=== PATIENT | female | born 1945 | race Caucasian/White ===

== ENCOUNTER 2022-09-01 10:09 | Emergency (ER) | payer MEDICARE, SELFPAY ==
[2022-09-01 10:14] VITALS: BP 190/90; PULSE 92; RESP 20; TEMP 37.1; O2SAT 97; BMI 25.2
--- NOTE | 2022-09-01 10:30 | ED.URI1 ---
HPI - URI/Sore Throat General Chief Complaint: Upper Respiratory Infection Stated Complaint: URTI COMPLAINTS Time Seen by Provider: 09/01/22 10:30 Source: patient Limitations: no limitations History of Present Illness HPI Narrative: He presents emergency department complaining of a cough. She states she's had a cough for 10 days. She states the cough is productive at times but she doesn't spit it out so does not know what color it is. She states the cough is worsening and is making her gag. She denies any shortness of breath or wheezing. She denies any ingestion, or sore throat. Dr. Tran on Tuesday and was told to go to the emergency department. She ended up going to the urgent care and was started on Zithromax, Tessalon Perles, and prednisone. Patient has been taking this medications for the last 3 days and has not noted any improvement. She denies any fever, or chills. She denies any nausea, vomiting, diarrhea, constipation, or abdominal pain. She states is not helping her. She is looking for some relief of the cough. The patient states they did call the test and an influenza test and it was negative. There are no other sick contacts in the household. Related Data Previous Rx's Medication Instructions Recorded acetaminophen 300 mg-codeine 30 mg 1 tab PO Q8H PRN cough #10 tabs 09/01/22 tablet albuterol sulfate 90 mcg/actuation 2 inh inhalation Q4H PRN shortness 09/01/22 aerosol inhaler of breath or wheezing #8.5 grams Allergies Allergy/AdvReac Type Severity Reaction Status Date / Time No Known Drug Allergies Allergy Verified 09/01/22 10:16 Review of Systems ROS Status of ROS 10 or more systems reviewed and unremarkable except as noted in history and below Exam Narrative Exam Narrative: Nurses notes and vital signs reviewed and patient is not hypoxic. General: Nontoxic, Elderly, Well-appearing and in no apparent distress. Skin: Warm, dry, no pallor noted. No Rash Head: Normocephalic, atraumatic. Neck: Supple, non-tender. Eye: Pupils are equal, round and EOMI. No scleral icterus. Ears, Nose, Mouth, and Throat: TM clear, mild posterior oropharynx erythema, no nasal mucosal hypertrophy, uvula is mid-line Oral mucosa is moist Cardiovascular: Regular Rate and Rhythm without murmur, gallop or rub. Respiratory: No accessory muscle use or respiratory distress. Lungs Right lower lobe rhonchi Chest Wall: no tenderness Back: No midline thoracic or lumbar vertebral tenderness. No CVA tenderness Musculoskeletal: normal ROM, no calf or popliteal tenderness, no lower extremity edema/swelling GI: Abdomen is soft, non-distended. Normal bowel sounds. No masses appreciated. No tenderness to palpation. No rebound, guarding, or rigidity noted. Neurological: A&O x4. No cranial nerve dysfunction observed. No truncal ataxia. Moves all extremities. Sensation intact. Psychiatric: Cooperative and interactive. Normal mood and affect. Constitutional Vital Signs - 24 hr 09/01/22 10:14 Temperature 98.8 F Pulse Rate [Monitor] 92 H Respiratory Rate 20 Blood Pressure [Right Arm] 190/90 H Pulse Oximetry 97 Oxygen Delivery Method Room Air Course Vital Signs Vital signs: Vital Signs Temperature 98.8 F 09/01/22 10:14 Pulse Rate 92 H 09/01/22 10:14 Respiratory Rate 20 09/01/22 10:14 Blood Pressure 190/90 H 09/01/22 10:14 Pulse Oximetry 97 09/01/22 10:14 Oxygen Delivery Method Room Air 09/01/22 10:14 Temperature 98.8 F 09/01/22 10:14 Pulse Rate 92 H 09/01/22 10:14 Respiratory Rate 20 09/01/22 10:14 Blood Pressure 190/90 H 09/01/22 10:14 Pulse Oximetry 97 09/01/22 10:14 Oxygen Delivery Method Room Air 09/01/22 10:14 MDM - URI/Sore Throat MDM Narrative Medical decision making narrative: Discussed with patient risks and benefits of taking Tylenol with codeine to help with the cough. She understands. She will take stool softeners. She states she lives with her . We will give her one dose here and see how she does with that. Chest x-ray was ordered.Patient states she drove herself here and cannot take the Tylenol with Codeine now. She was given an injection of Rocephin and she wants to go. She does not want to wait until the respiratory panel is to return. Patient will be given a prescription for an albuterol inhaler too. At this time the patient is without objective evidence of an acute process requiring hospitalization or inpatient management. The patient has remained hemodynamically stable. No additional indication for emergent studies at this time. I answered all questions. Discussed discharge instructions including standard anticipatory guidance and what should prompt a return to the emergency department, including if they get worse are not getting better or develops any new or concerning symptoms. I've given them specific time frame in which to follow-up, and who to follow-up with. The patient demonstrates understanding. Patient is nontoxic and stable for discharge with outpatient follow-up. This note was created with the assistance of a speech recognition program. Although the intention is to generate documents that actually reflects the content of the visit, no guarantees can be provided that every mistake has been identified and corrected by editing. Differential Diagnosis Differential diagnosis: Likely upper respiratory infection, viral infection, bronchitis and pharyngitis Discharge Plan Discharge Chief Complaint: Upper Respiratory Infection Clinical Impression: Pneumonia Patient Disposition: Home, Self-Care Time of Disposition Decision: 11:08 Condition: Good Mode of Transportation: Private Vehicle Prescriptions / Home Meds: New acetaminophen-codeine 300-30 mg tablet 1 tab PO Q8H MDD J18.9 PRN (Reason: cough) Qty: 10 0RF albuterol sulfate 90 mcg/actuation HFA aerosol inhaler 2 inh inhalation Q4H PRN (Reason: shortness of breath or wheezing) Qty: 8.5 0RF Instructions: Pneumonia (ED) Stand Alone Forms: Portal Instructions Referrals: CLAUDE HALL [Physician] - 1 week Physician,Non-Staff, MD [Primary Care Provider] - 1 week
--- NOTE | 2022-09-01 10:37 | XR_ITS ---
The [address] [address] Patient Name: JOSE COLÓN MRN: [id number] date: 1945 Sex: F Assigned Patient Location: ER Current Patient Location: ED.MAIN Accession/Order Number: [id number] Exam Date: 09/01/2022 10:43 Report Date: 09/01/2022 10:59 At the request of: FRANCISCO RUFF Procedure: XR chest 1V EXAMINATION: XR chest 1V HISTORY: cough COMPARISON: No relevant comparison available. FINDINGS: LUNGS: Minimal stranding within medial right lung base. VASCULATURE: No increased pulmonary vasculature. PLEURA: No pneumothorax, effusion, or pleural thickening. CARDIAC: No cardiomegaly or cardiac silhouette abnormality. MEDIASTINUM: No visible mass or adenopathy. BONES: No fracture or visible bone lesion. OTHER: Negative. IMPRESSION: 1. Trace amount of right basilar infiltrates versus atelectasis. Electronically authenticated by: GIUSEPPE MALDONADO Date: 09/01/2022 10:59
[2022-09-01 10:50] LABS: Adenovirus NOT DETECTED (NOT DETECTE); Bordetella parapertussis NOT DETECTED (NOT DETECTE); Coronavirus 229E NOT DETECTED (NOT DETECTE); Coronavirus HKU1 NOT DETECTED (NOT DETECTE); Coronavirus NL63 NOT DETECTED (NOT DETECTE); Coronavirus OC43 NOT DETECTED (NOT DETECTE); Human Metapneumovirus NOT DETECTED (NOT DETECTE); Human Rhinovirus/Enterovirus NOT DETECTED (NOT DETECTE); Influenza A NOT DETECTED (NOT DETECTE); Influenza B NOT DETECTED (NOT DETECTE); Mycoplasma pneumoniae NOT DETECTED (NOT DETECTE); Parainfluenza Virus 1 NOT DETECTED (NOT DETECTE); Parainfluenza Virus 2 NOT DETECTED (NOT DETECTE); Parainfluenza Virus 3 NOT DETECTED (NOT DETECTE); Parainfluenza Virus 4 NOT DETECTED (NOT DETECTE); Respiratory Syncytial Virus NOT DETECTED (NOT DETECTE); SARS-CoV-2 NOT DETECTED (NOT DETECTE)
[2022-09-01 11:15] VITALS: RESP 18; O2SAT 98
[2022-09-01 11:47] LABS: Influenza A\\H1-2009 DETECTED
== END 2022-09-01 11:29 | disposition home or self-care (01) ==
PROVIDERS: Emergency Provider Emergency Medicine
DX: J18.9 Pneumonia, unspecified organism (principal); Z20.822 Contact with and (suspected) exposure to COVID-19
CPT/HCPCS: 0202U; 71045; 96372; 99284

== ENCOUNTER 2023-08-08 08:53 | Emergency (ER) | payer MEDICARE, SELFPAY ==
[2023-08-08 09:17] VITALS: BP 166/94; PULSE 83; TEMP 36.6; O2SAT 100; BMI 25.7
[2023-08-08 09:51] LABS: Bilirubin Urine NEGATIVE (NEGATIVE); Blood Urine NEGATIVE (NEGATIVE); Clarity Urine CLEAR (CLEAR); Color Urine LT. YELLOW (YELLOW); Glucose Urine UA NEGATIVE (NEGATIVE); Ketones Urine NEGATIVE (NEGATIVE); Leukocyte Esterase Urine SMALL (NEGATIVE); Nitrite Urine NEGATIVE (NEGATIVE); Protein Urine NEGATIVE (NEG/TRACE); Specific Gravity Urine <=1.005 (1.005-1.025); Urobilinogen Urine 0.2 EU/dL (0.2-1.0); pH Urine 5.5 (5.0-9.0)
[2023-08-08 10:02] LABS: RBC Urine NONE SEEN #/HPF (0-2)
[2023-08-08 10:03] LABS: Bacteria Urine TRACE #/HPF (NONE SEEN); Cast Seen? NONE SEEN #/LPF (NONE SEEN); Crystals Seen? None Seen #/HPF (None Seen); Mucus Urine NONE SEEN (NONE SEEN); Squamous Epithelial Cell Urine FEW #/LPF (NONE/RARE); Urine Culture Indicated YES
--- NOTE | 2023-08-08 10:07 | XR_ITS ---
The [address] [address] Patient Name: JOSE COLÓN MRN: [id number] date: 1945 Sex: F Assigned Patient Location: ER Current Patient Location: ER Accession/Order Number: [id number] Exam Date: 08/08/2023 10:35 Report Date: 08/08/2023 11:02 At the request of: LAUREN RODRIGUEZ Procedure: XR lumbar spine 2-3V EXAMINATION: XR lumbar spine 2-3V HISTORY: Atraumatic left-sided pain for a month COMPARISON: No relevant comparison available. FINDINGS: BONES: No significant spondylosis, scoliosis, fracture, or visible bony lesion. DISC SPACES: Multilevel mild narrowing. Moderate narrowing L5-S1. PARASPINOUS: Negative. No paraspinous abnormality is seen. 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 XR/XR lumbar spine 2-3V IMPRESSION: 1. No appreciable acute abnormality. 2. Moderate degenerative changes of lumbar spine. Electronically authenticated by: GIUSEPPE MALDONADO Date: 08/08/2023 11:02
--- NOTE | 2023-08-08 10:10 | ED.BACK1 ---
HPI HPI - Back Pain/Injury General Chief Complaint: Back Pain/Injury Stated Complaint: FLANK PAIN, LEFT Time Seen by Provider: 08/08/23 09:11 Source: patient Mode of arrival: walk-in Limitations: no limitations History of Present Illness HPI Narrative: 78-year-old female presents for left-sided back pain. She has had it for a month. It is worse when she bends over and she thought it might be a pulled muscle but it was not getting better so she came in. No dysuria or hematuria or frequency. She has had no trauma and she has no history of back issues. Related Data Previous Rx's ?Medication ?Instructions ?Recorded acetaminophen 300 mg-codeine 30 mg 1 tab PO Q8H PRN cough #10 tabs 09/01/22 tablet albuterol sulfate 90 mcg/actuation 2 inh inhalation Q4H PRN shortness 09/01/22 aerosol inhaler of breath or wheezing #8.5 grams methocarbamol 500 mg tablet 500 mg PO Q8H PRN pain #20 tabs 08/08/23 Allergies Allergy/AdvReac Type Severity Reaction Status Date / Time No Known Drug Allergies Allergy Verified 09/01/22 10:16 Opioid HPI Opioid Management Most Recent Opioid Data: Last Pain Scale 6 08/08/23 10:15 Review of Systems ROS Narrative A ten point review of systems is negative except as noted above. Exam Narrative Exam Narrative: Nurses note and vital signs reviewed and patient is not hypoxic. General: The patient appears well and in no apparent distress. Patient is resting comfortably on cart. Skin: Warm, dry, no pallor noted. There is no rash noted. Head: Normocephalic, atraumatic Eye: Normal conjunctiva, no drainage Ears, Nose, Mouth, and Throat: oral mucosa is moist. Nares patent. Cardiovascular: Regular Rate and Rhythm Respiratory: Patient is in no distress, no accessory muscle use, lungs are clear to auscultation, no wheezing, rales or rhonchi Back: No bruise rash or tenderness present GI: Soft and nontender Musculoskeletal: The patient has no evidence of calf tenderness, no pitting edema, symmetrical pulses noted bilaterally Neurological: A&O, normal speech Psychiatric: Cooperative Constitutional Vital Signs, click to edit/add: Last Vital Signs Temp 97.9 F 08/08/23 09:17 Pulse 69 08/08/23 10:50 Resp 16 08/08/23 10:50 BP 156/75 H 08/08/23 10:50 Pulse Ox 98 08/08/23 10:50 O2 Del Method Room Air 08/08/23 10:50 Course Vital Signs Vital signs: Vital Signs Temperature 97.9 F 08/08/23 09:17 Pulse Rate 83 08/08/23 09:17 Respiratory Rate 18 08/08/23 09:17 Blood Pressure 166/94 H 08/08/23 09:17 Pulse Oximetry 100 08/08/23 09:17 Temperature 97.9 F 08/08/23 09:17 Pulse Rate 69 08/08/23 10:50 Respiratory Rate 16 08/08/23 10:50 Blood Pressure 156/75 H 08/08/23 10:50 Pulse Oximetry 98 08/08/23 10:50 Oxygen Delivery Method Room Air 08/08/23 10:50 MDM - Back Pain/Injury MDM Narrative Medical decision making narrative: Her workup is negative including x-rays and blood work and urinalysis. X-ray showed mild degenerative changes. Findings are discussed with the patient and she is prescribed Robaxin. Treatment diagnosis and follow-up were discussed with the patient. Differential Diagnosis Differential diagnosis: Likely strain of lumbar region and other (UTI, compression fracture) Lab Data Attestation: I reviewed the patient's lab results. Labs: Lab Results 08/08/23 Range/Units 09:30 WBC 7.0 (4.0-11.0) 10^3/uL RBC 3.78 L (4.20-5.40) 10^6/uL Hgb 11.6 L (12.0-16.0) g/dL Hct 34.2 L (36.0-48.0) % MCV 90.5 (81.0-99.0) fL MCH 30.7 (26.7-34.0) pg MCHC 33.9 (29.9-35.2) g/dL RDW 12.1 (11.0-15.0) % Plt Count 298 (150-450) 10^3/uL MPV 9.3 L (9.5-13.5) fL Neut % (Auto) 54.4 (43.0-75.0) % Lymph % (Auto) 25.6 (20.5-60.0) % Stafford % (Auto) 9.7 (1.7-12.0) % Eos % (Auto) 8.8 H (0.9-7.0) % Baso % (Auto) 1.1 (0.2-2.0) % Neut # (Auto) 3.8 (1.4-6.5) 10^3/uL Lymph # (Auto) 1.8 (1.2-3.8) 10^3/uL Stafford # (Auto) 0.7 (0.3-0.8) 10^3/uL Eos # (Auto) 0.6 (0.0-0.7) 10^3/uL Baso # (Auto) 0.1 (0.0-0.1) 10^3/uL Abs Immat Gran (auto) 0.03 (0.00-0.03) 10^3/uL Imm/Tot Granulo (auto) 0.4 (0.0-0.5) % Sodium 133 L (136-145) mmol/L Potassium 3.7 (3.5-5.1) mmol/L Chloride 97 L (98-107) mmol/L Carbon Dioxide 29.9 (21.0-32.0) mmol/L Anion Gap 9.8 BUN 14.0 (7.0-18.0) mg/dL Creatinine 0.73 (0.55-1.02) mg/dL Est GFR ( Amer) >60 (>=60) Est GFR (Non-Af Amer) >60 (>=60) BUN/Creatinine Ratio 19.2 Glucose 107 H (74-106) mg/dL Calcium 9.4 (8.5-10.1) mg/dL Urine Color Lt. yellow (YELLOW) Urine Clarity Clear (CLEAR) Urine pH 5.5 (5.0-9.0) Ur Specific [place] <=1.005 A (1.005-1.025) Urine Protein Negative (NEG/TRACE) mg/dL Urine Glucose (UA) Negative (NEGATIVE) mg/dL Urine Ketones Negative (NEGATIVE) mg/dL Urine Occult Blood Negative (NEGATIVE) Urine Nitrite Negative (NEGATIVE) Urine Bilirubin Negative (NEGATIVE) Urine Urobilinogen 0.2 (0.2-1.0) EU/dL Ur Leukocyte Esterase Small A (NEGATIVE) Urine RBC None seen (0-2) #/HPF Urine WBC 2-5 A (NONE SEEN) #/HPF Ur Squamous Epith Cells Few A (NONE/RARE) #/LPF Urine Crystals None seen (None Seen) #/HPF Urine Bacteria Trace A (NONE SEEN) #/HPF Urine Casts None seen (NONE SEEN) #/LPF Urine Mucus None seen (NONE SEEN) Ur Culture Indicated? Yes Imaging Data Lumbar x-ray: Radiologist's impression: ITS Impressions Lumbar Spine X-Ray 08/08/23 10:07 IMPRESSION: 1. No appreciable acute abnormality. 2. Moderate degenerative changes of lumbar spine. Electronically authenticated by: GIUSEPPE MALDONADO Date: 08/08/2023 11:02 Discharge Plan Discharge Stand Alone Forms: Portal Instructions Chief Complaint: Back Pain/Injury Clinical Impression: Low back pain Patient Disposition: Home, Self-Care Time of Disposition Decision: 11:38 Condition: Good Mode of Transportation: Private Vehicle Prescriptions / Home Meds: New methocarbamol 500 mg tablet 500 mg PO Q8H PRN (Reason: pain) Qty: 20 0RF No Action acetaminophen-codeine 300-30 mg tablet 1 tab PO Q8H MDD J18.9 PRN (Reason: cough) Qty: 10 0RF albuterol sulfate 90 mcg/actuation HFA aerosol inhaler 2 inh inhalation Q4H PRN (Reason: shortness of breath or wheezing) Qty: 8.5 0RF Print Language: Persian Instructions: Acute Low Back Pain (ED) Referrals: Tian Mares DO [Primary Care Provider] - 1 week
[2023-08-08 10:30] LABS: Basophils Absolute Auto 0.1 10^3/uL (0.0-0.1); Basophils Percent Auto 1.1 % (0.2-2.0); Eosinophils Absolute Auto 0.6 10^3/uL (0.0-0.7); Eosinophils Percent Auto 8.8 % (0.9-7.0); Hematocrit 34.2 % (36.0-48.0); Hemoglobin 11.6 g/dL (12.0-16.0); Immature Granulocytes Abs Auto 0.03 10^3/uL (0.00-0.03); Immature Granulocytes Pct Auto 0.4 % (0.0-0.5); Lymphocytes Absolute Auto 1.8 10^3/uL (1.2-3.8); Lymphocytes Percent Auto 25.6 % (20.5-60.0); Mean Corpuscular HGB Conc 33.9 g/dL (29.9-35.2); Mean Corpuscular Hemoglobin 30.7 pg (26.7-34.0); Mean Corpuscular Volume 90.5 fL (81.0-99.0); Mean Platelet Volume 9.3 fL (9.5-13.5); Monocytes Absolute Auto 0.7 10^3/uL (0.3-0.8); Monocytes Percent Auto 9.7 % (1.7-12.0); Neutrophils Absolute Auto 3.8 10^3/uL (1.4-6.5); Neutrophils Percent Auto 54.4 % (43.0-75.0); Platelet Count 298 10^3/uL (150-450); Red Blood Count 3.78 10^6/uL (4.20-5.40); Red Cell Distribution Width 12.1 % (11.0-15.0)
[2023-08-08 10:35] LABS: Anion Gap 9.8; BUN Creatinine Ratio 19.2; Calcium 9.4 mg/dL (8.5-10.1); Carbon Dioxide 29.9 mmol/L (21.0-32.0); Chloride 97 mmol/L (98-107); Estimated GFR (African America >60 (>=60); Estimated GFR (Non-African Ame >60 (>=60); Glucose 107 mg/dL (74-106); Potassium 3.7 mmol/L (3.5-5.1); Sodium 133 mmol/L (136-145)
[2023-08-08 10:50] VITALS: BP 156/75; PULSE 69; O2SAT 98
[2023-08-08 11:43] VITALS: BP 145/75; PULSE 69; O2SAT 98
--- NOTE | 2023-08-14 08:53 | PC.NURSE ---
08/14/23 [address] portillo request no s/sx of uti at this time, due to low level of bacteria in urine and no s/sx no need for treatment at this time. pt educated as such and if s/sx do develop to f/u with pcp or in er for further tx. aDvid Zheng RN
== END 2023-08-08 11:47 | disposition home or self-care (01) ==
PROVIDERS: Emergency Provider Emergency Medicine; PCP Family Medicine
DX: M54.50 Low back pain, unspecified (principal); R82.90 Unspecified abnormal findings in urine
CPT/HCPCS: 36415; 72100; 80048; 81001; 85025; 87086; 87150; 87186; 99284

== ENCOUNTER 2024-10-29 15:18 | Outpatient (OUT) | payer MEDICARE, SELFPAY ==
--- OUTSIDE RECORDS SUMMARY | 2024-10-29 15:22 | XMS_ITS | Encounter Summary ---
Author Organization [facility] Address [address] [place] [address] Phone Care Team Providers Care Jewelry Coater Name Role Phone Tian Mares DO Primary Care Provider Encounter Details Date Type Department Care Team (Late st Contact Info) Description 12/01/2022 Scanned Document [facility] [address] [place] [address] Conversion, Onbase Social History Tobacco Use Types Packs/Day Years Used Date Smoking Tobacco: Never Assessed Comments Unknown Sex and Gender Information Value Date Recorded Sex Assigned at Not on file Legal Sex Female 2:04 PM EDT Gender Identity Not on file Sexual Orientation Not on file documented as of this encounter Plan of Treatment Not on file documented as of this encounter Procedures Procedure Name Priority Date/Time Associated Diagnosis Comments ELECTROCARDIOGRAM RHYTHM STRIP 12/01/2022 documented in this encounter Results * ELECTROCARDIOGRAM RHYTHM STRIP (12/01/2022) Narrative 12/01/2022 Ordered by an unspecified provider. us Onbase Conversion ECG ORDERABLES Final Result documented in this encounter Visit Diagnoses Not on filedocumented in this encounter Care Teams Jewelry Coater Relationship Specialty Start Date End Date Tian Mares DO PCP - General 12/13/22 documented as of this encounter
--- OUTSIDE RECORDS SUMMARY | 2024-10-29 15:22 | XMS_ITS | Clinical Summary ---
Author Organization [facility] Address [address] [place] [address] Phone Care Team Providers Care Top Executive Name Role Phone Tian Mares Leonard SOLITARIO Primary Care Provider [phone] Social History Tobacco Use Types Packs/Day Years Used Date Smoking Tobacco: Never Assessed Comments Unknown Sex and Gender Information Value Date Recorded Sex Assigned at Not on file Legal Sex Female 2:04 PM EDT Gender Identity Not on file Sexual Orientation Not on file Last Filed Vital Signs Vital Sign Reading Time Taken Comments Blood Pressure 188/80 12/13/2022 11:49 AM EDT Pulse 72 12/13/2022 11:48 AM EDT Temperature - - Respiratory Rate - - Oxygen Saturation - - Inhaled Oxygen Concentration - - Weight 67.1 kg (148 lb) 12/13/2022 11:48 AM EDT Height 162.6 cm (5' 4 ) 12/13/2022 11:48 AM EDT Body Mass Index 25.4 12/13/2022 11:48 AM EDT Plan of Treatment Health Maintenance Due Date Last Done Comments Lipid Panel 1945 Yearly Adult Physical 1945 DTaP/Tdap/Td Vaccines (1 - Tdap) 1966 Pneumococcal Vaccine (1 of 1 - PCV) 1994 Zoster Vaccines (1 of 2) 1994 Bone Density Scan 2009 RSV High Risk: (Elderly (60+ ) or Population) (1 - 1-dose 75+ series) 2019 COVID-19 Vaccine (1 - 2023-2 5 season) 2023 Influenza Vaccine (#1) 2024 HIB Vaccines Aged Out No longer eligi ble based on patient's age to complete this topic HPV Vaccines Aged Out No longer eligi ble based on patient's age to complete this topic Hepatitis A Vaccines Aged Out No long er eligible based on patient's age to complete this topic Hepatitis B Vaccines Aged Out No long er eligible based on patient's age to complete this topic IPV Vaccines Aged Out No longer eligi ble based on patient's age to complete this topic Meningococcal Vaccine Aged Out No arnoldo alexx eligible based on patient's age to complete this topic Rotavirus Vaccines Aged Out No longer eligible based on patient's age to complete this topic Care Teams Top Executive Relationship Specialty Start Date End Date Tian Mares DO PCP - General 12/13/22
--- OUTSIDE RECORDS SUMMARY | 2024-10-29 15:22 | XMS_ITS | Encounter Summary ---
Author Organization [facility] Address [address] [place] [address] Phone Care Team Providers Care Application Development Project Manager Name Role Phone Tian Mares DO Primary Care Provider [phone] Encounter Details Date Type Department Care Team (Late st Contact Info) Description 12/02/2022 Scanned Document [facility] [address] [place] [address] Conversion, Onbase Social History Tobacco Use Types Packs/Day Years Used Date Smoking Tobacco: Never Assessed Comments Unknown Sex and Gender Information Value Date Recorded Sex Assigned at Not on file Legal Sex Female 2:04 PM EDT Gender Identity Not on file Sexual Orientation Not on file documented as of this encounter Plan of Treatment Not on file documented as of this encounter Visit Diagnoses Not on filedocumented in this encounter Care Teams Application Development Project Manager Relationship Specialty Start Date End Date Tian Mares DO PCP - General 12/13/22 documented as of this encounter
--- OUTSIDE RECORDS SUMMARY | 2024-10-29 15:22 | XMS_ITS | Encounter Summary ---
Author Organization [facility] Address [address] [place] [address] Phone Care Team Providers Care Lead Caster Helper Name Role Phone Tian Mares DO Primary Care Provider [phone] Encounter Details Date Type Department Care Team (Late st Contact Info) Description 11/24/2022 Orders Only [facility] [address] [place] [address] Conversion, Onbase Social History Tobacco Use Types Packs/Day Years Used Date Smoking Tobacco: Never Assessed Comments Unknown Sex and Gender Information Value Date Recorded Sex Assigned at Not on file Legal Sex Female 2:04 PM EDT Gender Identity Not on file Sexual Orientation Not on file documented as of this encounter Plan of Treatment Scheduled Orders Name Type Priority Associated Diagnoses Orde r Schedule OUTSIDE LAB SCAN Lab Ordered: 11/24/2022 documented as of this encounter Visit Diagnoses Not on filedocumented in this encounter Care Teams Lead Caster Helper Relationship Specialty Start Date End Date Tian Mares DO PCP - General 12/13/22 documented as of this encounter
--- OUTSIDE RECORDS SUMMARY | 2024-10-29 15:22 | XMS_ITS | Clinical Summary ---
Author Organization [facility] Address [address] [place] [address] Care Team Providers Care Clear Coat Sprayer Name Role Phone Unavailable Primary Care Provider Unavailabl e Social History Tobacco Use Types Packs/Day Years Used Date Smoking Tobacco: Never Assessed Comments Unknown Sex and Gender Information Value Date Recorded Sex Assigned at Not on file Legal Sex Female 7:01 PM EDT Gender Identity Not on file Sexual Orientation Not on file Last Filed Vital Signs Vital Sign Reading Time Taken Comments Blood Pressure 128/60 10/05/2018 12:00 PM EDT Pulse - - Temperature - - Respiratory Rate - - Oxygen Saturation - - Inhaled Oxygen Concentration - - Weight 66.7 kg (147 lb) 08/17/2019 12:00 PM EDT Height 161.3 cm (5' 3.5 ) 08/17/2019 12:00 PM ED T Body Mass Index 25.63 08/17/2019 12:00 PM EDT Plan of Treatment Not on file Insurance [facility] MEDIC[facility]VANTAGE
--- OUTSIDE RECORDS SUMMARY | 2024-10-29 15:22 | XMS_ITS | Encounter Summary ---
Author Organization [facility] Address [address] [place] [address] Phone Care Team Providers Care Hardware Technician Name Role Phone Tian Mares DO Primary Care Provider [phone] Encounter Details Date Type Department Care Team (Late st Contact Info) Description 12/13/2022 Scanned Document [facility] [address] [place] [address] Conversion, Onbase Social History Tobacco Use Types Packs/Day Years Used Date Smoking Tobacco: Never Assessed Comments Unknown Sex and Gender Information Value Date Recorded Sex Assigned at Not on file Legal Sex Female 2:04 PM EDT Gender Identity Not on file Sexual Orientation Not on file documented as of this encounter Functional Status * Little interest or pleasure in doing things Answer Date of Assessment Author Not at all 12/13/2022 11:48 AM EDT Conversi on, [employer] Vitals documented as of this encounter Plan of Treatment Not on file documented as of this encounter Procedures Procedure Name Priority Date/Time Associated Diagnosis Comments ELECTROCARDIOGRAM RHYTHM STRIP 12/13/2022 documented in this encounter Results * ELECTROCARDIOGRAM RHYTHM STRIP (12/13/2022) Narrative 12/13/2022 Ordered by an unspecified provider. us Onbase Conversion ECG ORDERABLES Final Result documented in this encounter Visit Diagnoses Not on filedocumented in this encounter Care Teams Hardware Technician Relationship Specialty Start Date End Date Tian Mares DO PCP - General 12/13/22 documented as of this encounter
--- NOTE | 2024-10-29 15:26 | XR_ITS ---
The [place] [id number] Patient Name: JOSE COLÓN MRN: [id number] date: 1945 Sex: F Assigned Patient Location: [facility] Current Patient Location: [facility] Accession/Order Number: [id number] Exam Date: 10/29/2024 15:58 Report Date: 10/29/2024 15:59 At the request of: TOMMIE HALL DO Procedure: XR chest 2V Chest 2 views CLINICAL HISTORY: Acute Cough COMPARISON: Chest 09/01/2022 FINDINGS: Heart normal in size. Mild bibasilar scarring. No consolidation pneumothorax pleural effusion or free air. XR/XR chest 2V IMPRESSION: BIBASILAR SCARRING. NO CONSOLIDATION TO SUGGEST PNEUMONIA. Impression dictated by: Ford Escobar Jr., D.O. 10/29/2024 3:59 PM Dictation Location: [place] [address] Electronically authenticated by: [id number] Date: 10/29/2024 15:59
== END 2024-10-29 15:19 | disposition home or self-care (01) ==
LOC: RAD 15:20
PROVIDERS: PCP Family Medicine; Visit Provider Family Medicine
DX: R05.1 Acute cough (principal)
CPT/HCPCS: 71046

== ENCOUNTER 2025-01-21 08:17 | Outpatient (OUT) | payer MEDICARE, SELFPAY ==
--- OUTSIDE RECORDS SUMMARY | 2025-01-21 08:23 | XMS_ITS | Clinical Summary ---
Author Organization [facility] Address [address] [place] [address] Phone Care Team Providers Care Cullet Crusher Name Role Phone Tian Mares Leonard SOLITARIO Primary Care Provider [phone] Social History Tobacco UseTypesPacks/DayYears UsedDateSmoking Tobacco: Never Assessed CommentsUnknownSex and Gender InformationValueDate RecordedSex Assigned at Not on fileLegal YhoGajzya36/14/2023 2:04 PM EDTGender IdentityNot on fileSexual OrientationNot on file Last Filed Vital Signs Vital SignReadingTime TakenCommentsBlood Ryqpouun152/8009 11:49 AM EDT Maqyc6913/25/2023 11:48 AM EDTTemperature--Respiratory Rate--Oxygen Saturation-- Inhaled Oxygen Concentration--Mmeomt06.1 kg (148 lb)12/13/2022 11:48 AM EDT Scueqe858.6 cm (5' 4 )12/13/2022 11:48 AM EDTBody Mass Index25.409 11:48 AM EDT Plan of Treatment Health MaintenanceDue DateLast DoneCommentsLipid Panel5Yearly Adult Lelghhpn16/25/1946DTaP/Tdap/Td Vaccines (1 - Tdap)1966Pneumococcal Vaccine (1 of 1 - PCV)1994Zoster Vaccines (1 of 2)1994Bone Density Scan 2009RSV High Risk: (Elderly (60+) or Population) (1 - 1-dose 75+ series)2019Influenza Vaccine (#1)2024OVID-19 Vaccine (1 - 2024- season)2024HIB VaccinesAged OutNo longer eligible based on patient's age to complete this topicHPV VaccinesAged OutNo longer eligible based on patient's age to complete this topicHepatitis A VaccinesAged OutNo longer eligible based on patient's age to complete this topicHepatitis B VaccinesAged OutNo longer eligible based on patient's age to complete this topicIPV VaccinesAged OutNo longer eligible based on patient's age to complete this topicMeningococcal VaccineAged OutNo longer eligible based on patient's age to complete this topic Rotavirus VaccinesAged OutNo longer eligible based on patient's age to complete this topic Care Teams Team MemberRelationshipSpecialtyStart DateEnd Date Tian Mares DO [facility] - General12/13/22
--- OUTSIDE RECORDS SUMMARY | 2025-01-21 08:23 | XMS_ITS | Clinical Summary ---
Author Organization [facility] Address [address] [place] [address] Care Team Providers Care Searchlight Operator Name Role Phone Unavailable Primary Care Provider Unavailabl e Social History Tobacco UseTypesPacks/DayYears UsedDateSmoking Tobacco: Never Assessed CommentsUnknownSex and Gender InformationValueDate RecordedSex Assigned at Not on fileLegal HaqIfgqta28/15/2023 7:01 PM EDTGender IdentityNot on fileSexual OrientationNot on file Last Filed Vital Signs Vital SignReadingTime TakenCommentsBlood Wkilfdmx871/6007 12:00 PM EDT Pulse--Temperature--Respiratory Rate--Oxygen Saturation--Inhaled Oxygen Concentration--Fveolg98.7 kg (147 lb)08/17/2019 12:00 PM OSAZxrblx733.3 cm (5' 3.5 )08/17/2019 12:00 PM EDTBody Mass Index25.63008/17/2019 12:00 PM EDT Plan of Treatment Not on file Insurance
--- OUTSIDE RECORDS SUMMARY | 2025-01-21 08:26 | XMS_ITS | CCD ---
Author Organization [facility] CliniSyri Care Team Providers Care Psychological Examiner Name Role Phone Tian Hlal Unavailable Suzan, DO Tian Primary Care Provider [phone] Suzan, DO Tian Attending Provider DO Tian Hall Primary Care Provider [phone] Suzan DO Tian Attending Provider [phone] Tian Hall P Unavailable Unavailable Unavailable Suzan, Dr. Tian Phillips Primary Care Unavaila ble Charu SAM, Dr. Shaheen Phillips Referring Unavailable Charu SAM, Dr. Shaheen Phillips Attending Unavailable DO Tian Hall Primary Care Provider [phone] DO Tian Hall Attending Provider DO Tian Hall Referring Provider [phone] Self, Referral Attending Provider Unavailable Tian Hall DO Primary Care Provider Tian Hall DO Referring Provider [phone] Self, Referral Attending Provider Unavailable Tian Hall DO Attending Provider TIAN HALL P Referring Unavailable Tian Hall DO Primary Care Provider Felicia IRIZARRY, Edmond Haque Attending Provider Tian Hall Primary Care Unavailable Tian Hall Attending Unavailable Tian Hall Admitting Unavailable Self, Referral Attending Unavailable Tian Hall Primary Care Unavailable Tian Hall Referring Unavailable Self, Referral Admitting Unavailable Tian Hall Primary Care Unavailable Tian Hall Attending Unavailable Tian Hall Admitting Unavailable Tian Hall Primary Care Unavailable Edmond Duarte Admitting Edmond Ash Attending Tian Ortiz DO Primary Care Provider Edmond Duarte MD Attending Provider Teresa Chapman APRN Attending Provider Tian Hall DO Attending Provider Medications Current Medications MedicationDrug Class(es)DatesSig (Normalized)Sig (Original)Accu-Chek Stephania Plus - (20 sources)Start: 01-27-4624Zxgi-Chek Stephania Plus - check glucose In Vitro one time per day for E11.9 May, ActiveStart: 06-40-4018Dhjk-Chek Stephania Plus - as directed In Vitro May, Activeamoxicillin 500 mg / clavulanate 125 mg oral tablet (1 source)Penicillin-class AntibacterialStart: 85-65-8309nnxa 1 tablet by mouth every twelve hoursAmoxicillin-Pot Clavulanate (Augmentin) 500-125 mg tablet Active 1 TAB PO Every 12 hours October 25, 2024 12:00am Complies with drug therapybenzonatate 100 mg oral capsule (3 sources)Non-narcotic AntitussiveStart: 02-59-9196wmqi 1 capsule by mouth three times daily as neededTessalon Perles 100 MG 1 capsule as needed Orally Three times a day for 7 days Aug, ActiveStart: 33-84-6681fybh 1 capsule by mouth every eight hoursBenzonatate 200 MG 1 capsule Orally Three times a day for 30 days Apr, ActiveBlood Sugar Diagnostic (3 sources)Start: 72-11-7661Jehjy Sugar Diagnostic Active 0 .ROUTE June 21, 2023 12:00am As directedCalcium (20 sources)Phosphate Binder, CalciumCalcium as directed Orally Activecalcium acetate 600 mg oral tablet (17 sources)Start: 19-76-6184dkug 600 mg by mouth once dailycalcium acetate Active 600 MG PO Daily March 30, 2024 9:59am Complies with drug therapy Start: 06-21-2023 End: 14-85-6428tsojvks acetate Discontinued PO June 21, 2023 12:00am March 30, 2024 10:03amStart: 06-21-2023 End: 03-69-1992dpjuggh acetate Discontinued PO June 20, 2023 11:00pm March 30, 2024 9:03amStart: 49-06-0758ycwthku acetate Active PO June 21, 2023 12:00amChia Seed - (20 sources)Bam Seed - as directed Orally Activecholecalciferol 0.125 mg oral capsule (7 sources)Vitamin DStart: 04-24-5063smev 1 capsule by mouth once daily Cholecalciferol (Vitamin D3) 125 mcg (5,000 unit) capsule Active 125 MCG PO Daily March 30, 2024 1:00am Complies with drug therapycinnamon bark 500 mg oral capsule (18 sources)Start: 06-21-2023 End: 14-24-2939kuwt 1 capsule by mouth once dailyCinnamon Bark 500 mg capsule Active 1000 MG PO Daily March 30, 2024 9:58am Complies with drug therapy Start: 77-73-6015Kgqrsizk Bark Active MG PO As Directed June 21, 2023 12:00am Cinnamon 500 MG as directed Orally Activecinnamon preparation 500 mg oral tablet (20 sources)Non-Standardized Food Allergenic ExtractCinnamon 500 MG as directed Orally Activeempagliflozin 10 mg oral tablet (3 sources)Sodium-Glucose Cotransporter 2 InhibitorStart: 17-41-8082suly 1 tablet by mouth every twenty-four hoursJardiance 10 MG 1 tablet Orally Once a day for 90 days Nov, ActiveFish Oils (20 sources)take 1 capsule by mouth once dailyFish Oil 1000 MG 1 capsule Orally Once a day ActiveFlaxseed extract (10 sources)Non-Standardized Food Allergenic Extract, Non-Standardized Plant Allergenic ExtractStart: 76-25-5225Lhcmwavo powder Active EACH PO June 21, 2023 12:00am Complies with drug therapyStart: 52-45-1444Mzsdcybc powder Active EACH PO June 21, 2023 12:00amStart: 06-85-3543Bweowdzr powder Active EACH PO June 20, 2023 11:00pmStart: 88-81-9077Lxlwnans Active EACH PO June 21, 2023 12:00amFlaxseed Oil 1000 MG (19 sources)Flaxseed Oil 1000 MG as directed Orally Activefluorouracil 50 mg/ml topical cream (3 sources)Nucleoside Metabolic InhibitorStart: 47-76-8321Nxwpnw 5 % 1 application to affected area Externally Twice a day Apr, Active glimepiride 1 mg oral tablet (10 sources)SulfonylureaStart: 01-31-2024 End: 00-12-0230avia 1 tablet by mouth twice dailyGlimepiride 1 mg tablet Active 1 MG PO Twice daily 180 July 30, 2024 12:39pm Complies with drug therapyStart: 55-95-0549gzhg 1 tablet by mouth every twenty-four hoursGlimepiride 1 MG 1 tablet with breakfast or the first main meal of the day Orally Once a day for 90 days 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 Quantity: 90 Refills: 3 Ordered: 13-Dec-2022 Shaheen Box MD Start : 13-Dec-2022 Active NEW START Hydrochlorothiazide-12.5 mg 12.5 mg (3 sources)take 1 tablet by mouth once dailyHydrochlorothiazide-12.5 mg 12.5 mg 1 tablet Orally Once a day for 90 days Activetake 1 tablet by mouth once daily Hydrochlorothiazide-12.5 mg 12.5 mg 1 tablet Orally Once a day Active levoFLOXacin 500 mg oral tablet (1 source)Quinolone AntimicrobialStart: 86-80-1602pzmy 1 tablet by mouth once dailyLevofloxacin 500 mg tablet Active 500 MG PO Daily 09 24October 29, 2024 12:00am Complies with drug therapylevothyroxine sodium 0.05 mg oral tablet (20 sources)l-ThyroxineStart: 06-21-2023 End: 75-73-7563srka 1 tablet by mouth once dailyLevothyroxine 50 mcg tablet Active 50 MCG PO Daily March 15, 2024 1:18pm Complies with drugtherapy Start: 51-06-7739Tyxtnwtwluxkw Sodium 50 MCG 1 tablet every morning on an empty stomach Orally Once a day for 90 days Oct, ActiveStart: 10-21-2016 Levothyroxine Sodium 50 MCG 1 tablet every morning on an empty stomach Orally Once a day Oct, Activetake 1 capsule by mouth once daily before breakfastLevothyroxine Sodium 50 MCG Oral Capsule TAKE 1 CAPSULE BY MOUTH EVERY MORNING BEFORE BREAKFAST ON EMPTY STOMACH Quantity: 90 Refills: 3 Ordered: 13-Dec-2022 DO Activelinseed oil 1000 mg oral capsule (1 source)Flaxseed Oil 1000 MG as directed Orally Activeniacin 500 mg oral tablet (7 sources)Nicotinic AcidStart: 84-91-5219besi 1 tablet by mouth once daily Niacin 500 mg tablet Active 500 MG PO Daily March 30, 2024 1:00am Complies with drug therapyomega-3 fatty acids (Fish Oil) (17 sources)Start: 07-74-7449uwrr 1 capsule by mouth once dailyomega-3 fatty acids (Fish Oil) Active 1 CAP PO Daily March 30, 2024 10:00am Complies with drug therapyStart: 92-24-7618rvjf 1 capsule by mouth once dailyomega-3 fatty acids (Fish Oil) Active 1 CAP PO Daily March 30, 2024 10:00amStart: 11-25-9890gusl 1 capsule by mouth once dailyomega-3 fatty acids (Fish Oil) Active 1 CAP PO Daily March 30, 2024 9:00amStart: 06-21-2023 End: 15-00-1023dpahq-3 fatty acids (Fish Oil) Discontinued PO June 21, 2023 12:00am March 30, 2024 10:03amStart: 06-21-2023 End: 31-19-7736nhrir-3 fatty acids (Fish Oil) Discontinued PO June 20, 2023 11:00pm March 30, 2024 9:03amStart: 50-04-8096ewaez-3 fatty acids (Fish Oil) Active PO June 21, 2023 12:00ampredniSONE 10 mg oral tablet (10 sources)Start: 77-54-4849Qvtdaxcusm 10 mg tablet Active 10 MG PO .COMPLEX October 29, 2024 12:00am 10 mg orally BID x 5 days, QD X5 DAYS; Complies with drug therapyStart: 10-29-2024 End: 26-41-5829Tgpkggapym 20 mg tablet Discontinued 20 MG PO .COMPLEX October 29, 2024 12:00am October 29, 2024 9:36am 20 mg orally BID x 5 days, QD x 5 days;Start: 10-19-2024 End: 79-44-9128rheb 1 tablet by mouth once dailyPrednisone 20 mg tablet Discontinued 20 MG PO Daily 5 October 19, 2024 12:00am October 25, 2024 1:23pm Start: 47-12-6080ibhm 1 tablet by mouth every twelve hoursprednisone 20 MG 1 tablet Orally BID for 5 Aug, ActiveStart: 68-55-2916adcykdGFJE 20 MG 1 tablet Orally BID X 5 DAYS, QD X 5 DAYS for 10 DAYS Apr, ActiveStart: 13-22-3157yhldsrAOSQ 20 MG 1 tablet Orally BID x 5 days then daily x 5 days for 10 days Oct, ActiveProbiotic - (3 sources)Probiotic - Orally ActiveTurmeric Root Extract 500 mg tablet (7 sources)Start: 28-62-7459mrpk 1 tablet by mouth once dailyTurmeric Root Extract 500 mg tablet Active 1000 MG PO Daily March 30, 2024 1:00am Complies withdrug therapyStart: 04-02-1886ppfj 1 tablet by mouth once dailyTurmeric Root Extract 500 mg tablet Active 1000 MG PO Daily March 30, 2024 1:00amStart: 81-65-8288jxtt 1 tablet by mouth once dailyTurmeric Root Extract 500 mg tablet Active 1000 MG PO Daily March 30, 2024 12:00amubidecarenone 100 mg oral capsule (7 sources)Start: 60-50-4712Ijctyivq Q10 (Coq-10) 100 mg capsule Active 300 MG PO Daily March 30, 2024 1:00am Complies withdrug therapyvitamin b12 1 mg oral capsule (7 sources)Vitamin H72Wtnnp: 69-80-7791yqzq 1 capsule by mouth once daily Cyanocobalamin (Vitamin B-12) 1,000 mcg capsule Active 1000 MCG PO Daily March 30, 2024 1:00am Complies with drug therapyVitamin D 1000 UNIT (3 sources)take 1 tablet by mouth once dailyVitamin D 1000 UNIT 1 tablet Orally Once a day for 30 day(s) Activevitamin e 180 mg oral capsule (7 sources)Start: 20-08-5609tzvc 1 capsule by mouth once dailyVitamin E (Dl, Acetate) 180 mg (400 unit) capsule Active 180 MG PO Daily March 30, 2024 1:00am Complies with drug therapy Completed/Discontinued Medications MedicationDrug Class(es)DatesSig (Normalized)Sig (Original)azithromycin 250 mg oral tablet (8 sources)Macrolide AntimicrobialStart: 10-19-2024 End: 40-06-3835Bpfvqwyivvwg (Zithromax Z-Yuan) 250 mg tablet Discontinued 0 PO .COMPLEX 6 October 19, 2024 12:00am October 25, 2024 1:22pm For 250 mg dose pack: take 500 mg today (day 1), then 250 mg for 4 days (days 2-5) POStart: 55-11-3437Ueoryebxqdef 250 MG 2 tablet on the first day, then 1 tablet daily for 4 days Orally Once a day for5 day(s) Aug, ActiveStart: 05-04-2022 Zithromax Z-Yuan 250 MG 2 tablets on the first day, then 1 tablet daily for 4 days Orally Once a dayfor 5 day(s) Apr, ActiveStart: 17-52-6990Recqdzoje Z-Yuan 250 MG as directed Orally as directed Oct, Activebetamethasone 1 mg/ml topical cream (20 sources)CorticosteroidStart: 06-21-2023 End: 83-19-4200Wwaweumorhhnq Valerate 0.1 % cream Discontinued 1 APPLIC TOPICAL Daily June 21, 2023 12:00am March 30, 2024 10:02am 1 application to affected area Externally Once a dayStart: 30-78-7049Hhcnrrqephanx Valerate 0.1 % 1 application to affected area Externally Once a day Oct, ActiveStart: 44-09-4850Nvyqydickcuxm Valerate 0.1 % 1 application to affected area Externally Once a day Oct, Activeesomeprazole 40 mg delayed release oral capsule (20 sources)Proton Pump InhibitorStart: 06-22-2023 End: 50-57-7193drgh 1 capsule by mouth once dailyEsomeprazole Magnesium 40 mg capsule,delayed release(DR/EC) Discontinued 40 MG PO Daily June 22, 2023 9:42am March 30, 2024 10:03amlisinopril 20 mg oral tablet (20 sources)Angiotensin Converting Enzyme InhibitorStart: 06-21-2023 End: 31-28-9396szgc 1 tablet by mouth once dailyLisinopril 20 mg tablet Discontinued 20 MG PO Daily June 21, 2023 12:00am June 22, 2023 9:42amStart: 92-45-3930vgvr 1 tablet by mouth every twenty-four hoursLisinopril 20 MG 1 tablet Orally Once a day for 90 days Jan, ActiveStart: 81-79-3700hfmc 1 tablet by mouth every twenty-four hoursLisinopril 5 MG 1 tablet Orally Once a day for 90 days Jan, ActivemetFORMIN hydrochloride 500 mg oral tablet (20 sources)BiguanideStart: 06-21-2023 End: 57-56-9191vuuq 1 tablet by mouth twice dailyMetformin 500 mg tablet Discontinued 500 MG PO Twice daily 180 June 22, 2023 9:42am July 04, 2024 3:42pmStart: 67-67-6467plok 1 tablet by mouth every twelve hoursmetFORMIN HCl 500 mg 1 tablet with meals Orally Twice a day Jan, Activeolmesartan medoxomil 20 mg oral tablet (20 sources)Angiotensin 2 Receptor BlockerStart: 06-22-2023 End: 15-11-4101uhyg 1 tablet by mouth once dailyOlmesartan 20 mg tablet Discontinued 20 MG PO Daily March 19, 2024 10:04am March 19, 2024 12:52pmsimvastatin 20 mg oral tablet (20 sources)HMG-CoA Reductase InhibitorStart: 06-21-2023 End: 94-51-3914dofv 1 tablet by mouth once dailySimvastatin 20 mg tablet Discontinued 20 MG PO Daily June 22, 2023 8:58am June 22, 2023 9:43am Start: 01-58-6153Tiyknlskvoy 20 MG 1 tablet every evening Orally Once a day Sep, Activesucralfate 1000 mg oral tablet (9 sources)Aluminum ComplexStart: 07-13-2023 End: 49-16-0296yjjn 1 tablet by mouth twice daily 30 minutes before breakfast Sucralfate (Carafate) 1 gram tablet Discontinued 1 GM PO Twice daily 60 July 13, 2023 12:00am March 30, 2024 10:03am take 1 tablet 30 mins before breakfast and then take 1 tablet 30 mins before dinner Problems Active Problems Problem ClassificationProblemDateDocumented DateEpisodic/ChronicAbdominal pain (11 sources)Epigastric pain; Translations: [Epigastric pain]49-00-0913Xyxujwmj Acute bronchitis (2 sources)Acute bronchiolitis due to respiratory syncytial virus; Translations: [Acute bronchitis due to respiratory syncytial virus]Episodic Administrative/social admission (8 sources)Patient encounter status; Translations: [Other specified counseling] 33-35-2285NmyrakcsIqpdvpp dysrhythmias (18 sources)Palpitations; Translations: [Palpitations]Onset: 40-45-0770Zqtdzwim Diabetes mellitus without complication (20 sources)Diabetes mellitus without complication; Translations: [Type 2 diabetes mellitus without complications]Onset: 12-17-2020 Resolved: 22-67-1185UzcmpaoPzbljfmgb of lipid metabolism (20 sources)Hyperlipidemia; Translations: [Hyperlipidemia, unspecified]Onset: 12-17-2020 Resolved: 31-94-5639ClzaylnQxlrgbpmev disorders (11 sources)Gastroesophageal reflux disease; Translations: [Gastro-esophageal reflux disease without esophagitis]17-67-2209WgxoxvdVyrmsvrew hypertension (20 sources)Benign essential hypertension; Translations: [Benign essential hypertension]34-54-8425VctkveiWpjtgofbi of unspecified nature or uncertain behavior (11 sources)Neoplasm of uncertain behavior, unspecified; Translations: [Neoplasm of uncertain behavior of skin]EpisodicOther circulatory disease (8 sources)Elevated blood-pressure reading, without diagnosis of hypertension Onset: 10-20-2021 Resolved: 20-29-2736IfmlbbmiTbzml circulatory disease (2 sources)Pulmonary congestion ; Translations: [Other specified symptoms and signs involving the circulatory and respiratory systems]36-85-7607FoywcifrRzclf connective tissue disease (1 source)Pain in right footEpisodicOther ear and sense organ disorders (20 sources)Ear lesion; Translations: [Unspecified disorder of ear, unspecified ear]EpisodicOther gastrointestinal disorders (10 sources)Constipation; Translations: [Constipation, unspecified]06-22-2023 EpisodicOther gastrointestinal disorders (1 source)Constipation, unspecified; Translations: [Constipation, unspecified] 19-00-1483JzryvhwmVscsf lower respiratory disease (11 sources)Cough; Translations: [Cough]89-43-3218RszhgcswZmkqc lower respiratory disease (2 sources)Cough; Translations: [Acute cough]34-14-8095IllynawbNjcho nervous system disorders (20 sources)Neuropathy; Translations: [Polyneuropathy, unspecified]06-21-2023 ChronicOther nervous system disorders (2 sources)Polyneuropathy, unspecified; Translations: [Neuropathy G62.9]Onset: 12-17-2020 Resolved: 80-92-4183VxeowmwDvpdk nervous system disorders (6 sources)Skin sensation disturbance; Translations: [Paresthesia of skin] EpisodicOther nervous system disorders (1 source)Paresthesia of skinEpisodicOther nutritional; endocrine; and metabolic disorders (1 source)Overweight in adulthood with body mass index of 25 or more but less than 30; Translations: [Overweight]EpisodicOther screening for suspected conditions (not mental disorders or infectious disease) (14 sources)Encounter for other screening for malignant neoplasm of breast; Translations: [Encounter for screening for malignant neoplasm of colon]Onset: 06-17-2021 Resolved: 85-44-4889UihpzhxnCsmls skin disorders (1 source)Other seborrheic keratosisEpisodicOther upper respiratory infections (2 sources)Sinusitis; Translations: [Chronic sinusitis, unspecified]10-25-2024 ChronicResidual codes; unclassified (2 sources)Pain, unspecifiedEpisodicResidual codes; unclassified (10 sources)Edema of lower extremity; Translations: [Localized edema]06-22-2023 EpisodicResidual codes; unclassified (1 source)Localized edema; Translations: [Edema]18-88-1591XhnczjqoUfiifbt disorders (20 sources)Hypothyroidism; Translations: [Hypothyroidism, unspecified]Onset: 12-17-2020 Resolved: 71-79-7259Ykcxgqy Past or Other Problems Problem ClassificationProblemDateDocumented DateEpisodic/ChronicDiabetes mellitus without complication (1 source)Hyperglycemia, unspecifiedOnset: 10-05-2021 Resolved: 43-67-0662XjcbtekuMjradcxg; including migraine (1 source)Headache; including migraineOther connective tissue disease (1 source)Pain in right legOnset: 06-17-2021 Resolved: 88-64-8979ZorwdxrlFyoxhw media and related conditions (1 source)Other specified disorders of Eustachian tube, unspecified earOnset: 10-20-2021 Resolved: 75-55-9792QgnkasblGrunmxiuljhr (2 sources)Cough R05.9Onset: 10-20-2021 Resolved: 32-79-7086Igavowafbida (1 source)Never smoked tobacco; Translations: [Never a smoker] Results Test NameValueInterpretationReference RangeFacilityNo Panel InformationOrdered By: Tian Hall on 12-40-5825APC (POC)[facility] OhioFPG ECG *CARDIOLOGY ONLY*on 21-17-3479JKQ ECG *CARDIOLOGY ONLY*[facility] [place] [address] Electrocardiograph Report Signed Patient: Cecilia Colón MR#: [id number] 556 : 1945 Acct:[id number] Age/Sex: 79 / F ADM Date: 06/28/24 Loc: EKGCARD Room: Type: [facility] Attending Dr: Edmond Duarte MD Ordering Provider: Edmond Duarte MD Date of Service: 06/28/2401/12/855 ECG/FPG ECG *CARDIOLOGY ONLY*: R00.2 - Palpitations Copies to: Test Reason : Blood Pressure : */* mmHG Vent. Rate : 84 BPM Atrial Rate : 84 BPM P-R Int : 202 ms QRS Dur : 84 ms QT Int : 360 ms P-R-T Axes : 61 -18 4 degrees QTcB Int : 425 ms Normal sinus rhythm Minimal voltage criteria for LVH, may be normal variant ( R in aVL ) Nonspecific T wave abnormality Abnormal ECG When compared with ECG of 30-Mar-2024 09:25, No significant change was found Confirmed by Edmond Duarte ([id number]) on 06/29/2024 8:56:36 PM Referred By: Electronically Signed By: Edmond Duarte Transcribed By: MUS Signed By Edmond Duarte MD 06/29/242055[facility] Physician GroupXR CHEST 2 VIEWSon 75-50-2715EE CHEST 2 VIEWSXR CHEST 2 VIEWS Reason for exam: Dry cough for six months intermittently, palpitations Technique: PA and lateral view Findings: The heart size is normal. The pulmonary vascularity is unremarkable. There is platelike subsegmental atelectasis at the lateral left lung base, otherwise the lungs are clear. No pleural abnormalitiesare seen. No evidence of mediastinal or hilar enlargement. The osseous structures are intact. No soft tissue abnormalities are seen. IMPRESSION: No acute findings. Dictated on: 06/12/2024 5:48 PM This report has been electronically signed and approved by the interpreting Radiologist.NormalNot AvailableFPG ECG *PCP OFFICE ONLY*on 48-69-0271GNX ECG *PCP OFFICE ONLY*[facility] [place] [address] [place] [address] Electrocardiograph Report Signed Patient: Cecilia Colón MR#: [id number] 556 : 1945 Acct:[id number] Age/Sex: 78 / F ADM Date: 03/30/24 Loc: EKGCAST Room: Type: [facility] Attending Dr: Tian Hall DO Ordering Provider: Tian Hall DO Date of Service: 03/30/2401/12/914 ECG/FPG ECG *PCP OFFICE ONLY*: R00.2 - Palpitations Copies to: Test Reason : Blood Pressure : */* mmHG Vent. Rate : 68 BPM Atrial Rate : 68 BPM P-R Int : 186 ms QRS Dur : 80 ms QT Int : 386 ms P-R-T Axes : 63 0 198 degrees QTcB Int : 410 ms Normal sinus rhythm Minimal voltage criteria for LVH, may be normal variant ( R in aVL ) Abnormal ECG Confirmed by Elaine Mcguire ([id number]) on 03/30/2024 1:07:40 PM Referred By: Electronically Signed By: Elaine Mcguire Transcribed By: MUS Signed By Elaine Mcguire MD [address] [place] [address] Physician MnncuLfL7m HPLC (Bld) [Mass fraction]on 74-36-0451PnH5f (Bld) [Mass fraction]Hemoglobin A1c/Hemoglobin.total in Blood by [facility] screening mammo BI w/CADon 61-24-1000QU screening mammo BI w/[facility] [place] [address] Mammography Report Signed Patient: Cecilia Colón MR#: [id number] 556 : 1945 Acct:[id number] Age/Sex: 78 / F ADM Date: 01/05/24 Loc: ME Room: Type: [facility] Attending Dr: Referral Self Copies to: Tian Hall, SELF,REFERRAL Ordering Provider: SELF,REFERRAL Date of Service: 01/05/24 MM/MM screening mammo BI w/CAD: SCREENING CLINICAL DATA: Screening for malignancy. BILATERAL SCREENING MAMMOGRAMS - FULL FIELD DIGITAL WITH TOMOSYNTHESIS AND CAD Tomosynthesis craniocaudal and mediolateral oblique views of both breasts were obtained using low- dose digital technique. Comparison is made to prior studies from 12/20/2022, 07/04/2018, 06/03/2017, and 04/12/2016. This examination was reviewed with the aid of CAD. There are scattered fibroglandular densities. Benign-appearing calcifications are present bilaterally. Benign-appearing lymph nodes are noted along the chest wall. There are no dominant masses, typically malignant calcifications or architectural distortion. There has been no significant interval change. MM/MM screening mammo BI w/CAD IMPRESSION: NO MAMMOGRAPHIC EVIDENCE OF MALIGNANCY. ROUTINE FOLLOW-UP IS RECOMMENDED IN ONE YEAR. RESULT CODE: 2 Benign Findings(s) DENSITY CODE: 2 (approximately 25-50% glandular) FOLLOW UP: 1YR The false-negative rate of mammography is approximately 10-percent. Management of a palpable abnormality must be based on clinical grounds. Patient was entered into a reminder system with a target due date for the next mammogram. Impression dictated by: Naren Guzman M.D.01/05/2024 12:41 PM Dictation Location: [facility] Transcribed By: REINA 01/05/24 1241 Dictated By: Naren Guzman II, MD 01/05/24 1236 Signed By: 01/05/24 1241NoFormerly [facility] Physician OsccaZ4W with Estimated Average Gluon 05-91-7036Exhjxxx [Mass/Vol]140 mg/dLGolisano [facility] Physician GroupComment on above:Result Comment: PERFORMED BY: [place] [address] PATHOLOGIST [employer]OTANY TE[employer]ER AILSA NIELSEN M.D.Performed By: #### A1C WTH eA, CMP, TSH3, T4F, LIPID #### [place] [id number] USAAlanine aminotransferase [Enzymatic activity/volume] in Serum or PlasmaOrdered By: Tian Hall on 64-49-5402XZO [Catalytic activity/Vol] 12 U/LNormal7-52[facility] OhioComment on above:Performed By: #### A1C WTH eA, CMP, TSH3, T4F, LIPID #### [facility] [address] [place], [place] [id number] USAAlbumin [Mass/volume] in Serum or Plasma by Bromocresol green (BCG) dye binding methoOrdered By: Tian Hall on 47-83-4128Brwktxq BCG dye [Mass/Vol]4.2 g/dL3.5-5.7FOhioHealth Grant Medical CenterAlkaline phosphatase [Enzymatic activity/volume] in Serum or PlasmaOrdered By: Tian Hall on 24-51-4798MQY [Catalytic activity/Vol]65 U/YFhdtdu81-247OavxkqgkhKing'S Daughters Medical Center OhioComment on above:Performed By: #### A1C WTH eA, CMP, TSH3, T4F, LIPID #### [facility] [address] [place], [place] [id number] USAAspartate aminotransferase [Enzymatic activity/volume] in Serum or PlasmaOrdered By: Tian Hall on 91-86-5636CXR [Catalytic activity/Vol] 15 U/EIllkwq20-66OdqjekrmnKing'S Daughters Medical Center OhioComment on above:Performed By: #### A1C WTH eA, CMP, TSH3, T4F, LIPID #### [facility] [address] [place] [address] USABilirubin.total [Mass/volume] in Serum or PlasmaOrdered By: Tian Hall on 14-31-6353Utwptesrw [Mass/Vol]1.0 mg/dLNormal0.3-1.0[facility] OhioComment on above:Performed By: #### A1C WTH eA, CMP, TSH3, T4F, LIPID #### [facility] [address] [place] [address] USACalcium [Mass/volume] in Serum or PlasmaOrdered By: Tian Hall on 38-12-4542Gvoedqx [Mass/Vol]9.2 mg/dLNormal8.6-10.3FOhioHealth Grant Medical CenterComment on above:Performed By: #### A1C WTH eA, CMP, TSH3, T4F, LIPID #### [facility] [address] [place] [id number] USACarbon dioxide, total [Moles/volume] in Serum or Plasma Ordered By: Tian Hall on 89-57-3077FW9 [Moles/Vol]29.7 mmol/VZbspyg06.0-31.0 [facility] OhioComment on above:Performed By: #### A1C WTH eA, CMP, TSH3, T4F, LIPID #### [facility] [address] [place] [address] USAChloride [Moles/volume] in Serum or PlasmaOrdered By: Tian Hall on 34-84-5993Hucmgbqp [Moles/Vol]97 mmol/NIgd24-324HmovhymbmKing'S Daughters Medical Center OhioComment on above:Performed By: #### A1C WTH eA, CMP, TSH3, T4F, LIPID #### [facility] [address] [place] [address] USACholesterol [Mass/volume] in Serum or PlasmaOrdered By: Tian Hall on 90-35-7677Vnbwbqtlbow [Mass/Vol]197 mg/tVWgqbqh200-207ZirmnjcjeKing'S Daughters Medical Center OhioComment on above:Chol less than 200 mg/dl low riskChol 201-239 mg/dl borderline riskChol 240 mg/dl and greater high riskResult Comment: Chol less than 200 mg/dl low risk Chol 201-239 mg/dl borderline risk Chol 240 mg/dl and greater high riskPerformed By: #### A1C WTH eA, CMP, TSH3, T4F, LIPID #### [facility] [address] [place] [address] USACholesterol in LDL Calc [Mass/Vol]Ordered By: Tian Hall on 02-74-6457Hzdbmgbmvxy in LDL [Mass/Vol]114 mg/dLHigh0-100[facility] OhioComment on above:LDL ATP III CLASSIFICATIONLDL less than 100 mg/dL OptimalLDL 100-129 mg/dL Near or above rawtssiQNJ467-501 mg/dL Borderline highLDL 160-189 mg/dL HighLDL greater than 189 mg/dL Very highCholesterol in VLDL Calc [Mass/Vol]Ordered By: Tian Hall on 84-40-2641Sgoilwhawad in VLDL [Mass/Vol]22 mg/dLKing'S Daughters Medical Center OhioComprehensive Metabolic Panel on 16-96-2775Vcclcbu [Mass/Vol]4.2 g/dLNormal3.5-5.7The [facility] Physician GroupComment on above:Performed By: #### A1C WTH eA, CMP, TSH3, T4F, LIPID #### [facility] [address] [place] [address] USAGFR/1.73 sq M.predicted MDRD (S/P/Bld) [Vol rate/Area] mL/min/{1.73_m2}NormalThe [facility] Physician GroupComment on above:Performed By: #### A1C WTH eA, CMP, TSH3, T4F, LIPID #### [facility] [address] [place] [address] USACreatinine [Mass/volume] in Serum or PlasmaOrdered By: Tian Hall on 00-83-7468Lnwungrvcx [Mass/Vol]0.79 mg/dLNormal0.60-1.20[facility] OhioComment on above:Performed By: #### A1C WTH Roxi, MAYITO, TSH3, T4F, LIPID #### [facility] [address] [place] [address] USAGlucose [Mass/volume] in Serum or PlasmaOrdered By: Tian Hall on 25-25-2910Nqqkojf [Mass/Vol]111 mg/lDIsrx58-700JwjaexsbbKing'S Daughters Medical Center OhioComment on above:ADA recommended reference rangeRandom Glucose Reference Range is dependent on time and content of last meal. Glucose of more than 200 mg/dL in a nonstressed, ambulatory subject supports the diagnosisof Diabetes Mellitus.Result Comment: Random Glucose Reference Range is dependent on time and content of last meal. Glucose of more than 200 mg/dL in a nonstressed, ambulatory subject supports the diagnosis of Diabetes Mellitus. ADA recommended reference rangePerformed By: #### A1C WTH Roxi, MAYITO, TSH3, T4F, LIPID #### [facility] [address] [place] [address] USAGlucose mean value [Mass/volume] in Blood Estimated from glycated hemoglobinOrdered By: Tian Hall on 99-06-1932Ccxgmty glucose Estimated from glycated hemoglobin (Bld) [Mass/Vol]140 mg/dLKing'S Daughters Medical Center OhioHemoglobin A1c percentageOrdered By: Tian Hall on 84-93-0148OqZ7b (Bld) [Mass fraction]6.5 %High4.3-5.6FOhioHealth Grant Medical CenterComment on above:Increased risk for diabetes: 5.7 - 6.4diabetes: >6.4glycemic control for adults with diabetes: <7.0Result Comment: Increased risk for diabetes: 5.7 - 6.4 diabetes: >6.4 glycemic control for adults with diabetes: <7.0Performed By: #### A1C WTH eA, CMP, TSH3, T4F, LIPID #### [facility] [address] [place] [address] USALipid Panelon 71-54-7266BFI Cholesterol,Zrzksjcqkd346 mg/dLHigh0-100The [facility] Physician GroupComment on above:Result Comment: LDL ATP III CLASSIFICATION LDL less than 100 mg/dL Optimal LDL 100-129 mg/dL Near or above optimal LDL 130-159 mg/dL Borderline high LDL 160-189 mg/dL High LDL greater than 189 mg/dL Very highPerformed By: #### A1C WTH eA, CMP, TSH3, T4F, LIPID #### [facility] [address] [place] [address] USATriglyceride w/Syzszm757 mg/dLNormal0-149[facility] Physician GroupComment on above:Result Comment: TRIG ATP III CLASSIFICATION TRIG less than 150 mg/dL Normal TRIG 150-199 mg/dL Borderline high TRIG 200-500 mg/dL High TRIG greater than 500 mg/dL Very high Standard traceable to the Center for Disease Conrtrol and Prevention (CDC) test method.Performed By: #### A1C WTH eA, CMP, TSH3, T4F, LIPID #### [facility] [address] [place] [address] USAVLDL YGGAMTAEIWK41 mg/dLNoFormerly [facility] Physician GroupComment on above:Performed By: #### A1C WTH eA, CMP, TSH3, T4F, LIPID #### [facility] [address] [place] [address] USANo Panel InformationOrdered By: Tian Hall on 12-22-2023 Estimated GFR (CKD-EPI)> 60.0 mL/MinKing'S Daughters Medical Center OhioPharmacy Creatinine Clearance (ChemN/[facility] HospitalPotassium [Moles/volume] in Serum or PlasmaOrdered By: Tian Hall on 03-40-2319Egirhcrin [Moles/Vol]4.1 mmol/LNormal3.5-5.1FOhioHealth Grant Medical CenterComment on above:Performed By: #### A1C WTH eA, CMP, TSH3, T4F, LIPID #### [facility] [address] [place] [address] USAProtein [Mass/volume] in Serum or PlasmaOrdered By: Tian Hall on 72-95-7138Vchtezg [Mass/Vol]6.6 g/dLNormal6.4-8.9[facility] OhioComment on above:Performed By: #### A1C WTH eA, CMP, TSH3, T4F, LIPID #### [facility] [address] [place] [id number] USASerum globulin measurement by calculation (mass/volume) Ordered By: Tian Hall on 54-18-6617Fifaisgp (S) [Mass/Vol]2.4 g/dLNoRiverview Health InstituteComment on above:Performed By: #### A1C WTH eA, CMP, TSH3, T4F, LIPID #### [facility] [address] [place] [id number] USASerum or plasma albumin/globulin mass ratioOrdered By: Tian Hall on 08-71-3898Kdjuzgp/Globulin [Mass ratio]1.8 {ratio}WVUMedicine Barnesville HospitalComment on above:Performed By: #### A1C WTH eA, CMP, TSH3, T4F, LIPID #### [facility] [address] [place] [address] USASerum or plasma anion gap determinationOrdered By: Tian Hall on 47-36-6440Crzvh gap [Moles/Vol]10.4 mmol/LNormal6.0-15.0[facility] OhioComment on above:Performed By: #### A1C WTH eA, CMP, TSH3, T4F, LIPID #### [facility] [address] [place] [id number] USASerum or plasma high density lipoprotein (HDL) cholesterol measurementOrdered By: Tian Hall on 29-90-8328Gxidoosmuqu in HDL [Mass/Vol]60 mg/lLQufoxt73-25Fdigqeur[address] [place], [place] [address]Comment on above:HDL CHOL ATP- III CLASSIFICATION Cardiovascular RiskHDL > or equal to 60 mg/dL LOWHDL < 40 mg/dL HIGHResult Comment: HDL CHOL ATP-III CLASSIFICATION Cardiovascular Risk HDL > or equal to 60 mg/dL LOW HDL < 40 mg/dL HIGHPerformed By: #### A1C WTH eA, CMP, TSH3, T4F, LIPID #### [facility] [address] [place] [id number] USASerum or plasma total cholesterol/high density lipoprotein (HDL) cholesterol mass ratOrdered By: Tian Hall on 12-22-2023 Cholesterol.total/Cholesterol in HDL [Mass ratio]3.3 {ratio}Normal<5.0[facility] OhioComment on above:Performed By: #### A1C WTH eA, CMP, TSH3, T4F, LIPID #### [facility] [address] [place] [id number] USASodium [Moles/volume] in Serum or PlasmaOrdered By: Tian Hall on 38-68-9120Cpxbba [Moles/Vol]133 mmol/QKfb917-412ApqgdychgKing'S Daughters Medical Center OhioComment on above:Performed By: #### A1C WTH eA, CMP, TSH3, T4F, LIPID #### [facility] [address] [place] [address] USAThyrotropin [Units/volume] in Serum or PlasmaOrdered By: Tian Hall on 23-91-7728FKG Qn4.99 m[IU]/LNormal0.45-5.33[facility] OhioComment on above:Result Comment: PERFORMED BY: [place] [address] PATHOLOGIST [employer] ALISA NIELSEN M.D.Performed By: #### A1C WT eA, CMP, TSH3, T4F, LIPID #### [facility] [address] [place] [id number] USAThyroxine (T4) free [Mass/volume] in Serum or Plasma Ordered By: Tian Hall on 68-62-2138Owxd T4 [Mass/Vol]1.21 ng/dLHigh0.61-1.12 [facility] OhioComment on above:Performed By: #### A1C WTH eA, CMP, TSH3, T4F, LIPID #### [facility] [address] [place] [address] USATriglyceride [Mass/volume] in Serum or PlasmaOrdered By: Tian Hall on 55-45-8449Bgtmkfivwncj [Mass/Vol]114 mg/dL0-149[facility] OhioComment on above:TRIG ATP III CLASSIFICATIONTRIG less than 150 mg/dL NormalTRIG 150-199 mg/dL Borderline highTRIG 200-500 mg/dL High TRIG greater than 500 mg/dL Very highStandard traceable to the Center for Disease Co nrtrol and Prevention (CDC) test method.Urea nitrogen [Mass/volume] in Serum or PlasmaOrdered By: Tian Hall on 42-12-4709Xuey nitrogen [Mass/Vol]10 mg/dLNormal 10-12[facility] OhioComment on above:Performed By: #### A1C WTH eA, CMP, TSH3, T4F, LIPID #### [facility] [address] [place] [id number] USAOffice Visit (Cardiology)on 04-66-3746Mktcto-up visit Diagnoses/Problems Assessed Essential hypertension, benign (401.1) (I10) Hyperlipidemia (272.4) (E78.5) Diabetes mellitus with no complication (250.00) (E11.9) Overweight with body mass index (BMI) of 25 to 25.9 in adult (278.02,V85.21) (E66.3,Z68.25) Never a smoker Abnormal EKG (794.31) (R94.31) Orders Abnormal EKG IO EKG Electrocardiogram- 12 Lead; Status:Complete; Done: [id number] Essential hypertension, benign Start: hydroCHLOROthiazide 12.5 MG Oral Capsule; TAKE 1 CAPSULE ONCE DAILY Overweight with body mass index (BMI) of 25 to 25.9 in adult Healthy Weight Tips; Status:Complete - Retrospective Authorization; Done: [id number] Some eating tips that can help you lose weight.; Status:Complete - Retrospective Authorization; Done: [id number] SocHx: Never a smoker Tobacco Use Screening; Status:Complete; Done: [id number] Patient Instructions Please bring all medicines, vitamins, and herbal supplements with you when you come to the office. Prescriptions will not be filled unless you are compliant with your follow up appointments or have a follow up appointment scheduled as per instruction of your physician. Refills should be requested at the time of your visit. START hydrochlorothiazide 12.5 once daily. Follow-up as needed only Chief Complaint CECILIA COLÓN is being seen for a consultation for an abnormal ECG and palpitations. History of Present Illness Patient is seen in consultation at the request of her family physician for an abnormal EKG. She is an individual who saw him for routine visit. She mention palpitation and an EKG was performed demonstrating sinus rhythm with some nonspecific ST-T wave changes She has a history of hypertension and it sounds, historically, I because not been well controlled. She does claim to have good diabetes management and is also on statin therapy and I suspect that herdiabetes and hyperlipidemia are well controlled. She is a never smoker. She is aerobically very active. She does a wide variety of activities around the home and actually today drove here by herself,walked in from the parking lot, and went up the stairs (as opposed to taking the elevator). Despite all these activities she has no anginal symptomatology. I cannot elicit any syncope near syncope or other significant arrhythmia symptoms. She has no orthopnea PND or dyspnea with exertion per se. Her examination today is unrevealing. EKG today is mildly abnormal but these abnormalities could beon the basis of LVH, in turn, due to her hypertension. In light of the absence of symptomatology and good risk factor management and overall what I believed to be a low probability of significant flow-limiting coronary disease I suggest clinical observation. The patient was educated regarding symptoms to watch for and encouraged to seek care if such symptoms arise or occur but otherwise we will see her, at her request, as needed. Surgical History Problems History of Colonoscopy History of Partial hysterectomy History of Skin biopsy left ear Current Meds Medication NameInstruction Jardiance 10 MG Oral TabletTAKE 1 TABLET BY MOUTH ONCE DAILY Levothyroxine Sodium 50 MCG Oral CapsuleTAKE 1 CAPSULE BY MOUTH EVERY MORNING BEFORE BREAKFAST ON EMPTY STOMACH Lisinopril 20 MG Oral TabletTAKE 1 TABLET DAILY. metFORMIN HCl - 500 MG Oral TabletTake 1 tablet twice daily Simvastatin 20 MG Oral TabletTAKE 1 TABLET AT BEDTIME. Allergies Medication No Known Drug Allergies Recorded By: Sherri Dooley; 12/13/2022 11:44:02 AM Family History Mother Family history of cardiac disorder (V17.49) (Z82.49) History of PTCA Father Family history of cardiac disorder (V17.49) (Z82.49) History of PTCA Sister Family history of cardiac disorder (V17.49) (Z82.49) Family history of malignant neoplasm (V16.9) (Z80.9) History of PTCA Brother Family history of cardiac disorder (V17.49) (Z82.49) Family history of malignant neoplasm (V16.9) (Z80.9) History of PTCA Social History Problems Daily caffeine consumption Never a smoker No alcohol use No illicit drug use Review of Systems Constitutional: not feeling tired. Eyes: no eyesight problems. ENT: no hearing loss and no nosebleeds. Cardiovascular: no intermittent leg claudication and as noted in HPI. Respiratory: no chronic cough and no shortness of breath. Gastrointestinal: no change in bowel habits and no blood in stools. Genitourinary: no urinary frequency. Skin: no skin rashes. Neurological: no seizures and no frequent falls. Psychiatric: no depression and not suicidal. All other systems have been reviewed and are negative for complaint. Vitals Vital Signs Recorded: [id number] 11:49AMRecorded: 74Wqv4010 11:48AM Irjronni872, RUE, Hvdnisc296, LUE, Sitting Zqepyjvmt38, RUE, Kvoxqhh85, LUE, Sitting Heart Rate72, Apical Height5 ft 4 in Rcavrw652 lb BMI Auntrqaagr64.4 kg/m2 BSA Calculated1.72 Tobacco Useb) No PHQ-2 #1. Ov (more content not included)...NormalUH TouchworksTobacco Screening. on 39-78-8740Itovg depression screening assessmentNoUniversal Health Services [place] Toxicology 250 DO Work Phone: Fall risk assessmenta) No falls within the last year [facility] [employer] Educational TechnologyChi Oakes HospitalShawn 250 DO Work Phone: Tobacco use status CPHSb) [facility] [employer] 250 DO Work Phone: Alanine aminotransferase [Enzymatic activity/volume] in Serum or PlasmaOrdered By: Tian Hall on 23-26-9732MVD [Catalytic activity/Vol]16 U/L7-52[facility] OhioAlbumin [Mass/volume] in Serum or Plasma by Bromocresol green (BCG) dye binding methoOrdered By: Tian Hall on 48-02-3713Zuhgdkw BCG dye [Mass/Vol]4.1 g/dL3.5-5.7FOhioHealth Grant Medical CenterAlkaline phosphatase [Enzymatic activity/volume] in Serum or PlasmaOrdered By: Tian Hall on 23-65-3098NVS [Catalytic activity/Vol]55 U/L 34-104[facility] OhioAspartate aminotransferase [Enzymatic activity/volume] in Serum or PlasmaOrdered By: Tian Hall on 73-35-5484JQU [Catalytic activity/Vol]19 U/Y83-11PygtkighoKing'S Daughters Medical Center [place] Bilirubin.total [Mass/volume] in Serum or PlasmaOrdered By: Tian Hall on 86-72-4767Nhdesnxxa [Mass/Vol]1.0 mg/dL0.3-1.0[facility] [place] Calcium [Mass/volume] in Serum or PlasmaOrdered By: Tian Hall on 11-24-2022 Calcium [Mass/Vol]9.2 mg/dL8.6-10.3FOhioHealth Grant Medical CenterCarbon dioxide, total [Moles/volume] in Serum or PlasmaOrdered By: Tian Hall on 41-01-9783WW6 [Moles/Vol]31.3 mmol/L21.0-31.0[facility] [place] Chloride [Moles/volume] in Serum or PlasmaOrdered By: Tian Hall on 11-24-2022 Chloride [Moles/Vol]102 mmol/B36-947GftvgkfpeKing'S Daughters Medical Center OhioCreatinine [Mass/volume] in Serum or PlasmaOrdered By: Tian Hall on 09-41-6654Zvurqrdgob [Mass/Vol]0.71 mg/dL0.60-1.20[facility] OhioGlobulin Calc (S) [Mass/Vol]Ordered By: Tian Hall on 07-14-3136Tpcfaufh (S) [Mass/Vol]2.4 g/dL [facility] OhioGlucose [Mass/volume] in Serum or PlasmaOrdered By: Tian Hall on 65-92-8903Ucbrmob [Mass/Vol]104 mg/rH84-545IjqojnaimKing'S Daughters Medical Center OhioComment on above:ADA recommended reference rangeRandom Glucose Reference Range is dependent on time and content of last meal. Glucose of more than 200 mg/dL in a nonstressed, ambulatory subject supports the diagnosisof Diabetes Mellitus.Glucose mean value [Mass/volume] in Blood Estimated from glycated hemoglobinOrdered By: Tian Hall on 44-90-1703Tcwljhl glucose Estimated from glycated hemoglobin (Bld) [Mass/Vol]131 mg/dLKing'S Daughters Medical Center OhioHemoglobin A1c percentageOrdered By: Tian Hall on 73-69-0980WvY8a (Bld) [Mass fraction]6.2 %4.3-5.6FOhioHealth Grant Medical CenterComment on above: Increased risk for diabetes: 5.7 - 6.4diabetes: >6.4glycemic control for adults with diabetes: <7.0No Panel InformationOrdered By: Tian Hall on 11-24-2022 Estimated GFR (CKD-EPI)> 60.0 mL/MinKing'S Daughters Medical Center OhioPharmacy Creatinine Clearance (ChemN/AFOhioHealth Grant Medical CenterPotassium [Moles/volume] in Serum or PlasmaOrdered By: Tian Hall on 06-81-5224Nefjfprxn [Moles/Vol]4.5 mmol/L3.5-5.1FOhioHealth Grant Medical CenterProtein [Mass/volume] in Serum or PlasmaOrdered By: Tian Hall on 16-66-4196Ltfdlxu [Mass/Vol]6.5 g/dL6.4-8.9[facility] Hospitalerum or plasma albumin/globulin mass ratioOrdered By: Tian Hall on 15-69-5763Cfdlsds/Globulin [Mass ratio]1.7 {ratio}[facility] Hospitalerum or plasma anion gap determinationOrdered By: Tian Hall on 88-14-9300Wfvxx gap [Moles/Vol]10.2 mmol/L6.0-15.0[facility] Hospitalodium [Moles/volume] in Serum or PlasmaOrdered By: Tian Hall on 77-24-2423Bcgwjk [Moles/Vol]139 mmol/R998-259 [facility] OhioThyrotropin [Units/volume] in Serum or Plasma Ordered By: Tian Hall on 06-16-1476WQN Qn6.76 m[IU]/L0.45-5.33[facility] OhioThyroxine (T4) free [Mass/volume] in Serum or Plasma Ordered By: Tian Hall on 96-32-1698Brhb T4 [Mass/Vol]0.95 ng/dL0.61-1.12 [facility] OhioUrea nitrogen [Mass/volume] in Serum or Plasma Ordered By: Tian Hall on 93-85-4670Zyxf nitrogen [Mass/Vol]8 mg/dL7-25[facility] OhioAlbumin [Mass/volume] in Serum or PlasmaOrdered By: Tian Hall on 45-39-6796Zvicjyo [Mass/Vol]3.7 g/dL3.2-5.5FOhioHealth Grant Medical CenterAlkaline phosphatase [Enzymatic activity/volume] in Serum or PlasmaOrdered By: Tian Hall on 81-27-6229PLM [Catalytic activity/Vol]61 U/L 32-92[facility] OhioAspartate aminotransferase [Enzymatic activity/volume] in Serum or PlasmaOrdered By: Tian Hall on 70-90-0849GFH [Catalytic activity/Vol]15 U/G92-92KrhcbshyyKing'S Daughters Medical Center OhioBasophils Auto (Bld) [#/Vol]Ordered By: Tian Hall on 78-37-9795Uystkuqsp (Bld) [#/Vol]0.1 10*3/uL0.0-0.2FOhioHealth Grant Medical CenterBasophils/100 WBC Auto (Bld) Ordered By: Tian Hall on 65-06-8443Szepernfh/100 WBC (Bld)0.6 %.[facility] OhioBilirubin.total [Mass/volume] in Serum or PlasmaOrdered By: Tian Hall on 75-99-1710Wllmrmrlu [Mass/Vol]1.0 mg/dL0.3-1.2FOhioHealth Grant Medical CenterCalcium [Mass/volume] in Serum or PlasmaOrdered By: Tian Hall on 73-54-7933Oisrttr [Mass/Vol]8.9 mg/dL8.2-10.2FOhioHealth Grant Medical CenterCarbon dioxide, total [Moles/volume] in Serum or PlasmaOrdered By: Tian Hall on 63-83-8470QJ1 [Moles/Vol]30.1 mmol/L22.0-30.0[facility] OhioChloride [Moles/volume] in Serum or PlasmaOrdered By: Tian Hall on 51-54-6867Npojjnqw [Moles/Vol]98 mmol/R21-231IuyefqlpnKing'S Daughters Medical Center Ohio Cholesterol [Mass/volume] in Serum or PlasmaOrdered By: Tian Hall on 05-17-2022 Cholesterol [Mass/Vol]213 mg/bD594-101GpcyibadzKing'S Daughters Medical Center OhioComment on above:Chol less than 200 mg/dl low riskChol 201-239 mg/dl borderline riskChol 240 mg/dl and greater high riskCholesterol in LDL Calc [Mass/Vol]Ordered By: Tian Hall on 41-54-3506Bgeksamjpvm in LDL [Mass/Vol]118 mg/dL0-100[facility] OhioComment on above:LDL ATP III CLASSIFICATIONLDL less than 100 mg/dL OptimalLDL 100-129 mg/dL Near or above wwygybtFXA037-774 mg/dL Borderline highLDL 160-189 mg/dL HighLDL greater than 189 mg/dL Very high Cholesterol in VLDL Calc [Mass/Vol]Ordered By: Tian Hall on 05-17-2022 Cholesterol in VLDL [Mass/Vol]38 mg/dLKing'S Daughters Medical Center Ohio Creatinine and Glomerular filtration rate.predicted panel (S/P/Bld)Ordered By: Tian Hall on 98-33-2887Protrnavnx [Mass/Vol]0.70 mg/dL0.44-1.03[facility] OhioEosinophils Auto (Bld) [#/Vol]Ordered By: Tian Hall on 91-76-6168Lboabcykhtt (Bld) [#/Vol]0.3 10*3/uL0.0-0.45[facility] OhioEosinophils/100 WBC Auto (Bld)Ordered By: Tian Hall on 05-17-2022 Eosinophils/100 WBC (Bld)3.2 %.[facility] OhioErythrocyte distribution width Auto (RBC) [Ratio]Ordered By: Tian Hall on 05-17-2022 Erythrocyte distribution width (RBC) [Ratio]13.4 %11.9-15.3FOhioHealth Grant Medical CenterEstimated glomerular filtration rate (GFR) non- Ordered By: Tian Hall on 06-15-1706KTN/1.73 sq M.predicted among non-blacks MDRD (S/P/Bld) [Vol rate/Area]> 60 mL/MinKing'S Daughters Medical Center Ohio Globulin Calc (S) [Mass/Vol]Ordered By: Tian Hall on 92-63-4441Pfaitqee (S) [Mass/Vol]2.2 g/dLKing'S Daughters Medical Center OhioGlucose [Mass/volume] in Serum or PlasmaOrdered By: Tian Hall on 17-11-5522Gyuyvoz [Mass/Vol]101 mg/dL 70-100[facility] OhioComment on above:ADA recommended reference rangeRandom Glucose Reference Range is dependent on time and content of last meal. Glucose of more than 200 mg/dL in a nonstressed, ambulatory subject supports the diagnosisof Diabetes Mellitus.Glucose mean value [Mass/volume] in Blood Estimated from glycated hemoglobinOrdered By: Tian Hall on 86-93-3135Sjuxtlb glucose Estimated from glycated hemoglobin (Bld) [Mass/Vol] 143 mg/dLKing'S Daughters Medical Center OhioHematocrit Auto (Bld) [Volume fraction]Ordered By: Tian Hall on 53-35-6525Kshnmhjqoz (Bld) [Volume fraction] 38.7 %34.0-46.4FOhioHealth Grant Medical CenterHemoglobin A1c percentageOrdered By: Tian Hall on 12-64-6511SoR3y (Bld) [Mass fraction]6.6 %4.3-5.6FOhioHealth Grant Medical CenterComment on above:Increased risk for diabetes: 5.7 - 6.4diabetes: >6.4glycemic control for adults with diabetes: <7.0Hemoglobin [Mass/volume] in BloodOrdered By: Tian Hall on 36-60-9456Vttilazbir (Bld) [Mass/Vol]12.9 g/dL11.8-15.4FOhioHealth Grant Medical CenterLeukocytes [#/volume] corrected for nucleated erythrocytes in Blood by Automated coun Ordered By: Tian Hall on 37-60-2306PUX corrected for nucl RBC Auto (Bld) [#/Vol]9.7 10*3/uL3.8-11.6FOhioHealth Grant Medical CenterLymphocytes Auto (Bld) [#/Vol]Ordered By: Tian Hall on 42-98-6840Gzggtdyhrgm (Bld) [#/Vol]2.7 10*3/uL1.00-4.8[facility] OhioLymphocytes/100 WBC Auto (Bld) Ordered By: Tian Hall on 50-04-3685Ibnikwyywpi/100 WBC (Bld)27.7 %.[facility] Auto (RBC) [Entitic mass]Ordered By: Tian Hall on 26-08-7315BVD (RBC) [Entitic mass]29.8 pg24.7-34.3FOhioHealth Grant Medical CenterMCHC Auto (RBC) [Mass/Vol]Ordered By: Tian Hall on 52-30-6176FFWP (RBC) [Mass/Vol]33.3 g/dL32.0-35.0[facility] OhioMCV Auto (RBC) [Entitic vol]Ordered By: Tian Hall on 64-30-8661OTP (RBC) [Entitic vol]89.5 fL 80-100[facility] OhioMonocytes Auto (Bld) [#/Vol]Ordered By: Tian Hall on 87-76-6497Aiwxwpszp (Bld) [#/Vol]0.7 10*3/uL0.0-0.8[facility] OhioMonocytes/100 WBC Auto (Bld)Ordered By: Tian Hall on 08-80-0349Spezuicwm/100 WBC (Bld)7.7 %.[facility] [place] Neutrophils Auto (Bld) [#/Vol]Ordered By: Tian Hall on 02-44-7022Pcgxuwfjoat (Bld) [#/Vol]5.9 10*3/uL1.8-7.7FOhioHealth Grant Medical CenterNeutrophils/100 WBC Auto (Bld)Ordered By: Tian Hall on 50-47-0958Whygbkchzna/100 WBC (Bld)60.8 %.[facility] OhioNo Panel InformationOrdered By: Tian Hall on 23-08-0007Aykvjaodi GFR ()> 60 mL/MinKing'S Daughters Medical Center OhioComment on above:GFR estimated reference range: According to KDOQI guidelines, <60 ml/min/1.73m2 is sufficient todiagnose a patient with chronic kidney disease.Pharmacy Creatinine Clearance (ChemN/AFOhioHealth Grant Medical CenterNucleated erythrocytes [Presence] in Blood by Automated countOrdered By: Tian Hall on 95-71-4475Wfqftjhkm RBC Auto Ql (Bld)0.0 /100{WBC}0-0.5FOhioHealth Grant Medical CenterPlatelet mean volume Auto (Bld) [Entitic vol]Ordered By: Tian Hall on 89-18-2906Etypyoil mean volume (Bld) [Entitic vol]6.9 fL6.3-10.7 [facility] OhioPlatelets Auto (Bld) [#/Vol]Ordered By: Tian Hall on 53-12-7775Cpowvmqlv (Bld) [#/Vol]359 10*3/iR384-788ZfoolmvpyKing'S Daughters Medical Center OhioPotassium [Moles/volume] in Serum or PlasmaOrdered By: Tian Hall on 52-26-5193Zycltbbvf [Moles/Vol]4.2 mmol/L3.5-5.1FOhioHealth Grant Medical CenterProtein [Mass/volume] in Serum or PlasmaOrdered By: Tian Hall on 54-05-9707Eajeklt [Mass/Vol]5.9 g/dL6.1-7.9[facility] OhioRBC Auto (Bld) [#/Vol]Ordered By: Tian Hall on 38-11-3900FNN (Bld) [#/Vol]4.32 10*6/uL3.60-5.00[facility] Hospitalerum or plasma alanine aminotransferase measurement without P-5'-P (enzymatic activiOrdered By: Tian Hall on 78-15-2630APD No additional P-5'-P [Catalytic activity/Vol]19 U/L10-60 [facility] Hospitalerum or plasma albumin/globulin mass ratio Ordered By: Tian Hall on 35-20-4632Bhheggi/Globulin [Mass ratio]1.7 {ratio} [facility] Hospitalerum or plasma anion gap determinationOrdered By: Tian Hall on 07-33-5693Iergz gap [Moles/Vol]10.1 mmol/L6.0-15.0[facility] Hospitalerum or plasma high density lipoprotein (HDL) cholesterol measurementOrdered By: Tian Hall on 34-65-7258Jrrlauibowx in HDL [Mass/Vol]56 mg/nU18-11XdsvayplvKing'S Daughters Medical Center OhioComment on above:HDL CHOL ATP-III CLASSIFICATION Cardiovascular RiskHDL > or equal to 60 mg/dL LOWHDL < 40 mg/dL HIGHSerum or plasma total cholesterol/high density lipoprotein (HDL) cholesterol mass ratOrdered By: Tian Hall on 05-17-2022 Cholesterol.total/Cholesterol in HDL [Mass ratio]3.8 {ratio}<5.0[facility] Hospitalodium [Moles/volume] in Serum or PlasmaOrdered By: Tian Hall on 87-70-4221Trdpqv [Moles/Vol]134 mmol/X190-555BxyinqcesKing'S Daughters Medical Center OhioTSH DL <= 0.005 mIU/L QnOrdered By: Tian Hall on 33-82-6679FNM Qn5.68 m[IU]/L0.45-5.33[facility] OhioThyroxine (T4) free [Mass/volume] in Serum or PlasmaOrdered By: Tian Hall on 01-31-4274Wsrs T4 [Mass/Vol]1.31 ng/dL0.61-1.12[facility] OhioTriglyceride [Mass/volume] in Serum or PlasmaOrdered By: Tian Hall on 88-51-0344Qozfqhasbtur [Mass/Vol]193 mg/wV09-892VuzeqdudxKing'S Daughters Medical Center OhioComment on above:TRIG ATP III CLASSIFICATIONTRIG less than 150 mg/dL NormalTRIG 150-199 mg/dL Borderline highTRIG 200-500 mg/dL High TRIG greater than 500 mg/dL Very highStandard traceable to the Center for Disease Conrtrol and Prevention (CDC) test method.Urea nitrogen [Mass/volume] in Serum or PlasmaOrdered By: Tian Hall on 86-06-8988Xmue nitrogen [Mass/Vol]11 mg/dL9-23[facility] OhioWBC Auto (Bld) [#/Vol]Ordered By: Tian Hall on 58-32-3110ONW (Bld) [#/Vol]9.7 10*3/uL3.8-11.6FOhioHealth Grant Medical CenterCOVID + FLU Quick Testingon 22-18-1236IGXC-CoV-2 (COVID-19) RNA HAN+probe Ql (Unsp spec)Negative [facility] [employer] Other COVID + FLU Quick TestingNegativeKind[facility] Hospital [facility] [employer] Other RSVon 63-48-2712REX Ag IA Ql (Unsp spec)PositiveKindred Hospital Seattle - First Hill [employer] Other COVID Quick Testingon 56-61-3369XxyzaqZffhyhigOgrpx Coast [employer] Other HbA1c (Bld) [Mass fraction]on 23-93-0967P0Y HEMOGLOBIN 6.0NoKaleida Health [employer] Other A1C HEMOGLOBINNoKaleida Health [employer] Other Vital Signs Date TimeVital SignValuePerforming ExwpulfugKbdmhslg32-52-0741 13:50-0400Heart rate78 /minTina Hall DO Work Phone: [facility] [place]08-07-2025 13:29-0400 Body yhhkbh560.02 cmTian Suzan DO Work Phone: [facility] [place]08-07-2025 13:29-0400 Body mass index (BMI) [Ratio]28.1 kg/q1Pylwn Suzan DO Work Phone: [facility] [place]08-07-2025 13:29-0400 Body lxbyusajeff80.4 [degF]Tian Hall DO Work Phone: [facility] [place]08-07-2025 13:29-0400 Body lbxnse95.12 kgJosekenrick Santizochanning DO Work Phone: [facility] [place]08-07-2025 13:29-0400 Diastolic blood glitergx19 mm[Hg]Tian Hall DO Work Phone: [facility] [place]08-07-2025 13:29-0400 Heart opky890 /minTian Hall DO Work Phone: [facility] [place]08-07-2025 13:29-0400 Respiratory rate18 /minTian Santizos DO Work Phone: [facility] [place]08-07-2025 13:29-0400 SaO2% (BldA) [Mass fraction]96 %Tian Santizos DO Work Phone: [facility] [place]08-07-2025 13:29-0400 Systolic blood cjmynkph063 mm[Hg]Tian Santizos DO Work Phone: [phone]05-20-2025 09:09-0400 Body qruvkb845.02 cmTian Hall DO Work Phone: [phone]05-20-2025 09:09-0400 Body mass index (BMI) [Ratio]28.1 kg/m9DeglgTian Santizos DO Work Phone: [phone]05-20-2025 09:09-0400 Body ziwmzk38.12 kgTian Santizos DO Work Phone: [phone])[address]05-20-2025 09:09-0400 Diastolic blood xisvuekr27 mm[Hg]Tian Santizos DO Work Phone: [phone])[address]05-20-2025 09:09-0400 Heart rate74 /minTian Santizos DO Work Phone: [facility] [place]05-20-2025 09:09-0400 Respiratory rate18 /minTian Santizos DO Work Phone: [phone])860-[address] [place], [place] 2567605-20-2025 09:09-0400 SaO2% (BldA) [Mass fraction]98 %Tian Santizos DO Work Phone: [facility] [place]05-20-2025 09:09-0400 Systolic blood lygzvdpu581 mm[Hg]Tian Santizos DO Work Phone: [phone] [place], [place] 2567604-10-2025 09:07-0400 Body oifkuf141.02 cmTian Hall DO Work Phone: [facility] [place]04-10-2025 09:07-0400 Body mass index (BMI) [Ratio]28.1 kg/p2ZrtibTian Hall DO Work Phone: [facility] [place]04-10-2025 09:07-0400 Body xhlnxi60.12 kgTian Hall DO Work Phone: [facility] [place]04-10-2025 09:07-0400 Diastolic blood iyxchorg99 mm[Hg]Tian Hall DO Work Phone: [facility] [place]04-10-2025 09:07-0400 Heart rate79 /Rikki Hall DO Work Phone: [facility] [place]04-10-2025 09:07-0400 Respiratory rate18 /Rikki Hall DO Work Phone: [facility] [place]04-10-2025 09:07-0400 SaO2% (BldA) [Mass fraction]98 %Tian Hall DO Work Phone: [facility] [place]04-10-2025 09:07-0400 Systolic blood csppapha820 mm[Hg]Tian Hall DO Work Phone: [facility] [place]03-17-2025 09:49-0400 Body axxojc257.02 cmKing'S Daughters Medical Center Ohio03-17-2025 09:49-0400Body mass index (BMI) [Ratio]28.5 kg/k0MvsrxsgdqKing'S Daughters Medical Center [place]03-17-2025 09:49-0400Body jgmtyr61.02 kgKing'S Daughters Medical Center [place]03-17-2025 09:49-0400Diastolic blood mm[Hg][facility] [place] 06-04-2024 09:49-0400Heart rate72 /minKing'S Daughters Medical Center [place] 06-04-2024 09:49-7455IwC3% (BldA) [Mass fraction]97 %[facility] [place]03-17-2025 09:49-0400Systolic blood vixqwohu594 mm[Hg][facility] [place]01-10-2025 09:10-0500Body acgoju612.02 cmTian Hall DO Work Phone: [facility] [place]01-10-2025 09:10-0500 Body mass index (BMI) [Ratio]28.1 kg/k0EsaraTian Santizos DO Work Phone: [facility] [place]01-10-2025 09:10-0500 Body .12 kgTian Santizos DO Work Phone: [facility] [place]01-10-2025 09:10-0500 Diastolic blood gnduhsfx13 mm[Hg]Tian Santizos DO Work Phone: [facility] [place]01-10-2025 09:10-0500 Heart rate69 /minTian Santizos DO Work Phone: [facility] [place]01-10-2025 09:10-0500 Respiratory rate16 /minTian Hall DO Work Phone: [facility] [place]01-10-2025 09:10-0500 SaO2% (BldA) [Mass fraction]96 %Tian Hall DO Work Phone: [facility] [place]01-10-2025 09:10-0500 Systolic blood mm[Hg]Tian Santizos DO Work Phone: [facility] [place]04-03-2024 08:47-0400 Body .02 cmKing'S [facility]aughters Medical Center [place]04-03-2024 08:47-0400Body mass index (BMI) [Ratio]26.9 kg/d2JrolqtvaoKing'S Daughters Medical Center [place]04-03-2024 08:47-0400Body .94 kgKing'S Daughters Medical Center [place]04-03-2024 08:47-0400Diastolic blood kpeclsqq14 mm[Hg][facility] [place] 06-22-2023 08:47-0400Heart rate71 /[facility] 06-22-2023 08:47-0400Respiratory rate18 /[facility] 06-22-2023 08:47-4744AfH9% (BldA) [Mass fraction]96 %[facility] [place]04-03-2024 08:47-0400Systolic blood srmlixgt284 mm[Hg][facility] [place]11-02-2023 16:00-0400Body ruzeht557.02 cmTian Hall Other [employer] Other 11-02-2023 16:00-0400Body mass index (BMI) [Ratio] 26.57 kg/d7YkzljTian Hall Other [employer] Other 11-02-2023 16:00-0400Body eyagto68.04 kgTian Hall Other [employer] Other 11-02-2023 16:00-0400Diastolic blood misoifcv36 mm[Hg] Tian Hall Other [employer] Other 11-02-2023 16:00-0400Respiratory rate16 /Rikki Hall Other [employer] Other 11-02-2023 16:00-5150TuH1% (BldA) [Mass fraction]98 % Tian Hall Other [employer] Other 11-02-2023 16:00-0400Systolic blood dgkfapkl965 mm[Hg] Tian Hall Other [employer] Other 09-25-2023 11:49-0400Diastolic blood cgrkuhha72 mm[Hg] Tian Hall Work Phone: [phone]-Ioqiv [facility] [address] DO Work Phone: 1(743) 839-336409-25-2023 11:49-0400Systolic blood oyuqgwpk826 mm[Hg] Tian Hall Work Phone: [phone]-Ihzkd [facility] 250 DO Work Phone: 1(383) 223-746709-25-2023 11:48-0400Body idvifc166.56 cmTian Hall Work Phone: [phone]-Yktto [facility] 250 DO Work Phone: 1(596) 189-931409-25-2023 11:48-0400Body mass index (BMI) [Ratio]25.4 kg/y2QwcsqTian Hall Work Phone: [phone]-XdrsrNorth [facility] DO Work Phone: 1(814) 774-534109-25-2023 11:48-0400Body surface area Derived from formula1.72 v4JzgwfTian Hall Work Phone: [phone]-FomsaNorth [facility] DO Work Phone: 1(890) [phone] 11:48-0400Body .13 kgTian Hall Work Phone: [phone]) [phone]-GhjqvNorth [facility] DO Work Phone: 1(259) 785-581409-25-2023 11:48-0400Diastolic blood mm[Hg] Tian Hall Work Phone: [phone]-Mmpil [facility] [address] DO Work Phone: 1(757) 936-883109-25-2023 11:48-0400Heart rate72 /minTian Hall Work Phone: 1([phone]) [phone]-Tmhdy [facility] 250 DO Work Phone: 1(214) 408-963209-25-2023 11:48-0400Systolic blood qokyjwek190 mm[Hg] Tian Hall Work Phone: 1(642) [phone]-Hipmw [facility] 250 DO Work Phone: 1(239) 841-863209-13-2023 08:45-0400Body moeuuw293.02 cmJosekenrick Suzan Other [employer] Other 09-13-2023 08:45-0400Body mass index (BMI) [Ratio] 26.53 kg/q8CchbrTian Hall Other [employer] Other 09-13-2023 08:45-0400Body qyfsak60.95 kgTian Hall Other [employer] Other 09-13-2023 08:45-0400Diastolic blood amwkwpfq05 mm[Hg] Tian Hall Other [employer] Other 09-13-2023 08:45-0400Respiratory rate16 /minTian Hall Other [employer] Other 09-13-2023 08:45-3818DbJ4% (BldA) [Mass fraction]98 % Tian Hall Other [employer] Other 09-13-2023 08:45-0400Systolic blood ecgqyadc781 mm[Hg] Tian Hall Other [employer] Other 03-13-2023 10:00-0400Body iftipm156.02 cmTian Hall Other [employer] Other 03-13-2023 10:00-0400Body mass index (BMI) [Ratio] 26.04 kg/z1EvpmhTian Hall Other [employer] Other 03-13-2023 10:00-0400Body fynsct11.68 kgTian Hall Other [employer] Other 03-13-2023 10:00-0400Diastolic blood ewqfzkda44 mm[Hg] Tian Santizochanning Other [employer] Other 03-13-2023 10:00-0400Respiratory rate16 /minJosekenrick Santizochanning Other [employer] Other 03-13-2023 10:00-1406HkT3% (BldA) [Mass fraction]99 % Tian Sukhdevchanning Other [employer] Other 03-13-2023 10:00-0400Systolic blood xewaiams459 mm[Hg] Tian Hall Other [employer] Other 11-30-2022 11:30-0500Body holrrp718.02 cmJosekenrick Santizochanning Other [employer] Other 11-30-2022 11:30-0500Body mass index (BMI) [Ratio] 26.21 kg/e3Ewkjk Sukhdevchanning Other [employer] Other 11-30-2022 11:30-0500Body .13 kgJosekenrick Hall Other [employer] Other 11-30-2022 11:30-0500Diastolic blood kxkucpnx51 mm[Hg] Tian Hall Other [employer] Other 11-30-2022 11:30-0500Respiratory rate16 /minTian Hall Other [employer] Other 11-30-2022 11:30-8471FjO1% (BldA) [Mass fraction]99 % Tian Hall Other [employer] Other 11-30-2022 11:30-0500Systolic blood kyvozfkf136 mm[Hg] Tian Hall Other [employer] Other 08-02-2022 15:00-0400Body .02 cmTian Hall Other [employer] Other 08-02-2022 15:00-0400Body mass index (BMI) [Ratio] 26.57 kg/p4UbzugTian Hall Other [employer] Other 08-02-2022 15:00-0400Body jllxthadaee303.4 [degF]Tian Hall Other [employer] Other 08-02-2022 15:00-0400Body skykrq39.04 kgTian Santizochanning Other [employer] Other 08-02-2022 15:00-0400Diastolic blood yezkumbq28 mm[Hg] Tian Hall Other [employer] Other 08-02-2022 15:00-0400Respiratory rate18 /minTian Hall Other [employer] Other 08-02-2022 15:00-3403CxH5% (BldA) [Mass fraction]96 % Tian Hall Other [employer] Other 08-02-2022 15:00-0400Systolic blood qvibaqyv552 mm[Hg] Tian Suzan Other [employer] Other 03-30-2022 10:15-0400Body qjsqib315.02 cmJosekenrick Santizochanning Other [employer] Other 03-30-2022 10:15-0400Body mass index (BMI) [Ratio] 26.21 kg/i3Thvwk Kunchanning Other [employer] Other 03-30-2022 10:15-0400Body whyxgy02.13 kgJosekenrick Hall Other [employer] Other 03-30-2022 10:15-0400Diastolic blood zaltxvkt94 mm[Hg] Tian Hall Other [employer] Other 03-30-2022 10:15-0400Respiratory rate16 /minTian Hall Other [employer] Other 03-30-2022 10:15-2223OsO0% (BldA) [Mass fraction]96 % Tian Hall Other [employer] Other 03-30-2022 10:15-0400Systolic blood ezpihtqh001 mm[Hg] Tian Hall Other [employer] Other 09-29-2021 09:30-0400Body .02 cmTian Sukhdevchanning Other [employer] Other 09-29-2021 09:30-0400Body mass index (BMI) [Ratio] 26.21 kg/m0OjhteTian Hall Other [employer] Other 09-29-2021 09:30-0400Body .13 kgJosekenrick Suzan Other [employer] Other 09-29-2021 09:30-0400Diastolic blood lnoqjwio95 mm[Hg] Tian Hall Other [employer] Other 09-29-2021 09:30-0400Respiratory rate16 /minTian Hall Other [employer] Other 09-29-2021 09:30-7674UpN5% (BldA) [Mass fraction]97 % Tian Hall Other [employer] Other 09-29-2021 09:30-0400Systolic blood xkmaeprn436 mm[Hg] Tian Hall Other [employer] Other Encounters Encounter DateEncounter TypeCare ProviderFacilityStart: 10-29-2024 End: 19-61-0983tavjztuwisKfvxc Kuns DO Work Phone: [facility] Work Phone: Start: 10-29-2024 End: 41-90-4110Rsgsndc encounter procedureTian Hall P DO-[facility] Work Phone: Start: 10-25-2024 End: 09-56-2760flejtegkrsPegbw Kuns DO Work Phone: [facility] Work Phone: Start: 10-25-2024 End: 34-57-7796Jewhezk encounter procedurePayuri Chapman [employer]-[facility] Work Phone: Start: 08-07-2024 End: 83-73-4518Cicdkfx encounter procedureEdmond Duarte MD-[facility] Work Phone: Start: 06-28-2024 End: 72-02-2750bgmpmbznciQgkhw Kuns DO Work Phone: [facility] Work Phone: Start: 06-28-2024 End: 47-07-9594Hzurlad encounter procedureBrykenrick Hall DO Work Phone: [facility] Work Phone: Start: 06-12-2024 End: 87-93-2779nkcytksyvrPGMGK P KUNSNot AvailableStart: 06-04-2024 End: 14-94-7435rzodqrmquhPbrveazcvHolzer Health System Work Phone: Start: 06-04-2024 End: 67-65-0417Jghkalo encounter procedureElpidiopage [facility] Work Phone: Start: 03-30-2024 End: 83-24-4832yznepawhflKtqyo KunsFacility:[facility] [place] Start: 71-06-3169Nth-patient / Non-visitBrykenrick Hall DO Work Phone: [facility] Work Phone: Start: 23-35-6238Sbstcly encounter procedureBrykenrick Hall DO Work Phone: [facility] [place]Start: 03-30-2024 End: 87-19-3819bizzhczpffHedui Sukhdevs DO Work Phone: [facility] Work Phone: Start: 03-30-2024 End: 45-60-8455Lyrusht encounter procedureBrykenrick Santizos DO Work Phone: [facility] Work Phone: Start: 01-05-2024 End: 91-80-3419Fmsmefn encounter procedureDO Tian Hall Work Phone: [facility] Work Phone: Start: 01-05-2024 End: 61-55-0913qyiuennhkbRX Tian Hall Work Phone: [facility] Work Phone: Start: 12-22-2023 End: 37-70-2498Mobcbht encounter Aliya Hall Work Phone: [facility] [place] Work Phone: Start: 12-22-2023 End: 26-05-7631tmnzhpgoxcEP Bryan Kuns Work Phone: [facility] Work Phone: Start: 06-22-2023 End: 39-49-0494vmanfalvxdOefogdbdrHolzer Health System Work Phone: Start: 06-22-2023 End: 24-93-3690Ipqwegy encounter [facility] [place] Work Phone: Start: 03-29-2023 End: 10-40-2206evxaqpbtrlPvrgy Kuns Other [employer] Other Start: 52-66-2783Cuthbujiv encounterTian HallFPG [facility] [place]aliaStart: 01-21-2023 End: 44-60-4764mgrcxvhvipXD Bryan Kuns Work Phone: [facility] Work Phone: Start: 01-21-2023 End: 92-94-0324Kndymuwh ReferredDO Tian Hall Work Phone: [facility] [place] Work Phone: Start: 01-20-2023 End: 34-67-7284vncpjtrbdmBrcqw Kuns Other [employer] Other Start: 56-66-3840Aexfkh outpatient visit 15 minutes Tian [facility] [place]Start: 01-03-2023 End: 70-10-1971wbzmirwcqhKyucv Kuns Other [employer]: [employer] Other Start: 11-36-0421Waqegrmud encounterTian [facility] CastaliaStart: 12-30-2022 End: 16-40-9283kunkztnczbPtuwt Kuns Other [facility] [employer] Other Start: 99-89-1572Jepeqcwtj encounterTian SantizoDianneTammy Family [facility] [place]Start: 12-20-2022 End: 37-80-7870pyuwxccqddTC Bryan Kuns Work Phone: [facility] Work Phone: Start: 12-20-2022 End: 21-05-4967Rqrgcfs encounter procedureDO Tian Hall Work Phone: [facility] Work Phone: Start: 46-43-6006pnfsyjfwqdEdulatoryDr. Tian Hall Facility:[id number]: 11-25-0369Pvkwvc consultation new/estab patient 60 minTian Hall Work Phone: [phone]-Fsnwu [facility] DO Work Phone: Start: 12-01-2022 End: 56-31-1676njmvuwzzozNciav Kuns Other [employer] Other Start: 30-68-9325Axtvdow encounter procedureTian Hall [facility] [place]Start: 11-24-2022 End: 13-16-2945riwyutobdgTO Tian Hall Work Phone: [facility] Work Phone: Start: 11-24-2022 End: 03-19-2616Xlskuqy encounter procedureDO Tian Hall Work Phone: [facility] [place] Work Phone: Start: 09-28-2022 End: 75-94-7842btptqbymxkQwzrz Kuns Other [employer] Other Start: 37-34-4042Anwsfhwzi encounterJosekenrick HallFPG [facility] [place]aliaStart: 09-01-2022 End: 15-13-6820elfljzwjrwDxdll Kuns Other [employer] Other Start: 15-54-8761Kanovlnlw encounterBrykenrick HallFPG [facility] [place]aliaStart: 07-01-2022 End: 76-03-4150brgraezdtbYsczq Kuns Other [employer] Other Start: 63-06-8267Albmlciei encounterBrykenrick HallFPG [facility] [place]aliaStart: 05-31-2022 End: 06-95-3828hbdtefhoshFixpc Kuns Other [employer] Other Start: 16-34-3487Rbkqoa outpatient visit 25 minutes Tian SukhdevchanningG Family [facility] [place]Start: 05-17-2022 End: 36-25-3624pjijjzgiboES Bryan Kuns Work Phone: [facility] Work Phone: Start: 05-17-2022 End: 63-42-2358Ktdczxx encounter procedureDO Itankenrick Hall Work Phone: [facility] [place] Work Phone: Start: 05-10-2022 End: 01-70-7800bpuliifqelOcbui Kuns Other [employer] Other Start: 23-60-6872Wmgyvnocc encounterBrykenrick Villafuerte [facility] [place]Start: 05-04-2022 End: 17-09-3297etgosssrtsLrwnj Kuns Other [employer] Other Start: 22-44-0742Qtuecwb evaluation of patient and reportTian SuzanFPTammy Family [facility] [place]aliaStart: 02-22-2022 End: 13-69-5926mnjvevlukcMempn Kuns Other [employer] Other Start: 68-05-4518Pxgbqplqt encounterJosekenrick [facility]af[facility] [place]Start: 02-17-2022 End: 05-08-5112npbzcrxvbeRviml Kuns Other [employer] Other Start: 09-81-3599Rgzily outpatient visit 25 minutes Tian SantizoJose [facility] [place]Start: 12-21-2021 End: 22-80-3216aikrzwngaqTbhsf Kuns Other [employer] Other Start: 34-82-6334Cvpsdgzmp encounterBrykenrick Villafuerte [facility] [place]Start: 10-20-2021 End: 18-25-3563jdphtsbubwXrpif Kuns Other [employer] Other Start: 82-12-7696Iznhjz outpatient visit 25 minutes Tian SantizosFPG [facility] [place]Start: 59-69-6869Pcfhflifa encounterBryan SuzanFPG [facility] [place]Start: 10-05-2021 End: 98-95-3278npttrltldrIxchp Kuns Other [employer] Other Start: 22-58-9289Iyejodcjh encounterBryan SuzanFPG [facility] [place]Start: 08-19-2021 End: 09-25-5121fktkhoykiwXridy Kuns Other [employer] Other Start: 84-02-5816Qfexvuywp encounterBryan SuzanFPG [facility] [place]Start: 06-17-2021 End: 92-97-6405llougistitDzzar Kuns Other [employer]: [employer] Other Start: 04-24-1515Vdqemop encounter procedureTian Hall [facility] [place]Start: 04-07-2021 End: 02-58-6272qbviafuheuAnogl [employer] Other [employer] Other Start: 42-38-9068Wbckygovp encounterBrykenrick HallFPG [facility] [place]Start: 02-23-2021 End: 48-58-0809sdenpnisipSqwcc [employer] Other [employer]: [employer] Other Start: 63-88-8673Itpbphfll encounterBrykenrick HallFPG [facility] [place]Start: 62-44-7775Pigpqw outpatient visit 15 minutesBrykenrick SuzanFPG [facility] [place] Procedures DateProcedureProcedure DetailPerforming ClinicianStart: 64-62-9791SSA (POC)Tian Hall DO Work Phone: Start: 22-84-4901Mxbwmijob mammography of bilateral breastsDO Tian Hall Work Phone: Start: 35-98-5725Gehvtjyyd mammography of bilateral breastsDO Tian Hall Work Phone: Biopsy of skinTian Hall Work Phone: Comment on above:left ear;ColonoscopyTian Hall Work Phone: Partial hysterectomyTian Hall Work Phone: Plan of Treatment DateCare ActivityDetailAuthorStart: 98-60-4138Sokqivw referralMercy Hospital Work Phone: Start: 66-63-4469Jbukkez [facility] Work Phone: Start: 67-93-3175KnsgaeharKing'S Daughters Medical Center [place] Comprehensive metabolic 1999 panel - Serum or PlasmaKing'S Daughters Medical Center OhioComprehensive metabolic 1999 panel - Serum or [facility] HospitalGlucose measurement estimated from glycated hemoglobinKing'S Daughters Medical Center OhioGlucose measurement estimated from glycated hemoglobin [facility] OhioPatient referralMercy Hospital Work Phone: XR Chest 2 [facility] Hospital[facility] 2 [facility] Immunizations Immunization DateImmunizationNotesCare [id number], seasonal, injectablePatient ObjectionTian Hall Other [employer] Other [id number] polysaccharide vaccine, 23 valentPatient ObjectionTian Hall Other [employer] Other [id number] toxoid, reduced diphtheria toxoid, and acellular pertussis vaccine, adsorbedPatient ObjectionTian Hall Other [employer] Other [id number], high dose seasonal, preservative-freePatient ObjectionBryan Kuns Other [employer] Other [id number] conjugate vaccine, 13 valent Patient ObjectionTian Hall Other [employer] Other [id number] vaccine recombinantPatient Objection Tian Hall Other [employer] Other NEGATED: Highlighted row has not occurred!05-21-2019 influenza, seasonal, injectablePatient ObjectionTian Hall Other [employer] Other NEGATED: Highlighted row has not occurred!2018 pneumococcal polysaccharide vaccine, 23 valentPatient ObjectionTian Hall Other [employer] Other NEGATED: Highlighted row has not occurred!2018 tetanus toxoid, reduced diphtheria toxoid, and acellular pertussis vaccine, adsorbedPatient ObjectionTian Hall Other [employer] Other NEGATED: Highlighted row has not occurred!2018 influenza, high dose seasonal, preservative-freePatient ObjectionTian Hall Other [employer] Other NEGATED: Highlighted row has not occurred!2018 pneumococcal conjugate vaccine, 13 valentPatient ObjectionTian Hall Other [employer] Other NEGATED: Highlighted row has not occurred!2018 zoster vaccine recombinantPatient ObjectionTian Hall Other [employer] Other Payers DatePayer CategoryPayerPolicy [id number] [id number] Health Insurance [id number] MEDICARE ADVMedicare [id number] Social History DateTypeDetailFacilityUnknown if ever smokedSellersburg [employer] Other Sex Assigned At BirthSex [facility] At [facility] [employer] Other Start: 05-18-3297Brg [facility]No alcohol useNo alcohol use-[facility] 250 DO Work Phone: Start: 2018 End: 67-16-1899Immluhz smoking status NHISNever smoked tobacco (finding) [facility]-30-2024 End: 56-16-9612VarOvgour (finding)[facility] [place] Medical Equipment Procedure CodeEquipment CodeEquipment Original TextEquipment IdentifierDates Accu-Chek Softclix Lancet DevStart: 43-55-1503Lmfazff (Accu-Chek [employer] Lancets) miscStart: 86-29-3678Gwgpnbd (Accu-Chek [employer] Lancets) miscStart: 89-40-9913Pdtjarf (Accu-Chek [employer] Lancets) miscStart: 22-26-7459Bvntw Sugar Diagnostic stripStart: 78-85-1441Uqekovh (Accu-Chek [employer] Lancets) miscStart: 26-03-4451Vcoam Sugar Diagnostic stripStart: 48-74-8154Ojdbqoc (Accu-Chek Soft[employer]ix Lancets) miscStart: 66-82-3620Tyens Sugar Diagnostic stripStart: 14-34-0094Vioqbqn (Accu-Chek Softclix Lancets) miscStart: 77-77-7311Tkamd Sugar Diagnostic stripStart: 48-38-4432Hhzelox (Accu-Chek Softclix Lancets) miscStart: 72-06-8322Auvkm Sugar Diagnostic stripStart: 52-27-1490Qcrjyon (Accu-Chek Softclix Lancets) miscStart: 37-12-3085Hnsip Sugar Diagnostic stripStart: 36-04-4233Rhegamt (Accu-Chek [employer] Lancets) miscStart: 80-57-8476Blqpz Sugar Diagnostic stripStart: 56-26-2934Rmccyzu (Accu-Chek [employer] Lancets) miscStart: 06-21-2023 Clinical Notes 04-12-2016 to 08-07-2024 Note Date & [id number] Evaluation note* Diagnosis Onset Date Resolution Status Admit Date Hypertension acuteMay 2024 8:55amPalpitationsacuteMay 2024 8:55am [facility] Work Phone: 1(715) 662-797805-20-2025 Evaluation note* Diagnosis Onset Date Resolution Status Admit Date Hypertension acuteMay 2024 8:55amPalpitationsacuteMay 2024 8:55amChest congestion acuteAugust 2024 1:19pmSinusitisacuteAugust 2024 1:19pmAcute cough acuteAugust 2024 8:25amPalpitationsacuteAugust 2024 8:25amType II diabetes mellitusacuteAugust 2024 8:25am [facility] Work Phone: 1(798) 534-613703-17-2025 Evaluation note* Author Teresa Murdock [facility] OhioAuthoredMar 2024 9:51amThe above note written by ERENDIRA Bergeron acting as human recorder, note dictated by Dr. Tian Hall. [facility] Work Phone: 1(192) 841-766501-10-2025 Evaluation note* Diagnosis Onset Date Resolution Status Admit Date Cough acuteJanuary 2024 8:13amHyperlipidemiaacuteJanuary 2024 8:13am HypertensionacuteJanuary 2024 8:13amHypothyroidismacuteJanuary 2024 8:13amMedicare annual wellness visit, subsequentacuteJanuary 2024 8:13am PalpitationsacuteJanuary 2024 8:13amType II diabetes mellitusacuteJanuary 2024 8:13am [facility] Work Phone: 1(147) 755-149001-09-2024 Evaluation note* Encounter Date Diagnosis Assessment Notes Treatment Notes Treatment Clinical Notes Mar, Elevated blood pressure (ICD-10 - R03.0) Mar,Hypothyroidism (ICD-10 - E03.9) [employer] Other 11-02-2023 Evaluation note* Encounter Date Diagnosis Assessment Notes Treatment Notes Treatment Clinical Notes Jan, Neoplasm of uncertain behavior o f skin (ICD-10 - D48.5) I did remove three lesions from the pt today. These were located on her left forehead 1.5cm, right forearm 1.1 cm, and right hand 1.2cm. The lesion on her hand is too large to remove today, thereforeonly one part of it was removed. We will remove the rest of this at a later date. These lesions were sent out for pathology. Pt tolerated procedure well. I did also provide treatment with liquid nitrogen to the 1.1 cm of the right forearm. Jan,ain (ICD-10 - R52) Jan,iabetes (ICD-10 - E11.9) Discussion of pt's medications. She is asking about a suppliment, and I advised it is okay for her to take this. I did advise she can stop the glimepiride, and continue just on the metformin. Jan,Elevated blood pressure (ICD-10 - R03.0) Pt is to continue on the above medications, and continue with Dr. Box. [employer] Other 11-02-2023 Evaluation note* Encounter Date Diagnosis Assessment Notes Treatment Notes Treatment Clinical Notes Jan, Neoplasm of uncertain behavior o f skin (ICD-10 - D48.5) I did remove three lesions from the pt today via shave biopsy. These were located on her left forehead 1.5cm, right forearm 1 cm, and right hand 1.2cm. The lesion on her hand is too large to remove in whole today, therefore only one part of it was removed. We will remove the rest of this at a laterdate. These lesions were sent out for pathology. Pt tolerated procedure well. I did also provide treatment with liquid nitrogen to the 0.5 cm of the left forearm. Jan,ain (ICD-10 - R52) Jan,iabetes (ICD-10 - E11.9) Discussion of pt's medications. She is asking about a suppliment, and I advised it is okay for her to take this. I did advise she can stop the glimepiride, and continue just on the metformin. Jan,Elevated blood pressure (ICD-10 - R03.0) Pt is to continue on the above medications, and continue with Dr. Box. Jan,Seborrheic keratoses (ICD-10 - L82.1) [employer] Other 10-16-2023 Evaluation note* Encounter Date Diagnosis Assessment Notes Treatment Notes Treatment Clinical Notes Dec, Diabetes (ICD-10 - E11.9) [employer] Other 10-12-2023 Evaluation note* Encounter Date Diagnosis Assessment Notes Treatment Notes Treatment Clinical Notes Dec, Diabetes (ICD-10 - E11.9) [employer] Other 09-13-2023 Evaluation note* Encounter Date Diagnosis Assessment Notes Treatment Notes Treatment Clinical Notes Nov, Medicare annual wellness visit, subsequent (ICD-10 - Z00.00) Personalized health advice was given to the beneficiary including a written plan for screenings discussed and provided. Advanced care planning reviewed and/or information given as requested. The above visit was performed by Lyric Kingsley LPN, under direct supervision of Dr. Tian Hall. Document reviewed and amended by provider signed below. Nov,iabetes (ICD-10 - E11.9) A1C is still higher than I would like to see. Now that she is experiencing some neuropathy of the lower extremities, I would like to add medication to get this reading down. Jardiance 10 mg daily will be started to help with glycemic control and also her cardiovascular system. Renal function is good. She is to continue with the metformin as ordered. Modify her diet and avoid excessive carbs/starche/ refined sugars Nov,Hyperlipidemia, unspecified (ICD-10 - E78.5) Recent lab results from April lipid test reviewed with patient today. At that time it was stable. I will check it again in the near future. Liver enzymes are normal. She denies any increased myalgia. I will continue with current meds as ordered. Remainder of her lab to include blood count and other chemestries are within normal limits Nov,Elevated blood pressure (ICD-10 - R03.0) Blood pressure is elevated today higher than I would like to see. She is not complaining of any side effects with the lisinopril. No cough to report. At this time I will increase the dose up to 20 mgdaily and monitor BP and any side effects Nov,Hypothyroidism (ICD-10 - E03.9) thyroid levels are still slightly low but this in not a new finding. She is asymptomatic and I do not want to adjust meds at this time. Encouraged to remember to take medication on empty stomach everyday Nov,Neuropathy (ICD-10 - G62.9) Patient reports that she has a sensation of socks on my feet all the time . I feel this neuropathyis more than likely related to her diabetes. I am going to increase her diabetes medication to get better control of her glucose and hopefully help with the neuropathy Nov,Hand paresthesia (ICD-10 - R20.2) Patient reports hand tingling and worse if she is carrying anything. Her decorating consultant are equal in strength. Patient also wakes up every night with hand numbness. Right hand is worse than the left. I feel this could be CTS and I will apply a brace to her right hand today and encouraged to wear it at . Cockup wrist splint provided at visit today Nov,Neoplasm of uncertain behavior (ICD-10 - D48.9) Patient has some changing skin lesions on her arms that she has noticed. There are 2 specific lesions that are suspicious on the left arm. These have changed in appearance, size, shape and color. I will schedule her for shave bx at later date. Nov,alpitations (ICD-10 - R00.2) Patient reports occasional fluttering sensation in her chest. Blood pressure is also elevated. I have not done an EKG in over 5 years so therefore I will do EKG in office today Nov,Screening mammogram for breast cancer (ICD-10 - Z12.31) It has been awhile since she had a mammogram as she is no longer following with Dr. Kingsley. I will order mammogram today. Encouraged to perform monthly SBE. Nov,bnormal EKG (ICD-10 - R94.31) In house EKG is not normal. Due to the elevation of blood pressure, the palpitations and the other comorbidites of diabetes, I feel a cardiolgist consultation is warranted. I will refer her out today. She is in agreement [employer] Other 07-11-2023 Evaluation note* Encounter Date Diagnosis Assessment Notes Treatment Notes Treatment Clinical Notes Sep, Elevated blood pressure (ICD-10 - R03.0) [employer] Other 04-13-2023 Evaluation note* Encounter Date Diagnosis Assessment Notes Treatment Notes Treatment Clinical Notes Jun, Diabetes (ICD-10 - E11.9) [employer] Other 03-13-2023 Evaluation note* Encounter Date Diagnosis Assessment Notes Treatment Notes Treatment Clinical Notes May, Hyperlipidemia, unspecified (ICD -10 - E78.5) Review of blood work results with the patient . No signs of anemia or leukemia. LIver enzymes and kidney functions are within normal limits. Cholesterol levels have increased somewhat compared to last year . At this time patient is to continue with the above medication and continue watching their diet and increase their exercise regimen. May,Hypothyroidism (ICD-10 - E03.9) TSH and Free T4 are somewhat elevated upon review of blood work results. The patient did have RSV approximately a month ago and states she is just beginning to feel herself. At this time I recommend the patient continue the above medication, and we will continue to monitor. May,iabetes (ICD-10 - E11.9) Glucose is 101 with a hgb a1c of 6.6, increased from 6.1 a year ago. Discussion was had the elevation could be related to recent oral steroid use. Pt is to continue with the above medication and continue watching their diet and increase their exercise regimen. May,Elevated blood pressure (ICD-10 - R03.0) The patient states she did run out of Lisinopril a few weeks ago. I recommend she continues the medication as this seems to control her blood pressure well. The patient states she has experienced some mild heart palpitations lasting for 2-3 seconds and resolves. I advise the patient to monitor these and if symptoms persist or worsen to contact the office. [employer] Other 02-14-2023 Evaluation note* Encounter Date Diagnosis Assessment Notes Treatment Notes Treatment Clinical Notes Apr, Cough (ICD-10 - R05.9) 14 Apr, 2022RSV (acute bronchiolitis due to respiratory syncytial virus) (ICD-10 - J21.0) 14 Apr, 2022RSV bronchitis (ICD-10 - J20.5) [employer] Other 12-05-2022 Evaluation note* Encounter Date Diagnosis Assessment Notes Treatment Notes Treatment Clinical Notes Feb, Diabetes (ICD-10 - E11.9) Feb,Hypothyroidism (ICD-10 - E03.9) Feb,Hyperlipidemia, unspecified (ICD-10 - E78.5) [employer] Other 11-30-2022 Evaluation note* Encounter Date Diagnosis Assessment Notes Treatment Notes Treatment Clinical Notes Jan, Elevated blood pressure (ICD-10 - R03.0) Patients blood pressure has been elevated and remains elevated in office today. I am going to starther on Lisinopril 5 mg one time per day to help control the blood pressure and this will also protect her kidneys from the DM. I will be monitoring this closely and I may need to titrate dose if needed. She does have an appointment scheduled in April. Jan,ight foot pain (ICD-10 - M79.671) Pain reported of the right foot especially in the heel area. Pain is worse with stepping on hard surfaces and does hurt worse first thing in the morning. She has put some new insoles in her shoes butthis has not helped. I am going to order Xray of the right foot to get a better look and I have provided some literature on plantar fasciitis. I feel she may have a heel spur. Jan,Left temporal headache (ICD-10 - R51.9) Patient reports left sided temporal headache on occasion. I am suspicious that this may be related to the blood pressure elevation. I will be checking back with her at the next appt in April to see if there is improvement. Jan,2Diabetes (ICD-10 - E11.9) Jan,Hyperlipidemia, unspecified (ICD-10 - E78.5) Jan,Hypothyroidism (ICD-10 - E03.9) [employer] Other 10-03-2022 Evaluation note* Encounter Date Diagnosis Assessment Notes Treatment Notes Treatment Clinical Notes Dec, Encounter for screen ing mammogram for malignant neoplasm of breast (ICD-10 - Z12.31) [employer] Other 08-02-2022 Evaluation note* Encounter Date Diagnosis Assessment Notes Treatment Notes Treatment Clinical Notes Oct, Cough (ICD-10 - R05.9) In house covid test was negative. I did prescribe the above medication and encouraged pt to increase fluid intake, throat lozenges or gargle with mouth wash as needed. Pt is to also take OTC pain medication and fever reducers as needed. Oct,Elevated blood pressure (ICD-10 - R03.0) The patients blood pressure is elevated upon check in. Oct,Eustachian tube dysfunction (ICD-10 - H69.80) Medications prescribed at todays visit for sinusitis/bronchitis. [employer] Other 07-18-2022 Evaluation note* Encounter Date Diagnosis Assessment Notes Treatment Notes Treatment Clinical Notes Sep, Hyperglycemia (ICD-10 - R73.9) [employer] Other 06-01-2022 Evaluation note* Encounter Date Diagnosis Assessment Notes Treatment Notes Treatment Clinical Notes Aug, Diabetes (ICD-10 - E11.9) [employer] Other 03-30-2022 Evaluation note* Encounter Date Diagnosis Assessment Notes Treatment Notes Treatment Clinical Notes May, Medicare annual wellness visit, initial (ICD-10 - Z00.00) Personalized health advice was given to the beneficiary including a written plan for screenings discussed and provided. Advanced care planning reviewed and/or information given as requested. The above visit was performed by Homa KRISHNA, under direct supervision of Dr. Tian Hall. Document reviewed and amended by provider signed below. May,creening for breast cancer (ICD-10 - Z12.39) Encouraged the patient to follow with gynecology and yearly mammograms. May,Hypothyroidism (ICD-10 - E03.9) Thyroid levels are abnormal but I do not wish to adjust her dose at this time as she is not symptomatic. We will recheck this in a year. May,2Diabetes (ICD-10 - E11.9) Review of the blood work with the patient, glucose continues to be elevated slightly. A1C currentlyis 6.1% which appears to be essentially unchanged from previous findings of 6.0%. She is to continue on the above medication. May,Hyperlipidemia, unspecified (ICD-10 - E78.5) Blood work reviewed with the patient. Cholesterol appears to be well controlled other than an elevated LDL at 112. Encouraged the patient to monitor her diet and stay active and continue on the abovemedication. May,ight leg pain (ICD-10 - M79.604) The patient reports lower extremity right leg pain describing it as feeling her skin is stretching or burnt. There is no apparent swelling, redness, or warmth to the area or cordlike veins. I advisedher to monitor this and immediately report any worsening or the above symptoms. Encouraged the use of compression stockings. May,creening for colon cancer (ICD-10 - Z12.11) Cologuard ordered. [employer] Other 01-18-2022 Evaluation note* Encounter Date Diagnosis Assessment Notes Treatment Notes Treatment Clinical Notes Mar, Hypothyroidism (ICD-10 - E03.9) [employer] Other 12-06-2021 Evaluation note* Encounter Date Diagnosis Assessment Notes Treatment Notes Treatment Clinical Notes Feb, Diabetes (ICD-10 - E11.9) [employer] Other 09-29-2021 Evaluation note* Encounter Date Diagnosis Assessment Notes Treatment Notes Treatment Clinical Notes Nov, Diabetes (ICD-10 - E11.9) Review of in house A1C, this has remained unchanged. Encouraged patient to continue on the above medication as she has been tolerating this well. Refill provided for test strips. Blood work ordered. We will continue to monitor. Nov,Neuropathy (ICD-10 - G62.9) Patient reports when she stands for long periods of time, she notices her feet/legs go numb. I advised her that is this was to worsen, we can look at medication options. She states it is manageable at this time. Nov,Hyperlipidemia, unspecified (ICD-10 - E78.5) Blood work ordered. Nov,Hypothyroidism (ICD-10 - E03.9) Blood work ordered. [employer] Other 01-23-2017 History general Narrative - Reported* Type Description Date Medical History Dexascan, Mammogram 2012 Medical HistoryHyperlipidemiaMedical HistoryType II diabetes mellitusMedical [id number] Colonoscopy Dr[address] EldridgeMedical History04/12/16, 07/04/2018 Mammogram Medical History05/2018 Negative cologuardSurgical Historyvaginal delivery x2 Surgical Historyd&cSurgical HistoryTotal Hysterectomy with Dr. Barrazae104/2015 Hospitalization HistorySEE ABOVE [email or web address] [facility] [employer] Other Chief complaint Narrative - ReportedCECILIA COLÓN is being seen for a consultation for an abnormal ECG and palpitations.-[facility] 250 DO Work Phone: Evaluation noteNo InformationNortUPMC Western Psychiatric Hospital [employer] Other Evaluation noteNo assessment information available [facility] Work Phone: Evaluation note* Author Lyric Kingsley [facility]hop[facility] medical centerAprct 2023 8:58am Sooner if needed, the ER if concerns,The above note written by Lyric Kingsley LPN acting as human recorder, note dictated by Dr. Tian Hall [facility] Work Phone: Evaluation note* Author Teresa Murdock [facility]hoPro[facility] 2024 9:51amThe above note written by ERENDIRA Bergeron acting as human recorder, note dictated by Dr. Tian Hall. [facility] Work Phone: History of Present illness Narrative* Patient is seen in consultation at the request of her family physician for an abnormal EKG. She is an individual who saw him for routine visit. She mention palpitation and an EKG was performed demonstrating sinus rhythm with some nonspecific ST-T wave changes * She has a history of hypertension and it sounds, historically, I because not been well controlled. She does claim to have good diabetes management and is also on statin therapy and I suspect that herdiabetes and hyperlipidemia are well controlled. She is a never smoker. She is aerobically very active. She does a wide variety of activities around the home and actually today drove here by herself,walked in from the parking lot, and went up the stairs (as opposed to taking the elevator). * Despite all these activities she has no anginal symptomatology. I cannot elicit any syncope near syncope or other significant arrhythmia symptoms. She has no orthopnea PND or dyspnea with exertion per se. * Her examination today is unrevealing. EKG today is mildly abnormal but these abnormalities could beon the basis of LVH, in turn, due to her hypertension. * In light of the absence of symptomatology and good risk factor management and overall what I believed to be a low probability of significant flow-limiting coronary disease I suggest clinical observation. The patient was educated regarding symptoms to watch for and encouraged to seek care if such symptoms arise or occur but otherwise we will see her, at her request, as needed. -[facility] 250 DO Work Phone: Hospital Discharge instructionsAmbulatory Orders* Referral to Dermatology Time Frame: 06/04/24, Location: None [facility] Work Phone: Reason for referral (narrative)* Reason Patient is needing c onsultation and treatment. If it is a long wait to see Dr. Box then any of the cardiologists will be fine. Please call patient with appt date and time. Thanks Diagnosis 1 Abnormal EKG (R94.31 ) Diagnosis 2 Palpitations (R00.2) Diagnosis 3 Diabetes (E11.9) Diagnosis 4 Hyperlipidemia, unsp ecified (E78.5) Referral Organization [facility] Referring Provider First Name Tian Referring Provider Last Name Suzan Referring Provider Specialty Family Prac aidan Referred Organization [facility] Referred Provider Shaheen Box Referred Address [address] [facility] [address] [place] [address] Referred Provider Specialty Cardiology Referral Priority Routine [facility] [employer] Other Reason for referral (narrative)No reason for referral information availableMercy Hospital Work Phone: Advance Directives Advance Directive Response Recorded Date/ Time Advance Directives No April 20, 2017 4:35pm Advance Directive Response Recorded Date/ Time Advance Directives No April 20, 2017 5:35pm Advance Directive Response Recorded Date/ Time Advance Directives No April 13, 2023 5:40pm Advance Directive Response Recorded Date/ Time Advance Directives No April 13, 2023 4:40pm Advance Directive Response Recorded Date/ Time Advance Directives No April 12:14pm Family History Unknown Family Member Name Dates Details Family history of malignant neoplasm: Sister, Brother(V16.9, Z80.9) Status:ActiveFamily history of cardiac disorder: Mother, Sister, Brother, Father (V17.49, Z82.49) Status:ActiveHistory of PTCA: Mother, Father, Sister, Brother(V45.82, Z98.61) Status:Active Relationship Condition Age at Onset Recorded Date/T omari father Aneurysm Unknown DeceasedUnknowngrandparentDeceasedUnknownTuberculosisUnknownNot Specified DeceasedUnknownsisterDeceasedUnknown Relationship Condition Age at Onset Recorded Date/T omari father Aneurysm Unknown DeceasedUnknowngrandparentDeceasedUnknownTuberculosisUnknownmotherDeceased UnknownsisterDeceasedUnknown Relationship Condition Age at Onset Recorded Date/T omari father Aneurysm Unknown DeceasedUnknowngrandparentDeceasedUnknownTuberculosisUnknownmotherDeceased UnknownsisterDeceasedUnknown Relationship Condition Age at Onset Recorded Date/T omari father Aneurysm Unknown DeceasedUnknownHistory of coronary artery bypass surgeryUnknowngrandparent DeceasedUnknownTuberculosisUnknownmotherDeceasedUnknownsisterDeceasedUnknown Summary Purpose Chief Complaint and Reason for Visit Chief Complaint E11.9 Z12.31 Chief Complaint 5 month DM - hgb a1c Reason for Visit Acid reflux Constipation Epigastric abdominal pain Hyperlipidemia Hypertension Hypothyroidism Lower extremity edema Type II diabetes mellitus Chief Complaint E11.9 E78.5 E03.9 Chief Complaint E11.9 E78.5 E03.9 Screening Chief Complaint Admit Date Screening January 05, 2024 8 :56am Medicare Wellness March 30, 2024 8 :13am Reason for Visit Admit Date Cough March 30, 2024 8 :13am Hyperlipidemia March 30, 2024 8 :13am Hypertension March 30, 2024 8 :13am Hypothyroidism March 30, 2024 8 :13am Medicare annual wellness visit, subseque nt March 30, 2024 8:13am Palpitations March 30, 2024 8 :13am Type II diabetes mellitus March 30, 2024 8:13am Chief Complaint Admit Date Screening January 05, 2024 8 :56am Medicare Wellness March 30, 2024 8 :13am R00.2 E11.9 March 30, 2024 9 :14am Chief Complaint Admit Date Medicare Wellness March 30, 2024 8 :13am R00.2 E11.9 March 30, 2024 9 :14am Cyst on right hand June 04, 2024 9:1 4am Reason for Visit Admit Date Cough March 30, 2024 8 :13am Hyperlipidemia March 30, 2024 8 :13am Hypertension March 30, 2024 8 :13am Hypothyroidism March 30, 2024 8 :13am Medicare annual wellness visit, subseque nt March 30, 2024 8:13am Palpitations March 30, 2024 8 :13am Type II diabetes mellitus March 30, 2024 8:13am Encounter for medication counseling [facility] 2024 9:14am Neoplasm of uncertain behavior of skin M arch 2024 9:14am Chief Complaint Admit Date Medicare Wellness March 30, 2024 8 :13am R00.2 E11.9 March 30, 2024 9 :14am Cyst on right hand June 04, 2024 9:1 4am Palpitations, HTN, Type 2DM, Abnormal EK G June 28, 2024 8:53am Reason for Visit Admit Date Cough March 30, 2024 8 :13am Hyperlipidemia March 30, 2024 8 :13am Hypertension March 30, 2024 8 :13am Hypothyroidism March 30, 2024 8 :13am Medicare annual wellness visit, subseque nt March 30, 2024 8:13am Palpitations March 30, 2024 8 :13am Type II diabetes mellitus March 30, 2024 8:13am Encounter for medication counseling [facility] 2024 9:14am Neoplasm of uncertain behavior of skin M arch 2024 9:14am Hypertension June 28, 2024 8:5 3am Palpitations June 28, 2024 8:5 3am Chief Complaint Admit Date Cyst on right hand June 04, 2024 9:1 4am Palpitations, HTN, Type 2DM, Abnormal EK G June 28, 2024 8:53am R00.2 June 28, 2024 8:5 5am Reason for Visit Admit Date Encounter for medication counseling Geovanny rodriguez 2024 9:14am Neoplasm of uncertain behavior of skin M arch 2024 9:14am Hypertension June 28, 2024 8:5 3am Palpitations June 28, 2024 8:5 3am Chief Complaint Admit Date 6 week f/u August 07, 2024 8:55a m cough 2 weeks October 25, 2024 1:1 9pm Reason for Visit Admit Date Hypertension August 07, 2024 8:55a m Palpitations August 07, 2024 8:55a m Chief Complaint Admit Date 6 week f/u August 07, 2024 8:55a m cough 2 weeks October 25, 2024 1:1 9pm Follow up heart/A1C in office October 8:25am Reason for Visit Admit Date Hypertension August 07, 2024 8:55a m Palpitations August 07, 2024 8:55a m Chest congestion October 25, 2024 1:1 9pm Sinusitis October 25, 2024 1:1 9pm Acute cough October 29, 2024 8: 25am Palpitations October 29, 2024 8: 25am Type II diabetes mellitus October 29, 2 025 8:25am Additional Source Comments REASON FOR VISIT (unrecogniz ed section and content) 6 month Follow up DM, A1CRef illsrefillMedicare wellness INITIALRefilltest strip/lancetsClinical Acute Illnesscovid test 1st - coughClinicalbp highrefillscough, chest congestioncough3 month follow up HTN - review bw LABS PRINTED, hyperlipidemia,DM managementRefillClinical Acute IllnessRefillsmedicare wellness [id number] - 30 min [id number] - 30 min procedureRefills Care Teams (unrecognized sec tion and content) Team Status: Active Member Role Status Dates Tian Hall DO Primary Care Provider Active Team Status: Inactive Member Role Status Dates Tian Hall DO Primary Care Provider, Attending Provi sol Active Team Status: Inactive Member Role Status Dates Tian Hall DO Primary Care Provide r, Attending Provider Active Start: June 22, 2023 End: June 22, 2023 Team Status: Inactive Member Role Status Dates Tian Hall DO Primary Care Provide r, Attending Provider Active Start: December 22, 2023 End: December 22, 2023 Team Status: Inactive Member Role Status Dates Tian Hall DO Primary Care Provide r, Referring Provider Active Start: January 05, 2024 End: January 04eferral SelfAttending ProviderActiveStart: January 05, 2024 End: January 05, 2024 Team Status: Inactive Member Role Status Dates Tian Hall DO Primary Care Provide r, Attending Provider Active Start: March 30, 2024 End: March 30, 2024 Team Status: Active Member Role Status Dates Tian Hall DO Primary Care Provide r, Attending Provider Active Start: March 30, 2024 Team Status: Active Member Role Status Dates Tian Hall DO Primary Care Provide r, Other Provider Active Start: March 30, 2024 Elaine Mcguire MDAttending ProviderActiveStart: March 30, 2024 Team Status: Inactive Member Role Status Dates Tian Hall DO Primary Care Provide r, Attending Provider Active Start: June 04, 2024 End: June 04, 2024 Team Status: Inactive Member Role Status Dates Tian Hall DO Primary Care Provide r, Referring Provider Active Start: June 28, 2024 End: June 28, 2024George Garland Duarte MDAttending ProviderActiveStart: June 28, 2024 End: June 28, 2024 Team Status: Active Member Role Status Dates Tian Hall DO Primary Care Provider Active Sta rt: June 28, 2024 Edmond Garland Duarte MDAttending ProviderActiveStart: June 28, 2024 Team Status: Inactive Member Role Status Dates Tian Hall DO Primary Care Provider Active Sta rt: June 28, 2024 End: June 28, 2024Geortroy Duarte MDAttending ProviderActiveStart: June 28, 2024 End: June 28, 2024 Team Status: Inactive Member Role Status Dates Tian Hall DO Primary Care Provider Active Sta rt: August 07, 2024 End: August 07, 2024Geortroy Duarte MDAttending ProviderActiveStart: August 07, 2024 End: August 07, 2024 Team Status: Inactive Member Role Status Dates Tian Hall DO Primary Care Provider Active Sta rt: October 25, 2024 End: October 25, 2024Teresa Chapman APRN THERMOSCREW OPERATOR-CAttending ProviderActive Start: October 25, 2024 End: October 25, 2024 Team Status: Inactive Member Role Status Dates Tian Hall DO Primary Care Provider Active Sta rt: October 29, 2024 End: October 29chet Hall DOAttending ProviderActiveStart: October 29, 2024 End: October 29, 2024 Goals (unrecognized section and content) Goals may be documented in a n alternate section INFORMATION SOURCE (unrecogn ized section and content) DATE CREATED AUTHOR 12/21/2022 [facility] DATE CREATED AUTHOR AUTHOR'S ORGANIZ ATION 12/21/2022 [employer] DATE CREATED AUTHOR AUTHOR'S ORGANIZ ATION 06/17/2024 [facility] DATE CREATED AUTHOR AUTHOR'S ORGANIZ ATION 06/29/2024 [facility] FOR RECORDS PERTAINING TO PATIENTS WHO ARE OR HAVE BEEN ENROLLED IN A CHEMICAL DEPENDENCY/SUBSTANCEABUSE PROGRAM, SOME INFORMATION MAY BE OMITTED. This clinical summary was aggregated from multiple sources. Caution should be exercised in using it in the provision of clinical care. This summary normalizes information from multiple sources, and as a consequence, information in this document may materially change the coding, format and clinical context of patient data. In addition, data may be omitted in some cases. CLINICAL DECISIONS SHOULD BE BASED ON THE PRIMARY CLINICAL RECORDS. [facility] [employer] provides no warranty or guarantee of the accuracy or completeness of information in this document.
[2025-01-21 09:11] LABS: Hematocrit 37.0 % (36.0-48.0); Hemoglobin 12.4 g/dL (12.0-16.0); Immature Granulocytes Abs Auto 0.01 10^3/uL (0.00-0.03); Immature Granulocytes Pct Auto 0.2 % (0.0-0.5); Lymphocytes Absolute Auto 1.8 10^3/uL (1.2-3.8); Mean Corpuscular HGB Conc 33.5 g/dL (29.9-35.2); Mean Corpuscular Hemoglobin 30.0 pg (26.7-34.0); Mean Corpuscular Volume 89.4 fL (81.0-99.0); Platelet Count 270 10^3/uL (150-450); Red Blood Count 4.14 10^6/uL (4.20-5.40); White Blood Count 5.6 10^3/uL (4.0-11.0)
[2025-01-21 09:30] LABS: Alanine Aminotransferase 21 U/L (14-59); Albumin Globulin Ratio 1.2; Albumin Level 3.8 g/dL (3.4-5.0); Alkaline Phosphatase 53 U/L (46-116); Anion Gap 12.2; Aspartate Amino Transferase 13 U/L (15-37); Blood Urea Nitrogen 14.0 mg/dL (7.0-18.0); Calcium 8.9 mg/dL (8.5-10.1); Carbon Dioxide 28.9 mmol/L (21.0-32.0); Chloride 94 mmol/L (98-107); Cholesterol 165 mg/dL (<=200); Estimated GFR (African America >60 (>=60 mL/min/1.73m^2); Estimated GFR (Non-African Ame >60 (>=60 mL/min/1.73m^2); Globulin 3.3 g/dL; Glucose 98 mg/dL (74-106); HDL Cholesterol 62 mg/dL (40-60); Potassium 4.1 mmol/L (3.5-5.1); Sodium 131 mmol/L (136-145); Thyroid Stimulating Hormone 4.564 uIU/mL (0.358-3.740); Total Protein 7.1 g/dL (6.4-8.2); Triglycerides 80 mg/dL (<=150); VLDL CHOLESTEROL 16.0 mg/dL
== END 2025-01-21 08:18 | disposition home or self-care (01) ==
LOC: LAB 08:21
PROVIDERS: PCP Family Medicine; Visit Provider Family Medicine
DX: E11.9 Type 2 diabetes mellitus without complications (principal)
CPT/HCPCS: 36415; 80053; 80061; 82043; 82570; 83036; 84443; 85025

== ENCOUNTER 2025-01-22 08:23 | Outpatient (REF) | payer MEDICARE, SELFPAY ==
--- OUTSIDE RECORDS SUMMARY | 2025-01-22 08:29 | XMS_ITS | CCD ---
Author Organization [facility] Care Team Providers Care Field Return Repairer Name Role Phone Tian Hall Unavailable Suzan, DO Tian Primary Care Provider Suzan, DO Tian Attending Provider [phone] DO Tian Hall Primary Care Provider Suzan DO Tian Attending Provider Tian Hall P Unavailable Unavailable Unavailable Suzan, Dr. Tian Phillips Primary Care Unavaila ble Charu SAM, Dr. Shaheen Phillips Referring Unavailable Charu SAM, Dr. Shaheen Phillips Attending Unavailable DO Tian Hall Primary Care Provider DO Tian Hall Attending Provider DO Tian Hall Referring Provider [phone] Self, Referral Attending Provider Unavailable Tian Hall DO Primary Care Provider Tian Hall DO Referring Provider [phone] Self, Referral Attending Provider Unavailable Tian [...] Attending Provider Tian Hall DO Attending Provider [phone] Medications Current Medications MedicationDrug Class(es)DatesSig (Normalized)Sig (Original)Accu-Chek Stephania Plus - (20 sources)Start: 41-04-0109Vnvw-Chek Stephania Plus - check glucose In Vitro one time per day for E11.9 May, ActiveStart: 71-72-6827Swzr-Chek Stephania Plus - as directed In Vitro May, Activeamoxicillin 500 mg / clavulanate 125 mg oral tablet (1 source)Penicillin-class AntibacterialStart: 59-21-2834atgm 1 tablet by mouth every twelve hoursAmoxicillin-Pot Clavulanate (Augmentin) 500-125 mg tablet Active 1 TAB PO Every 12 hours October 25, 2024 12:00am Complies with drug therapybenzonatate 100 mg oral capsule (3 sources)Non-narcotic AntitussiveStart: 67-22-1761rhpb 1 capsule by mouth three times daily as neededTessalon Perles 100 MG 1 capsule as needed Orally Three times a day for 7 days Aug, ActiveStart: 83-51-9141gbwz 1 capsule by mouth every eight hoursBenzonatate 200 MG 1 capsule Orally Three times a day for 30 days Apr, ActiveBlood Sugar Diagnostic (3 sources)Start: 21-07-8302Dgvxl Sugar Diagnostic Active 0 .ROUTE June 21, 2023 12:00am As directedCalcium (20 sources)Phosphate Binder, CalciumCalcium as directed Orally Activecalcium acetate 600 mg oral tablet (17 sources)Start: 61-03-5626nauo 600 mg by mouth once dailycalcium acetate Active 600 MG PO Daily March 30, 2024 9:59am Complies with drug therapy Start: 06-21-2023 End: 27-27-1194nvmmzfg acetate Discontinued PO June 21, 2023 12:00am March 30, 2024 10:03amStart: 06-21-2023 End: 39-34-5029rushypk acetate Discontinued PO June 20, 2023 11:00pm March 30, 2024 9:03amStart: 75-09-4786jkbupdf acetate Active PO June 21, 2023 12:00amChia Seed - (20 sources)Bam Seed - as directed Orally Activecholecalciferol 0.125 mg oral capsule (7 sources)Vitamin DStart: 47-91-0904ofub 1 capsule by mouth once daily Cholecalciferol (Vitamin D3) 125 mcg (5,000 unit) capsule Active 125 MCG PO Daily March 30, 2024 1:00am Complies with drug therapycinnamon bark 500 mg oral capsule (18 sources)Start: 06-21-2023 End: 35-26-9221wznh 1 capsule by mouth once dailyCinnamon Bark 500 mg capsule Active 1000 MG PO Daily March 30, 2024 9:58am Complies with drug therapy Start: 60-82-0449Itkvahum Bark Active MG PO As Directed June 21, 2023 12:00am Cinnamon 500 MG as directed Orally Activecinnamon preparation 500 mg oral tablet (20 sources)Non-Standardized Food Allergenic ExtractCinnamon 500 MG as directed Orally Activeempagliflozin 10 mg oral tablet (3 sources)Sodium-Glucose Cotransporter 2 InhibitorStart: 34-59-7507bplp 1 tablet by mouth every twenty-four hoursJardiance 10 MG 1 tablet Orally Once a day for 90 days Nov, ActiveFish Oils (20 sources)take 1 capsule by mouth once dailyFish Oil 1000 MG 1 capsule Orally Once a day ActiveFlaxseed extract (10 sources)Non-Standardized Food Allergenic Extract, Non-Standardized Plant Allergenic ExtractStart: 46-04-3480Kroqelso powder Active EACH PO June 21, 2023 12:00am Complies with drug therapyStart: 12-03-0691Dtvyeymm powder Active EACH PO June 21, 2023 12:00amStart: 34-92-8912Effeiftc powder Active EACH PO June 20, 2023 11:00pmStart: 32-03-2724Ulcbgyog Active EACH PO June 21, 2023 12:00amFlaxseed Oil 1000 MG (19 sources)Flaxseed Oil 1000 MG as directed Orally Activefluorouracil 50 mg/ml topical cream (3 sources)Nucleoside Metabolic InhibitorStart: 99-51-4507Hhvxrf 5 % 1 application to affected area Externally Twice a day Apr, Active glimepiride 1 mg oral tablet (10 sources)SulfonylureaStart: 01-31-2024 End: 07-57-4897yjjs 1 tablet by mouth twice dailyGlimepiride 1 mg tablet Active 1 MG PO Twice daily 180 July 30, 2024 12:39pm Complies with drug therapyStart: 11-87-0079jndp 1 tablet by mouth every twenty-four hoursGlimepiride 1 MG 1 tablet with breakfast or the first main meal of the day Orally Once a 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 Dec, ActivehydroCHLOROthiazide 25 mg oral tablet (17 sources)Thiazide DiureticStart: 04-20-6456pcht 1 tablet by mouth once daily Hydrochlorothiazide 25 mg tablet Active 25 MG PO Daily August 07, 2024 12:00am Complies with drug therapyStart: 06-21-2023 End: 82-21-5404welx 1 capsule by mouth once dailyHydrochlorothiazide 12.5 mg capsule Discontinued 12.5 MG PO Daily June 06, 2024 12:55pm August 07, 2024 9:29amStart: 32-15-2695khjr 1 capsule by mouth once dailyhydroCHLOROthiazide 12.5 [...] 500 mg oral tablet (1 source)Quinolone AntimicrobialStart: 77-66-8351phhv 1 tablet by mouth once dailyLevofloxacin 500 mg tablet Active 500 MG PO Daily 09 24October 29, 2024 12:00am Complies with drug therapylevothyroxine sodium 0.05 mg oral tablet (20 sources)l-ThyroxineStart: 06-21-2023 End: 54-48-8962kzau 1 tablet by mouth once dailyLevothyroxine 50 mcg tablet Active 50 MCG PO Daily March 15, 2024 1:18pm Complies with drugtherapy Start: 30-98-1849Lwtlfvhvkamgo Sodium 50 MCG 1 tablet every morning [...] 500 mg oral tablet (7 sources)Nicotinic AcidStart: 16-94-5126egrs 1 tablet by mouth once daily Niacin 500 mg tablet Active 500 MG PO Daily March 30, 2024 1:00am Complies with drug therapyomega-3 fatty acids (Fish Oil) (17 sources)Start: 52-43-1959kqso 1 capsule by mouth once dailyomega-3 fatty acids (Fish Oil) Active 1 CAP PO Daily March 30, 2024 10:00am Complies with drug therapyStart: 76-34-8507uvux 1 capsule by mouth once dailyomega-3 fatty acids (Fish Oil) Active 1 CAP PO Daily March 30, 2024 10:00amStart: 34-97-3491dpzm 1 capsule by mouth once dailyomega-3 fatty acids (Fish Oil) Active 1 CAP PO Daily March 30, 2024 9:00amStart: 06-21-2023 End: 94-65-3210bbmos-3 fatty acids (Fish Oil) Discontinued PO June 21, 2023 12:00am March 30, 2024 10:03amStart: 06-21-2023 End: 40-98-3078azmxh-3 fatty acids (Fish Oil) Discontinued PO June 20, 2023 11:00pm March 30, 2024 9:03amStart: 56-17-2567exrym-3 fatty acids (Fish Oil) Active PO June 21, 2023 12:00ampredniSONE 10 mg oral tablet (10 sources)Start: 68-60-2794Qbehpsbkfn 10 mg tablet Active 10 MG PO .COMPLEX October 29, 2024 12:00am 10 mg orally BID x 5 days, QD X5 DAYS; Complies with drug therapyStart: 10-29-2024 End: 07-53-8769Ubxwpygikf 20 mg tablet Discontinued 20 MG PO .COMPLEX October 29, 2024 12:00am October 29, 2024 9:36am 20 mg orally BID x 5 days, QD x 5 days;Start: 10-19-2024 End: 62-54-6577ibaw 1 tablet by mouth once dailyPrednisone 20 mg tablet Discontinued 20 MG PO Daily 5 October 19, 2024 12:00am October 25, 2024 1:23pm Start: 74-58-6032thul 1 tablet by mouth every twelve hoursprednisone 20 MG 1 tablet Orally BID for 5 Aug, ActiveStart: 34-19-2971ynzwokCYJR 20 MG 1 tablet Orally BID X 5 DAYS, QD X 5 DAYS for 10 DAYS Apr, ActiveStart: 54-03-8765gurpsdQNIW 20 MG 1 tablet Orally BID x 5 days then daily x 5 days for 10 days Oct, ActiveProbiotic - (3 sources)Probiotic - Orally ActiveTurmeric Root Extract 500 mg tablet (7 sources)Start: 77-26-2560jeny 1 tablet by mouth once dailyTurmeric Root Extract 500 mg tablet Active 1000 MG PO Daily March 30, 2024 1:00am Complies withdrug therapyStart: 00-80-3593qonc 1 tablet by mouth once dailyTurmeric Root Extract 500 mg tablet Active 1000 MG PO Daily March 30, 2024 1:00amStart: 59-95-8238qnye 1 tablet by mouth once dailyTurmeric Root Extract 500 mg tablet Active 1000 MG PO Daily March 30, 2024 12:00amubidecarenone 100 mg oral capsule (7 sources)Start: 06-59-7825Utycqvlk Q10 (Coq-10) 100 mg capsule Active 300 MG PO Daily March 30, 2024 1:00am Complies withdrug therapyvitamin b12 1 mg oral capsule (7 sources)Vitamin B80Kmsnp: 75-88-6769cnsf 1 capsule by mouth once daily Cyanocobalamin (Vitamin B-12) 1,000 mcg capsule Active 1000 MCG PO Daily March 30, 2024 1:00am Complies with drug therapyVitamin D 1000 UNIT (3 sources)take 1 tablet by mouth once dailyVitamin D 1000 UNIT 1 tablet Orally Once a day for 30 day(s) Activevitamin e 180 mg oral capsule (7 sources)Start: 34-89-0839irpj 1 capsule by mouth once dailyVitamin E (Dl, Acetate) 180 mg (400 unit) capsule Active 180 MG PO Daily March 30, 2024 1:00am Complies with drug therapy Completed/Discontinued Medications MedicationDrug Class(es)DatesSig (Normalized)Sig (Original)azithromycin 250 mg oral tablet (8 sources)Macrolide AntimicrobialStart: 10-19-2024 End: 20-76-7968Tpnmxoyacmwo (Zithromax Z-Yuan) 250 mg tablet Discontinued 0 PO .COMPLEX 6 October 19, 2024 12:00am October 25, 2024 1:22pm For 250 mg dose pack: take 500 mg today (day 1), then 250 mg for 4 days (days 2-5) POStart: 43-02-4622Qpkivcyhrrfz 250 MG 2 tablet on the first day, then 1 tablet daily for 4 days Orally Once a day for5 day(s) Aug, ActiveStart: 05-04-2022 Zithromax Z-Yuan 250 MG 2 tablets on the first day, then 1 tablet daily for 4 days Orally Once a dayfor 5 day(s) Apr, ActiveStart: 30-07-7092Butmnjqyb Z-Yuan 250 MG as directed Orally as directed Oct, Activebetamethasone 1 mg/ml topical cream (20 sources)CorticosteroidStart: 06-21-2023 End: 01-30-9754Wzhrkvkkpzdjl Valerate 0.1 % cream Discontinued 1 APPLIC TOPICAL Daily June 21, 2023 12:00am March 30, 2024 10:02am 1 application to affected area Externally Once a dayStart: 45-18-8688Hjuknaturjcet Valerate 0.1 % 1 application to affected area Externally Once a day Oct, ActiveStart: 62-45-8798Hkctconzhfsen Valerate 0.1 % 1 application to affected area Externally Once a day Oct, Activeesomeprazole 40 mg delayed release oral capsule (20 sources)Proton Pump InhibitorStart: 06-22-2023 End: 37-44-0849voaf 1 capsule by mouth once dailyEsomeprazole Magnesium 40 mg capsule,delayed release(DR/EC) Discontinued 40 MG PO Daily June 22, 2023 9:42am March 30, 2024 10:03amlisinopril 20 mg oral tablet (20 sources)Angiotensin Converting Enzyme InhibitorStart: 06-21-2023 End: 79-43-7594kgkm 1 tablet by mouth once dailyLisinopril 20 mg tablet Discontinued 20 MG PO Daily June 21, 2023 12:00am June 22, 2023 9:42amStart: 25-75-4135zqxe 1 tablet by mouth every twenty-four hoursLisinopril 20 MG 1 tablet Orally Once a day for 90 days Jan, ActiveStart: 36-37-7744sxlt 1 tablet by mouth every twenty-four hoursLisinopril 5 MG 1 tablet Orally Once a day for 90 days Jan, ActivemetFORMIN hydrochloride 500 mg oral tablet (20 sources)BiguanideStart: 06-21-2023 End: 46-25-6537qlsx 1 tablet by mouth twice dailyMetformin 500 mg tablet Discontinued 500 MG PO Twice daily 180 June 22, 2023 9:42am July 04, 2024 3:42pmStart: 80-79-3996jrmh 1 tablet by mouth every twelve hoursmetFORMIN HCl 500 mg 1 tablet with meals Orally Twice a day Jan, Activeolmesartan medoxomil 20 mg oral tablet (20 sources)Angiotensin 2 Receptor BlockerStart: 06-22-2023 End: 59-20-7378afqp 1 tablet by mouth once dailyOlmesartan 20 mg tablet Discontinued 20 MG PO Daily March 19, 2024 10:04am March 19, 2024 12:52pmsimvastatin 20 mg oral tablet (20 sources)HMG-CoA Reductase InhibitorStart: 06-21-2023 End: 07-16-8856zzzv 1 tablet by mouth once dailySimvastatin 20 mg tablet Discontinued 20 MG PO Daily June 22, 2023 8:58am June 22, 2023 9:43am Start: 45-50-0596Litsvwmrsel 20 MG 1 tablet every evening Orally Once a day Sep, Activesucralfate 1000 mg oral tablet (9 sources)Aluminum ComplexStart: 07-13-2023 End: 32-47-2511bnjt 1 tablet by mouth twice daily 30 minutes before breakfast Sucralfate (Carafate) 1 gram tablet Discontinued 1 GM PO Twice daily 60 July 13, 2023 12:00am March 30, 2024 10:03am take 1 tablet 30 mins before breakfast and then take 1 tablet 30 mins before dinner Problems Active Problems Problem ClassificationProblemDateDocumented DateEpisodic/ChronicAbdominal pain (11 sources)Epigastric pain; Translations: [Epigastric pain]00-01-0154Lxhpnrcq Acute bronchitis (2 sources)Acute bronchiolitis due to respiratory syncytial virus; Translations: [Acute bronchitis due to respiratory syncytial virus]Episodic Administrative/social admission (8 sources)Patient encounter status; Translations: [Other specified counseling] 84-87-9811ZnjbwasuJiohpvg dysrhythmias (18 sources)Palpitations; Translations: [Palpitations]Onset: 86-72-7260Qedhbtqk Diabetes mellitus without complication (20 sources)Diabetes mellitus without complication; Translations: [Type 2 diabetes mellitus without complications]Onset: 12-17-2020 Resolved: 24-18-4551CkgllemJzeadeykp of lipid metabolism (20 sources)Hyperlipidemia; Translations: [Hyperlipidemia, unspecified]Onset: 12-17-2020 Resolved: 68-38-7027IxbcuxvYfdyjkgvbh disorders (11 sources)Gastroesophageal reflux disease; Translations: [Gastro-esophageal reflux disease without esophagitis]69-06-5856ZxyijzrCgactvlwg hypertension (20 sources)Benign essential hypertension; Translations: [Benign essential hypertension]11-40-9739VxoscehLetlkqimi of unspecified nature or uncertain behavior (11 sources)Neoplasm of uncertain behavior, unspecified; Translations: [Neoplasm of uncertain behavior of skin]EpisodicOther circulatory disease (8 sources)Elevated blood-pressure reading, without diagnosis of hypertension Onset: 10-20-2021 Resolved: 77-31-3252SokjupofUzmjj circulatory disease (2 sources)Pulmonary congestion ; Translations: [Other specified symptoms and signs involving the circulatory and respiratory systems]13-56-0614RdyajlgrSiumm connective tissue disease (1 source)Pain in right footEpisodicOther ear and sense organ disorders (20 sources)Ear lesion; Translations: [Unspecified disorder of ear, unspecified ear]EpisodicOther gastrointestinal disorders (10 sources)Constipation; Translations: [Constipation, unspecified]06-22-2023 EpisodicOther gastrointestinal disorders (1 source)Constipation, unspecified; Translations: [Constipation, unspecified] 66-24-5775ZcdmqzyvMjfiz lower respiratory disease (11 sources)Cough; Translations: [Cough]59-56-9344AchmwdtvIjvxt lower respiratory disease (2 sources)Cough; Translations: [Acute cough]66-07-4143MygsczlcTokqo nervous system disorders (20 sources)Neuropathy; Translations: [Polyneuropathy, unspecified]06-21-2023 ChronicOther nervous system disorders (2 sources)Polyneuropathy, unspecified; Translations: [Neuropathy G62.9]Onset: 12-17-2020 Resolved: 19-20-2676QjecoevSmksd nervous system disorders (6 sources)Skin sensation disturbance; [...] for malignant neoplasm of colon]Onset: 06-17-2021 Resolved: 81-47-1575DyocmajtQghal skin disorders (1 source)Other seborrheic keratosisEpisodicOther upper respiratory infections (2 sources)Sinusitis; Translations: [Chronic sinusitis, unspecified]10-25-2024 ChronicResidual codes; unclassified (2 sources)Pain, unspecifiedEpisodicResidual codes; unclassified (10 sources)Edema of lower extremity; Translations: [Localized edema]06-22-2023 EpisodicResidual codes; unclassified (1 source)Localized edema; Translations: [Edema]70-50-1997JqlmlvadTjsqtmq disorders (20 sources)Hypothyroidism; Translations: [Hypothyroidism, unspecified]Onset: 12-17-2020 Resolved: 12-04-2562Sqsljbb Past or Other Problems Problem ClassificationProblemDateDocumented DateEpisodic/ChronicDiabetes mellitus without complication (1 source)Hyperglycemia, unspecifiedOnset: 10-05-2021 Resolved: 03-25-5687ZjpkoflcJavgpgcd; including migraine (1 source)Headache; including migraineOther connective tissue disease (1 source)Pain in right legOnset: 06-17-2021 Resolved: 33-11-0995SkkacanhUpbulh media and related conditions (1 source)Other specified disorders of Eustachian tube, unspecified earOnset: 10-20-2021 Resolved: 46-39-9483TnrgxvfkOgahqtembqtn (2 sources)Cough R05.9Onset: 10-20-2021 Resolved: 94-91-7095Vfrlkcsumkmf (1 source)Never smoked tobacco; Translations: [Never a smoker] Results Test NameValueInterpretationReference RangeFacilityNo Panel InformationOrdered By: Tian Hall on 52-36-1384GOK (POC)[facility] SystemFPG ECG *CARDIOLOGY ONLY*on 66-27-7786PML ECG *CARDIOLOGY ONLY*[facility] [place] [address] Electrocardiograph Report Signed Patient: Cecilia Colón MR#: [id number] : 1945 Acct:[id number] Age/Sex: 79 / F ADM Date: 06/28/24 Loc: EKGCARD Room: Type: [facility] Attending Dr: Edmond Duarte MD Ordering Provider: [...] change was found Confirmed by Edmond Duarte ([id number]) on 06/29/2024 8:56:36 PM Referred By: Electronically Signed By: Edmond Duarte Transcribed By: MUS Signed By Edmond Duarte MD 06/29/242055[facility] Physician GroupXR CHEST 2 VIEWSon 84-84-0574OF CHEST 2 VIEWSXR CHEST 2 VIEWS Reason [...] interpreting Radiologist.NormalNot AvailableFPG ECG *PCP OFFICE ONLY*on 49-50-0817GUH ECG *PCP OFFICE ONLY*[facility] [place] [address] [place] [address] Electrocardiograph Report Signed Patient: Cecilia Colón MR#: [id number] : 1945 Acct:[id number] Age/Sex: 78 / F ADM Date: 03/30/24 Loc: EKGCAST Room: Type: [facility] Attending Dr: Tian Hall DO Ordering Provider: [...] ) Abnormal ECG Confirmed by Elaine Mcguire ([id number]) on 03/30/2024 1:07:40 PM Referred By: Electronically Signed By: Elaine Mcguire Transcribed By: MUS Signed By Elaine Mcguire MD [address] [place] [address] Physician SlcpdBcQ2v HPLC (Bld) [Mass fraction]on 04-51-6068CjK0e (Bld) [Mass fraction]Hemoglobin A1c/Hemoglobin.total in Blood by [facility]MM screening mammo BI w/CADon 11-92-1675HC screening mammo BI w/CAD[facility] [place] [address] Mammography Report Signed Patient: Cecilia Colón MR#: [id number] : 1945 Acct:[id number] Age/Sex: 78 / F ADM Date: 01/05/24 Loc: [place] Room: Type: [facility] Attending Dr: Referral Self Copies to: Tian [...] Naren Guzman M.D.01/05/2024 12:41 PM Dictation Location: [facility] Transcribed By: REINA 01/05/24 1241 Dictated By: Naren Guzman II, MD 01/05/24 1236 Signed By: 01/05/24 1241NoHighlands-Cash[facility] GrzhhX1V with Estimated Average Gluon 59-42-0204Gsqquci [Mass/Vol]140 mg/dLGainesville [facility] Physician GroupComment on above:Result Comment: PERFORMED BY: [place] [address] PATHOLOGIST [employer]MAT[employer] INSTRUCTOR ALISA NIELSEN M.D.Performed By: #### A1C WTH eA, CMP, TSH3, T4F, LIPID #### [place] [id number] USAAlanine aminotransferase [Enzymatic activity/volume] in Serum or PlasmaOrdered By: Tian Hall on 00-59-7810MQB [Catalytic activity/Vol] 12 U/LNormal7-52[facility] Healthcare SystemComment on above:Performed By: #### A1C WTH eA, CMP, TSH3, T4F, LIPID #### [facility] [address] [place], [place] [id number] USAAlbumin [Mass/volume] in Serum or Plasma by Bromocresol green (BCG) dye binding methoOrdered By: Tian Hall on 62-27-4471Ntinaqj BCG dye [Mass/Vol]4.2 g/dL3.5-5.7FNewark HospitalAlkaline phosphatase [Enzymatic activity/volume] in Serum or PlasmaOrdered By: Tian Hall on 28-55-4972BPL [Catalytic activity/Vol]65 U/MVhxdkl15-808CaqkmuwnwAcmc Healthcare SystemComment on above:Performed By: #### A1C WTH eA, CMP, TSH3, T4F, LIPID #### [facility] [address] [place], [place] [id number] USAAspartate aminotransferase [Enzymatic activity/volume] in Serum or PlasmaOrdered By: Tian Hall on 43-72-0812ZJT [Catalytic activity/Vol] 15 U/DUvhqsp19-89UmpftkykkAcmc Healthcare SystemComment on above:Performed By: #### A1C WTH eA, CMP, TSH3, T4F, LIPID #### [facility] [address] [place] [address] USABilirubin.total [Mass/volume] in Serum or PlasmaOrdered By: Tian Hall on 44-69-9560Ebzvydfzg [Mass/Vol]1.0 mg/dLNormal0.3-1.0[facility] Healthcare SystemComment on above:Performed By: #### A1C WTH eA, CMP, TSH3, T4F, LIPID #### [facility] [address] [place] [address] USACalcium [Mass/volume] in Serum or PlasmaOrdered By: Tian Hall on 88-04-5686Nnhqqsk [Mass/Vol]9.2 mg/dLNormal8.6-10.3FNewark HospitalComment on above:Performed By: #### A1C WTH eA, CMP, TSH3, T4F, LIPID #### [facility] [address] [place] [id number] USACarbon dioxide, total [Moles/volume] in Serum or Plasma Ordered By: Tian Hall on 74-33-5845JK5 [Moles/Vol]29.7 mmol/FVbghub52.0-31.0 [facility] SystemComment on above:Performed By: #### A1C WTH eA, CMP, TSH3, T4F, LIPID #### [facility] [address] [place] [address] USAChloride [Moles/volume] in Serum or PlasmaOrdered By: Tian Hall on 27-53-7240Vzpetxeq [Moles/Vol]97 mmol/LYwg69-180RfgkdyqbsAcmc Healthcare SystemComment on above:Performed By: #### A1C WTH eA, CMP, TSH3, T4F, LIPID #### [facility] [address] [place] [address] USACholesterol [Mass/volume] in Serum or PlasmaOrdered By: Tian Hall on 41-91-8415Gkfogfttarm [Mass/Vol]197 mg/rJHoqjmv899-214CxrameigoAcmc Healthcare SystemComment on above:Chol less than 200 mg/dl low riskChol 201-239 mg/dl borderline riskChol 240 mg/dl and greater high riskResult Comment: Chol less than 200 mg/dl low risk Chol 201-239 mg/dl borderline risk Chol 240 mg/dl and greater high riskPerformed By: #### A1C WTH eA, CMP, TSH3, T4F, LIPID #### [facility] [address] [place] [address] USACholesterol in LDL Calc [Mass/Vol]Ordered By: Tian Hall on 91-70-7649Drbjchhchgu in LDL [Mass/Vol]114 mg/dLHigh0-100[facility] Healthcare SystemComment on above:LDL ATP III CLASSIFICATIONLDL less than 100 mg/dL OptimalLDL 100-129 mg/dL Near or above rppmdxkPXZ486-190 mg/dL Borderline highLDL 160-189 mg/dL HighLDL greater than 189 mg/dL Very highCholesterol in VLDL Calc [Mass/Vol]Ordered By: Tian Hall on 04-31-2120Yefdounhfft in VLDL [Mass/Vol]22 mg/dLAcmc Healthcare SystemComprehensive Metabolic Panel on 21-83-8997Mwoxvil [Mass/Vol]4.2 g/dLNormal3.5-5.7The Firsthealth Physician GroupComment on above:Performed By: #### A1C WTH eA, CMP, TSH3, T4F, LIPID #### [facility] [address] [place] [address] USAGFR/1.73 sq M.predicted MDRD (S/P/Bld) [Vol rate/Area] mL/min/{1.73_m2}NormalThe Firsthealth Physician GroupComment on above:Performed By: #### A1C WTH eA, CMP, TSH3, T4F, LIPID #### [facility] [address] [place] [address] USACreatinine [Mass/volume] in Serum or PlasmaOrdered By: Tian Hall on 43-92-6636Eczrqpubmx [Mass/Vol]0.79 mg/dLNormal0.60-1.20[facility] Healthcare SystemComment on above:Performed By: #### A1C WTH Roxi, MAYITO, TSH3, T4F, LIPID #### [facility] [address] [place] [address] USAGlucose [Mass/volume] in Serum or PlasmaOrdered By: Tian Hall on 24-56-1800Fjbscga [Mass/Vol]111 mg/sOYrea09-232KrqtilbfrAcmc Healthcare SystemComment on above:ADA recommended reference rangeRandom Glucose Reference [...] WTH Roxi, MAYITO, TSH3, T4F, LIPID #### [facility] [address] [place] [address] USAGlucose mean value [Mass/volume] in Blood Estimated from glycated hemoglobinOrdered By: Tian Hall on 22-22-5064Tuoliwn glucose Estimated from glycated hemoglobin (Bld) [Mass/Vol]140 mg/dLAcmc Healthcare SystemHemoglobin A1c percentageOrdered By: Tian Hall on 38-34-7748FvP9n (Bld) [Mass fraction]6.5 %High4.3-5.6FNewark HospitalComment on above:Increased risk for diabetes: 5.7 - 6.4diabetes: >6.4glycemic control for adults with diabetes: <7.0Result Comment: Increased risk for diabetes: 5.7 - 6.4 diabetes: >6.4 glycemic control for adults with diabetes: <7.0Performed By: #### A1C WTH eA, CMP, TSH3, T4F, LIPID #### [facility] [address] [place] [address] USALipid Panelon 29-63-2976WKE Cholesterol,Ffnxehfels514 mg/dLHigh0-100The Firsthealth Physician GroupComment on above:Result Comment: LDL ATP III CLASSIFICATION LDL less than 100 mg/dL Optimal LDL 100-129 mg/dL Near or above optimal LDL 130-159 mg/dL Borderline high LDL 160-189 mg/dL High LDL greater than 189 mg/dL Very highPerformed By: #### A1C WTH eA, CMP, TSH3, T4F, LIPID #### [facility] [address] [place] [address] USATriglyceride w/Cxjdjz664 mg/dLNormal0-149[facility] Physician GroupComment on above:Result Comment: TRIG ATP III CLASSIFICATION TRIG less than 150 mg/dL Normal TRIG 150-199 mg/dL Borderline high TRIG 200-500 mg/dL High TRIG greater than 500 mg/dL Very high Standard traceable to the Center for Disease Conrtrol and Prevention (CDC) test method.Performed By: #### A1C WTH eA, CMP, TSH3, T4F, LIPID #### [facility] [address] [place] [address] USAVLDL XVMRMKCJGOK47 mg/dLNoHighlands-Cashiers Hospital Physician GroupComment on above:Performed By: #### A1C WTH eA, CMP, TSH3, T4F, LIPID #### [facility] [address] [place] [address] USANo Panel InformationOrdered By: Tian Hall on 12-22-2023 Estimated GFR (CKD-EPI)> 60.0 mL/MinAcmc Healthcare SystemPharmacy Creatinine Clearance (ChemN/[facility] HospitalPotassium [Moles/volume] in Serum or PlasmaOrdered By: Tian Hall on 19-72-5859Acluvjazh [Moles/Vol]4.1 mmol/LNormal3.5-5.1FNewark HospitalComment on above:Performed By: #### A1C WTH eA, CMP, TSH3, T4F, LIPID #### [facility] [address] [place] [address] USAProtein [Mass/volume] in Serum or PlasmaOrdered By: Tian Hall on 31-61-7333Kejxszf [Mass/Vol]6.6 g/dLNormal6.4-8.9A[facility] Healthcare SystemComment on above:Performed By: #### A1C WTH eA, CMP, TSH3, T4F, LIPID #### [facility] [address] [place] [phone] USASerum globulin measurement by calculation (mass/volume) Ordered By: Tian Hall on 99-02-4425Lxpbplef (S) [Mass/Vol]2.4 g/dLNoSt. Vincent HospitalComment on above:Performed By: #### A1C WTH eA, CMP, TSH3, T4F, LIPID #### [facility] [address] [place] [phone] USASerum or plasma albumin/globulin mass ratioOrdered By: Tian Hall on 86-07-2284Yraybst/Globulin [Mass ratio]1.8 {ratio}[facility] Cross HospitalComment on above:Performed By: #### A1C WTH eA, CMP, TSH3, T4F, LIPID #### [facility] [address] [place] [address] USASerum or plasma anion gap determinationOrdered By: Tian Hall on 37-15-1527Owxzi gap [Moles/Vol]10.4 mmol/LNormal6.0-15.0A[facility] Healthcare SystemComment on above:Performed By: #### A1C WTH eA, CMP, TSH3, T4F, LIPID #### [facility] [address] [place] [phone] USASerum or plasma high density lipoprotein (HDL) cholesterol measurementOrdered By: Tian Hall on 96-12-2126Jlconrqzwlm in HDL [Mass/Vol]60 mg/kMRrzsea38-23Gohzmx[address] [place], [place] [address]Comment on above:HDL CHOL ATP- III CLASSIFICATION Cardiovascular RiskHDL > or equal to 60 mg/dL LOWHDL < 40 mg/dL HIGHResult Comment: HDL CHOL ATP-III CLASSIFICATION Cardiovascular Risk HDL > or equal to 60 mg/dL LOW HDL < 40 mg/dL HIGHPerformed By: #### A1C WTH eA, CMP, TSH3, T4F, LIPID #### [facility] [address] [place] [phone] USASerum or plasma total cholesterol/high density lipoprotein (HDL) cholesterol mass ratOrdered By: Tian Hall on 12-22-2023 Cholesterol.total/Cholesterol in HDL [Mass ratio]3.3 {ratio}Normal<5.0Acmc Healthcare SystemComment on above:Performed By: #### A1C WTH eA, CMP, TSH3, T4F, LIPID #### [facility] [address] [place] [phone] USASodium [Moles/volume] in Serum or PlasmaOrdered By: Tian Hall on 41-79-4991Etrprp [Moles/Vol]133 mmol/MOmj276-085KmefvqgsgAcmc Healthcare SystemComment on above:Performed By: #### A1C WTH eA, CMP, TSH3, T4F, LIPID #### [facility] [address] [place] [address] USAThyrotropin [Units/volume] in Serum or PlasmaOrdered By: Tian Hall on 34-40-9325BMV Qn4.99 m[IU]/LNormal0.45-5.33A[facility]c Healthcare SystemComment on above:Result Comment: PERFORMED BY: [place] [address] PATHOLOGIST [employer] ALISA NIELSEN M.D.Performed By: #### A1C WT eA, CMP, TSH3, T4F, LIPID #### [facility] [address] [place] [phone] USAThyroxine (T4) free [Mass/volume] in Serum or Plasma Ordered By: Tian Hall on 82-51-2112Wrzn T4 [Mass/Vol]1.21 ng/dLHigh0.61-1.12 [facility] Healthcare SystemComment on above:Performed By: #### A1C WTH eA, CMP, TSH3, T4F, LIPID #### [facility] [address] [place] [address] USATriglyceride [Mass/volume] in Serum or PlasmaOrdered By: Tian Hall on 57-15-9416Odbtnwwivgfg [Mass/Vol]114 mg/dL0-149A[facility] Healthcare SystemComment on above:TRIG ATP III CLASSIFICATIONTRIG less than 150 mg/dL NormalTRIG 150-199 mg/dL Borderline highTRIG 200-500 mg/dL High TRIG greater than 500 mg/dL Very highStandard traceable to the Center for Disease Co nrtrol and Prevention (CDC) test method.Urea nitrogen [Mass/volume] in Serum or PlasmaOrdered By: Tian Hall on 75-89-1589Pqmy nitrogen [Mass/Vol]10 mg/dLNormal 10-12A[facility] Healthcare SystemComment on above:Performed By: #### A1C WTH eA, CMP, TSH3, T4F, LIPID #### [facility] [address] [place] [phone] USAOffice Visit (Cardiology)on 27-32-9752Syswfw-up visit Diagnoses/Problems Assessed Essential hypertension, benign (401.1) (I10) Hyperlipidemia (272.4) (E78.5) Diabetes mellitus with no complication (250.00) (E11.9) Overweight with body mass index (BMI) of 25 to 25.9 in adult (278.02,V85.21) (E66.3,Z68.25) Never a smoker Abnormal EKG (794.31) (R94.31) Orders Abnormal EKG IO EKG Electrocardiogram- 12 Lead; Status:Complete; Done: [id number] Essential hypertension, benign Start: hydroCHLOROthiazide 12.5 MG Oral Capsule; TAKE 1 CAPSULE ONCE DAILY Overweight with body mass index (BMI) of 25 to 25.9 in adult Healthy Weight Tips; Status:Complete - Retrospective Authorization; Done: [id number] Some eating tips that can help you lose weight.; Status:Complete - Retrospective Authorization; Done: [id number] SocHx: Never a smoker Tobacco Use Screening; Status:Complete; Done: [id number] Patient Instructions Please bring all medicines, vitamins, [...] negative for complaint. Vitals Vital Signs Recorded: 28Lpx9704 11:49AMRecorded: 60Wlg4208 11:48AM Klxxuetp652, RUE, Hzsysmq130, LUE, Sitting Lqpoewwqj38, RUE, Xzndhcm15, LUE, Sitting Heart Rate72, Apical Height5 ft 4 in Vwdmmr752 lb BMI Kxzxnynrew85.4 kg/m2 BSA Calculated1.72 Tobacco Useb) No PHQ-2 #1. Ov (more content not included)...NormalUH TouchworksTobacco Screening. on 11-80-3832Csjss depression screening assessmentNoMerged with [facility] [employer] 250 DO Work Phone: Fall risk assessmenta) No falls within the last year Merged with [facility] BoqiiSouthwest Healthcare Services HospitalShawn 250 DO Work Phone: Tobacco use status CPHSb) [facility] Boqii [employer] 250 DO Work Phone: Alanine aminotransferase [Enzymatic activity/volume] in Serum or PlasmaOrdered By: Tian Hall on 73-67-1192KPV [Catalytic activity/Vol]16 U/L7-52Acmc Healthcare SystemAlbumin [Mass/volume] in Serum or Plasma by Bromocresol green (BCG) dye binding methoOrdered By: Tian Hall on 51-40-5727Dwqtdzv BCG dye [Mass/Vol]4.1 g/dL3.5-5.7FNewark HospitalAlkaline phosphatase [Enzymatic activity/volume] in Serum or PlasmaOrdered By: Tian Hall on 73-93-7282LNC [Catalytic activity/Vol]55 U/L 34-104Acmc Healthcare SystemAspartate aminotransferase [Enzymatic activity/volume] in Serum or PlasmaOrdered By: Tian Hall on 12-18-4051GAH [Catalytic activity/Vol]19 U/U37-97WyclequqiAcmc Healthcare System Bilirubin.total [Mass/volume] in Serum or PlasmaOrdered By: Tian Hall on 18-01-7149Sowepfvjo [Mass/Vol]1.0 mg/dL0.3-1.0[facility] Calcium [Mass/volume] in Serum or PlasmaOrdered By: Tian Hall on 11-24-2022 Calcium [Mass/Vol]9.2 mg/dL8.6-10.3FNewark HospitalCarbon dioxide, total [Moles/volume] in Serum or PlasmaOrdered By: Tian Hall on 69-28-8531UU8 [Moles/Vol]31.3 mmol/L21.0-31.0[facility] Chloride [Moles/volume] in Serum or PlasmaOrdered By: Tian Hall on 11-24-2022 Chloride [Moles/Vol]102 mmol/I27-091PsmxkqcigAcmc Healthcare SystemCreatinine [Mass/volume] in Serum or PlasmaOrdered By: Tian Hall on 29-67-3821Safogwjzmg [Mass/Vol]0.71 mg/dL0.60-1.20[facility] Healthcare SystemGlobulin Calc (S) [Mass/Vol]Ordered By: Tian Hall on 00-50-3797Kgoekxin (S) [Mass/Vol]2.4 g/dL [facility] SystemGlucose [Mass/volume] in Serum or PlasmaOrdered By: Tian Hall on 11-63-5413Ixnsduk [Mass/Vol]104 mg/kV63-012JehqlpztrAcmc Healthcare SystemComment on above:ADA recommended reference rangeRandom Glucose Reference Range is dependent on time and content of last meal. Glucose of more than 200 mg/dL in a nonstressed, ambulatory subject supports the diagnosisof Diabetes Mellitus.Glucose mean value [Mass/volume] in Blood Estimated from glycated hemoglobinOrdered By: Tian Hall on 98-96-7467Rlewjyv glucose Estimated from glycated hemoglobin (Bld) [Mass/Vol]131 mg/dLAcmc Healthcare SystemHemoglobin A1c percentageOrdered By: Tian Hall on 19-10-2841EgD8s (Bld) [Mass fraction]6.2 %4.3-5.6FNewark HospitalComment on above: Increased risk for diabetes: 5.7 - 6.4diabetes: >6.4glycemic control for adults with diabetes: <7.0No Panel InformationOrdered By: Tian Hall on 11-24-2022 Estimated GFR (CKD-EPI)> 60.0 mL/MinAcmc Healthcare SystemPharmacy Creatinine Clearance (ChemN/AFNewark HospitalPotassium [Moles/volume] in Serum or PlasmaOrdered By: Tian Hall on 43-00-3935Bnmbuzbia [Moles/Vol]4.5 mmol/L3.5-5.1FNewark HospitalProtein [Mass/volume] in Serum or PlasmaOrdered By: Tian Hall on 68-51-9213Nrjkkiu [Mass/Vol]6.5 g/dL6.4-8.9[facility] for Rehabilitationerum or plasma albumin/globulin mass ratioOrdered By: Tian Hall on 04-93-9400Hbjvubl/Globulin [Mass ratio]1.7 {ratio}[facility] for Rehabilitationerum or plasma anion gap determinationOrdered By: Tian Hall on 21-23-2300Eseri gap [Moles/Vol]10.2 mmol/L6.0-15.0[facility] for Rehabilitationodium [Moles/volume] in Serum or PlasmaOrdered By: Tian Hall on 80-85-4091Sfxqey [Moles/Vol]139 mmol/I780-384 [facility] Healthcare SystemThyrotropin [Units/volume] in Serum or Plasma Ordered By: Tian Hall on 23-58-8866JLW Qn6.76 m[IU]/L0.45-5.33[facility] Healthcare SystemThyroxine (T4) free [Mass/volume] in Serum or Plasma Ordered By: Tian Hall on 98-46-4200Jyae T4 [Mass/Vol]0.95 ng/dL0.61-1.12 [facility] Healthcare SystemUrea nitrogen [Mass/volume] in Serum or Plasma Ordered By: Tian Hall on 31-08-0979Jdqm nitrogen [Mass/Vol]8 mg/dL7-25[facility] Healthcare SystemAlbumin [Mass/volume] in Serum or PlasmaOrdered By: Tian Hall on 94-57-5007Mrvjudd [Mass/Vol]3.7 g/dL3.2-5.5FNewark HospitalAlkaline phosphatase [Enzymatic activity/volume] in Serum or PlasmaOrdered By: Tian Hall on 67-76-9303OWA [Catalytic activity/Vol]61 U/L 32-92A[facility] Healthcare SystemAspartate aminotransferase [Enzymatic activity/volume] in Serum or PlasmaOrdered By: Tian Hall on 22-95-2697KRL [Catalytic activity/Vol]15 U/G64-47GtiakbnezAcmc Healthcare SystemBasophils Auto (Bld) [#/Vol]Ordered By: Tian Hall on 42-09-7572Pjmyfaddi (Bld) [#/Vol]0.1 10*3/uL0.0-0.2FNewark HospitalBasophils/100 WBC Auto (Bld) Ordered By: Tian Hall on 62-95-5585Tvnvgtisn/100 WBC (Bld)0.6 %.[facility] Healthcare SystemBilirubin.total [Mass/volume] in Serum or PlasmaOrdered By: Tian Hall on 88-65-4520Xdbrjzmfm [Mass/Vol]1.0 mg/dL0.3-1.2FNewark HospitalCalcium [Mass/volume] in Serum or PlasmaOrdered By: Tian Hall on 72-61-4393Qyjurgs [Mass/Vol]8.9 mg/dL8.2-10.2FNewark HospitalCarbon dioxide, total [Moles/volume] in Serum or PlasmaOrdered By: Tian Hall on 54-47-3515MD5 [Moles/Vol]30.1 mmol/L22.0-30.0[facility] Healthcare SystemChloride [Moles/volume] in Serum or PlasmaOrdered By: Tian Hall on 76-88-8993Pgzidigd [Moles/Vol]98 mmol/W94-081YpckaxjdhAcmc Healthcare System Cholesterol [Mass/volume] in Serum or PlasmaOrdered By: Tian Hall on 05-17-2022 Cholesterol [Mass/Vol]213 mg/uN209-808PgdwuvtgpAcmc Healthcare SystemComment on above:Chol less than 200 mg/dl low riskChol 201-239 mg/dl borderline riskChol 240 mg/dl and greater high riskCholesterol in LDL Calc [Mass/Vol]Ordered By: Tian Hall on 97-32-7757Bewytaottkk in LDL [Mass/Vol]118 mg/dL0-100[facility] Healthcare SystemComment on above:LDL ATP III CLASSIFICATIONLDL less than 100 mg/dL OptimalLDL 100-129 mg/dL Near or above btfljzbTQX830-282 mg/dL Borderline highLDL 160-189 mg/dL HighLDL greater than 189 mg/dL Very high Cholesterol in VLDL Calc [Mass/Vol]Ordered By: Tian Hall on 05-17-2022 Cholesterol in VLDL [Mass/Vol]38 mg/dLAcmc Healthcare System Creatinine and Glomerular filtration rate.predicted panel (S/P/Bld)Ordered By: Tian Hall on 53-92-5367Dgigtpxhye [Mass/Vol]0.70 mg/dL0.44-1.03A[facility] Healthcare SystemEosinophils Auto (Bld) [#/Vol]Ordered By: Tian Hall on 64-30-8157Pndexlqgoyl (Bld) [#/Vol]0.3 10*3/uL0.0-0.45A[facility] Healthcare SystemEosinophils/100 WBC Auto (Bld)Ordered By: Tian Hall on 05-17-2022 Eosinophils/100 WBC (Bld)3.2 %.[facility] Healthcare SystemErythrocyte distribution width Auto (RBC) [Ratio]Ordered By: Tian Hall on 05-17-2022 Erythrocyte distribution width (RBC) [Ratio]13.4 %11.9-15.3FNewark HospitalEstimated glomerular filtration rate (GFR) non- Ordered By: Tian Hall on 61-41-4128CSF/1.73 sq M.predicted among non-blacks MDRD (S/P/Bld) [Vol rate/Area]> 60 mL/MinAcmc Healthcare System Globulin Calc (S) [Mass/Vol]Ordered By: Tian Hall on 55-81-3969Bzgoyvxh (S) [Mass/Vol]2.2 g/dLAcmc Healthcare SystemGlucose [Mass/volume] in Serum or PlasmaOrdered By: Tian Hall on 38-09-3152Qbqzhws [Mass/Vol]101 mg/dL 70-100A[facility] Healthcare SystemComment on above:ADA recommended reference rangeRandom Glucose Reference Range is dependent on time and content of last meal. Glucose of more than 200 mg/dL in a nonstressed, ambulatory subject supports the diagnosisof Diabetes Mellitus.Glucose mean value [Mass/volume] in Blood Estimated from glycated hemoglobinOrdered By: Tian Hall on 31-04-6901Oxchbrp glucose Estimated from glycated hemoglobin (Bld) [Mass/Vol] 143 mg/dLAcmc Healthcare SystemHematocrit Auto (Bld) [Volume fraction]Ordered By: Tian Hall on 76-16-3147Zargirwfhe (Bld) [Volume fraction] 38.7 %34.0-46.4FNewark HospitalHemoglobin A1c percentageOrdered By: Tian Hall on 92-35-9859ToT6c (Bld) [Mass fraction]6.6 %4.3-5.6FNewark HospitalComment on above:Increased risk for diabetes: 5.7 - 6.4diabetes: >6.4glycemic control for adults with diabetes: <7.0Hemoglobin [Mass/volume] in BloodOrdered By: Tian Hall on 36-47-6661Pfwkzboiwh (Bld) [Mass/Vol]12.9 g/dL11.8-15.4FNewark HospitalLeukocytes [#/volume] corrected for nucleated erythrocytes in Blood by Automated coun Ordered By: Tian Hall on 17-80-3532EKT corrected for nucl RBC Auto (Bld) [#/Vol]9.7 10*3/uL3.8-11.6FNewark HospitalLymphocytes Auto (Bld) [#/Vol]Ordered By: Tian Hall on 09-69-6457Sjqohqmxgsb (Bld) [#/Vol]2.7 10*3/uL1.00-4.8A[facility] Healthcare SystemLymphocytes/100 WBC Auto (Bld) Ordered By: Tian Hall on 49-39-2934Sigmaeuleis/100 WBC (Bld)27.7 %.[facility] HospitalH Auto (RBC) [Entitic mass]Ordered By: Tian Hall on 27-94-2612NEG (RBC) [Entitic mass]29.8 pg24.7-34.3FNewark HospitalMCHC Auto (RBC) [Mass/Vol]Ordered By: Tian Hall on 18-75-3437ZFSP (RBC) [Mass/Vol]33.3 g/dL32.0-35.0[facility] SystemMCV Auto (RBC) [Entitic vol]Ordered By: Tian Hall on 60-60-4774NLD (RBC) [Entitic vol]89.5 fL 80-100[facility] SystemMonocytes Auto (Bld) [#/Vol]Ordered By: Tian Hall on 73-69-8639Ilyspztcc (Bld) [#/Vol]0.7 10*3/uL0.0-0.8[facility] Healthcare SystemMonocytes/100 WBC Auto (Bld)Ordered By: Tian Hall on 78-64-1630Dlfpuogkt/100 WBC (Bld)7.7 %.[facility] Neutrophils Auto (Bld) [#/Vol]Ordered By: Tian Hall on 41-02-5495Jqcdrplxyro (Bld) [#/Vol]5.9 10*3/uL1.8-7.7FNewark HospitalNeutrophils/100 WBC Auto (Bld)Ordered By: Tian Hall on 89-57-4412Yjoeyyoejib/100 WBC (Bld)60.8 %.[facility] SystemNo Panel InformationOrdered By: Tian Hall on 83-62-0176Pfasaopyi GFR ()> 60 mL/MinAcmc Healthcare SystemComment on above:GFR estimated reference range: According to KDOQI guidelines, <60 ml/min/1.73m2 is sufficient todiagnose a patient with chronic kidney disease.Pharmacy Creatinine Clearance (ChemN/AFNewark HospitalNucleated erythrocytes [Presence] in Blood by Automated countOrdered By: Tian Hall on 57-86-4893Pchtacegm RBC Auto Ql (Bld)0.0 /100{WBC}0-0.5FNewark HospitalPlatelet mean volume Auto (Bld) [Entitic vol]Ordered By: Tian Hall on 35-02-0964Yivcxxrn mean volume (Bld) [Entitic vol]6.9 fL6.3-10.7 [facility] Healthcare SystemPlatelets Auto (Bld) [#/Vol]Ordered By: Tian Hall on 85-93-1744Xifxhvpnm (Bld) [#/Vol]359 10*3/pH376-147FnfdfksluAcmc Healthcare SystemPotassium [Moles/volume] in Serum or PlasmaOrdered By: Tian Hall on 56-39-5475Fmnawqbpi [Moles/Vol]4.2 mmol/L3.5-5.1FNewark HospitalProtein [Mass/volume] in Serum or PlasmaOrdered By: Tian Hall on 57-27-1306Yzginnl [Mass/Vol]5.9 g/dL6.1-7.9[facility] SystemRBC Auto (Bld) [#/Vol]Ordered By: Tian Hall on 20-17-5292PTE (Bld) [#/Vol]4.32 10*6/uL3.60-5.00[facility] for Rehabilitationerum or plasma alanine aminotransferase measurement without P-5'-P (enzymatic activiOrdered By: Tian Hall on 50-20-3394BCK No additional P-5'-P [Catalytic activity/Vol]19 U/L10-60 [facility] Rehabilitationerum or plasma albumin/globulin mass ratio Ordered By: Tian Hall on 91-50-5064Voyffwt/Globulin [Mass ratio]1.7 {ratio} [facility] for Rehabilitationerum or plasma anion gap determinationOrdered By: Tian Hall on 33-99-0703Bgfsh gap [Moles/Vol]10.1 mmol/L6.0-15.0[facility] Rehabilitationerum or plasma high density lipoprotein (HDL) cholesterol measurementOrdered By: Tian Hall on 99-20-3588Tznfvwfjuyz in HDL [Mass/Vol]56 mg/oE14-55AzuthmdenAcmc Healthcare SystemComment on above:HDL CHOL ATP-III CLASSIFICATION Cardiovascular RiskHDL > or equal to 60 mg/dL LOWHDL < 40 mg/dL HIGHSerum or plasma total cholesterol/high density lipoprotein (HDL) cholesterol mass ratOrdered By: Tian Hall on 05-17-2022 Cholesterol.total/Cholesterol in HDL [Mass ratio]3.8 {ratio}<5.0[facility] for Rehabilitationodium [Moles/volume] in Serum or PlasmaOrdered By: Tian Hall on 17-96-0868Soqmmr [Moles/Vol]134 mmol/C859-203OfumckzshAcmc Healthcare SystemTSH DL <= 0.005 mIU/L QnOrdered By: Tian Hall on 03-69-0043SJL Qn5.68 m[IU]/L0.45-5.33[facility] SystemThyroxine (T4) free [Mass/volume] in Serum or PlasmaOrdered By: Tian Hall on 21-39-1329Xzio T4 [Mass/Vol]1.31 ng/dL0.61-1.12[facility] SystemTriglyceride [Mass/volume] in Serum or PlasmaOrdered By: Tian Hall on 22-17-9485Knkztaukrvkw [Mass/Vol]193 mg/wW83-111UboxlihflAcmc Healthcare SystemComment on above:TRIG ATP III CLASSIFICATIONTRIG less than 150 mg/dL NormalTRIG 150-199 mg/dL Borderline highTRIG 200-500 mg/dL High TRIG greater than 500 mg/dL Very highStandard traceable to the Center for Disease Conrtrol and Prevention (CDC) test method.Urea nitrogen [Mass/volume] in Serum or PlasmaOrdered By: Tian Hall on 61-47-1985Mvzr nitrogen [Mass/Vol]11 mg/dL9-23[facility] SystemWBC Auto (Bld) [#/Vol]Ordered By: Tian Hall on 83-74-6077QVV (Bld) [#/Vol]9.7 10*3/uL3.8-11.6FNewark HospitalCOVID + FLU Quick Testingon 44-12-6938CBBQ-CoV-2 (COVID-19) RNA HAN+probe Ql (Unsp spec)Negative [facility] Other COVID + FLU Quick TestingNegativeFranc[facility] Health [facility] Other RSVon 16-47-1895OKT Ag IA Ql (Unsp spec)PositiveFranciscan Health [facility] Other COVID Quick Testingon 16-18-2658MwewfhMcvbwgkaScayp Coast [facility] Other HbA1c (Bld) [Mass fraction]on 23-69-1199S3V HEMOGLOBIN 6.0NoWernersville State Hospital [facility] Other A1C HEMOGLOBINNoWernersville State Hospital [facility] Other Vital Signs Date TimeVital SignValuePerforming AhdapppykSgqqajkr74-47-7599 13:50-0400Heart rate78 /minTian Hall DO Work Phone: [facility]08-07-2025 13:29-0400 Body anuazy598.02 cmTian Suzan DO Work Phone: [facility]08-07-2025 13:29-0400 Body mass index (BMI) [Ratio]28.1 kg/l7Outqg Suzan DO Work Phone: [facility]08-07-2025 13:29-0400 Body kvgkxaxqday22.4 [degF]Tian Hall DO Work Phone: [facility]08-07-2025 13:29-0400 Body sewxhy85.12 kgJosekenrick Santizochanning DO Work Phone: [facility]08-07-2025 13:29-0400 Diastolic blood zhdjbamy51 mm[Hg]Tian Hall DO Work Phone: [facility]08-07-2025 13:29-0400 Heart ghbr886 /minTian Hall DO Work Phone: [facility]08-07-2025 13:29-0400 Respiratory rate18 /minTian Santizos DO Work Phone: [facility]08-07-2025 13:29-0400 SaO2% (BldA) [Mass fraction]96 %Tian Santizos DO Work Phone: [facility]08-07-2025 13:29-0400 Systolic blood hflridec818 mm[Hg]Tian Santizos DO Work Phone: [phone]05-20-2025 09:09-0400 Body zgauea417.02 cmTian Hall DO Work Phone: [phone]05-20-2025 09:09-0400 Body mass index (BMI) [Ratio]28.1 kg/l3KrvdgTian Santizos DO Work Phone: [phone]05-20-2025 09:09-0400 Body zgfgyz41.12 kgTian Santizos DO Work Phone: [phone]05-20-2025 09:09-0400 Diastolic blood chtzjyoj10 mm[Hg]Tian Santizos DO Work Phone: [phone]05-20-2025 09:09-0400 Heart rate74 /minTian Santizos DO Work Phone: [facility]05-20-2025 09:09-0400 Respiratory rate18 /minTian Santizos DO Work Phone: [phone] [place], [place] [address]05-20-2025 09:09-0400 SaO2% (BldA) [Mass fraction]98 %Tian Santizos DO Work Phone: [facility]05-20-2025 09:09-0400 Systolic blood qomvnbww708 mm[Hg]Tian Santizos DO Work Phone: [phone] [place], [place] [address]04-10-2025 09:07-0400 Body mgtnte532.02 cmTian Hall DO Work Phone: [facility]04-10-2025 09:07-0400 Body mass index (BMI) [Ratio]28.1 kg/z4UrsgzTian Hall DO Work Phone: [facility]04-10-2025 09:07-0400 Body .12 kgTian Hall DO Work Phone: [facility]04-10-2025 09:07-0400 Diastolic blood gnzvjwit62 mm[Hg]Tian Hall DO Work Phone: [facility]04-10-2025 09:07-0400 Heart rate79 /Rikki Hall DO Work Phone: [facility]04-10-2025 09:07-0400 Respiratory rate18 /Rikki Hall DO Work Phone: [facility]04-10-2025 09:07-0400 SaO2% (BldA) [Mass fraction]98 %Tian Hall DO Work Phone: [facility]04-10-2025 09:07-0400 Systolic blood dvfioupa699 mm[Hg]Tian Hall DO Work Phone: [facility]03-17-2025 09:49-0400 Body ipnsok104.02 cmAcmc Healthcare System03-17-2025 09:49-0400Body mass index (BMI) [Ratio]28.5 kg/a3KvvhgwshcAcmc Healthcare System03-17-2025 09:49-0400Body .02 kgAcmc Healthcare System03-17-2025 09:49-0400Diastolic blood bbejezkf47 mm[Hg][facility] 06-04-2024 09:49-0400Heart rate72 /minAcmc Healthcare System 06-04-2024 09:49-0561DbY6% (BldA) [Mass fraction]97 %[facility]03-17-2025 09:49-0400Systolic blood hwexxbih066 mm[Hg][facility]01-10-2025 09:10-0500Body lfruiu948.02 cmTian Hall DO Work Phone: [facility]01-10-2025 09:10-0500 Body mass index (BMI) [Ratio]28.1 kg/h2VnyikTian Santizos DO Work Phone: [facility]01-10-2025 09:10-0500 Body carkaf48.12 kgTian Santizos DO Work Phone: [facility]01-10-2025 09:10-0500 Diastolic blood puldfamp53 mm[Hg]Tian Santizos DO Work Phone: [facility]01-10-2025 09:10-0500 Heart rate69 /minTian Santizos DO Work Phone: [facility]01-10-2025 09:10-0500 Respiratory rate16 /minTian Hall DO Work Phone: [facility]01-10-2025 09:10-0500 SaO2% (BldA) [Mass fraction]96 %Tian Hall DO Work Phone: [facility]01-10-2025 09:10-0500 Systolic blood iziiuhxt471 mm[Hg]Tian Santizos DO Work Phone: [facility]04-03-2024 08:47-0400 Body dnwyso500.02 cmA[facility]04-03-2024 08:47-0400Body mass index (BMI) [Ratio]26.9 kg/f8FztgmigjqAcmc [facility] 08:47-0400Body nunetp65.94 kg[facility]04[facility] 08:47-0400Diastolic blood uvzaerjy17 mm[Hg][facility] 06-22-2023 08:47-0400Heart rate71 /[facility] 06-22-2023 08:47-0400Respiratory rate18 /[facility] 06-22-2023 08:47-1878HtA5% (BldA) [Mass fraction]96 %[facility]04-03-2024 08:47-0400Systolic blood ndbrfyqw369 mm[Hg][facility]11-02-2023 16:00-0400Body insxeb839.02 cmTian Hall Other [employer] Other 11-02-2023 16:00-0400Body mass index (BMI) [Ratio] 26.57 kg/z1CkkzuTian Hall Other [employer] Other 11-02-2023 16:00-0400Body wxlboj86.04 kgTian Hall Other [employer] Other 11-02-2023 16:00-0400Diastolic blood wzedqaje40 mm[Hg] Tian Hall Other [employer] Other 11-02-2023 16:00-0400Respiratory rate16 /Rikki Hall Other [employer] Other 11-02-2023 16:00-0829VuV0% (BldA) [Mass fraction]98 % Tian Hall Other [employer] Other 11-02-2023 16:00-0400Systolic blood cnamizjq775 mm[Hg] Tian Hall Other [employer] Other 09-25-2023 11:49-0400Diastolic blood vyhtaiby01 mm[Hg] Tian Hall Work Phone: 1(261) [phone]-Hxqka [facility] DO Work Phone: 1(667) [phone] 11:49-0400Systolic blood mm[Hg] Tian Hall Work Phone: 1(617) [phone]-Mnvna [facility] DO Work Phone: 1(538) 677-208409-25-2023 11:48-0400Body hnaymt570.56 cmTian Hall Work Phone: 1(650) [phone]-Ifwuw [facility] DO Work Phone: 1(570) 678-298209-25-2023 11:48-0400Body mass index (BMI) [Ratio]25.4 kg/i0MhcecTian Hall Work Phone: 1(986) [phone]-[facility]kiflFair[facility] 250 DO Work Phone: 1(128) 737-325809-25-2023 11:48-0400Body surface area Derived from formula1.72 x1AuuqzTian Hall Work Phone: 1(953) [phone]-PtmrxFairmont [facility] and [facility] 250 DO Work Phone: 1(833) [phone] 11:48-0400Body variny79.13 kgTian Hall Work Phone: 1(224) [phone]-ClgmtFairmont [facility] and [facility] 250 DO Work Phone: 1(690) 103-428509-25-2023 11:48-0400Diastolic blood iefyptyb01 mm[Hg] Tian Hall Work Phone: 1(937) [phone]-Hlyix [facility] DO Work Phone: 1(904) [phone] 11:48-0400Heart rate72 /minTian Hall Work Phone: 1(105) [phone]-Xvpie [facility] DO Work Phone: 1(985) 140-650509-25-2023 11:48-0400Systolic blood qbtwmydc074 mm[Hg] Tian Hall Work Phone: 1(574) [phone]-Mdfmn [facility] DO Work Phone: 1(855) 636-674109-13-2023 08:45-0400Body vxwown098.02 cmJosekenrick Suzan Other [employer] Other 09-13-2023 08:45-0400Body mass index (BMI) [Ratio] 26.53 kg/x9JzkthTian Hall Other [employer] Other 09-13-2023 08:45-0400Body qwaapq28.95 kgTian Hall Other [employer] Other 09-13-2023 08:45-0400Diastolic blood pwuhgdmm82 mm[Hg] Tian Hall Other [employer] Other 09-13-2023 08:45-0400Respiratory rate16 /minTian Hall Other [employer] Other 09-13-2023 08:45-7915TcQ9% (BldA) [Mass fraction]98 % Tian Hall Other [employer] Other 09-13-2023 08:45-0400Systolic blood mm[Hg] Tian Hall Other [employer] Other 03-13-2023 10:00-0400Body .02 cmTian Hall Other [employer] Other 03-13-2023 10:00-0400Body mass index (BMI) [Ratio] 26.04 kg/n4YfabrTian Hall Other [employer] Other 03-13-2023 10:00-0400Body watzca50.68 kgTian Hall Other [employer] Other 03-13-2023 10:00-0400Diastolic blood bquozued19 mm[Hg] Tian Santizochanning Other [employer] Other 03-13-2023 10:00-0400Respiratory rate16 /minJosekenrick Santizochanning Other [employer] Other 03-13-2023 10:00-7555LnS1% (BldA) [Mass fraction]99 % Tian Sukhdevchanning Other [employer] Other 03-13-2023 10:00-0400Systolic blood twurvzly296 mm[Hg] Tian Hall Other [employer] Other 11-30-2022 11:30-0500Body tmojrm616.02 cmJosekenrick Santizochanning Other [employer] Other 11-30-2022 11:30-0500Body mass index (BMI) [Ratio] 26.21 kg/w2Zptjh Sukhdevchanning Other [employer] Other 11-30-2022 11:30-0500Body zvggbo14.13 kgJosekenrick Hall Other [employer] Other 11-30-2022 11:30-0500Diastolic blood exvfowfy74 mm[Hg] Tian Hall Other [employer] Other 11-30-2022 11:30-0500Respiratory rate16 /minTian Hall Other [employer] Other 11-30-2022 11:30-2984KlY6% (BldA) [Mass fraction]99 % Tian Hall Other [employer] Other 11-30-2022 11:30-0500Systolic blood tiwnsoho584 mm[Hg] Tian Hall Other [employer] Other 08-02-2022 15:00-0400Body .02 cmTian Hall Other [employer] Other 08-02-2022 15:00-0400Body mass index (BMI) [Ratio] 26.57 kg/n4MnahkTian Hall Other [employer] Other 08-02-2022 15:00-0400Body xvokhdkcnkp891.4 [degF]Tian Hall Other [employer] Other 08-02-2022 15:00-0400Body ttijmr98.04 kgTian Santizochanning Other [employer] Other 08-02-2022 15:00-0400Diastolic blood rqqwuooz36 mm[Hg] Tian Hall Other [employer] Other 08-02-2022 15:00-0400Respiratory rate18 /minTian Hall Other [employer] Other 08-02-2022 15:00-5681KsE8% (BldA) [Mass fraction]96 % Tian Hall Other [employer] Other 08-02-2022 15:00-0400Systolic blood cfwojbtm193 mm[Hg] Tian Suzan Other [employer] Other 03-30-2022 10:15-0400Body .02 cmJosekenrick Santizochanning Other [employer] Other 03-30-2022 10:15-0400Body mass index (BMI) [Ratio] 26.21 kg/k1Pdmyo Kunchanning Other [employer] Other 03-30-2022 10:15-0400Body rpdmoq24.13 kgJosekenrick Hall Other [employer] Other 03-30-2022 10:15-0400Diastolic blood gnqryjpo04 mm[Hg] Tian Hall Other [employer] Other 03-30-2022 10:15-0400Respiratory rate16 /minTian Hall Other [employer] Other 03-30-2022 10:15-3771LyD7% (BldA) [Mass fraction]96 % Tian Hall Other [employer] Other 03-30-2022 10:15-0400Systolic blood mmucvcji316 mm[Hg] Tian Hall Other [employer] Other 09-29-2021 09:30-0400Body gfaowl284.02 cmTian Sukhdevchanning Other [employer] Other 09-29-2021 09:30-0400Body mass index (BMI) [Ratio] 26.21 kg/x8RvgrpTian Hall Other [employer] Other 09-29-2021 09:30-0400Body .13 kgJosekenrick Suzan Other [employer] Other 09-29-2021 09:30-0400Diastolic blood dapsvjqn08 mm[Hg] Tian Hall Other [employer] Other 09-29-2021 09:30-0400Respiratory rate16 /minTian Hall Other [employer] Other 09-29-2021 09:30-4660QlY3% (BldA) [Mass fraction]97 % Tian Hall Other [employer] Other 09-29-2021 09:30-0400Systolic blood hlekhjmk318 mm[Hg] Tian Hall Other [employer] Other Encounters Encounter DateEncounter TypeCare ProviderFacilityStart: 10-29-2024 End: 24-41-8309lbhyecqnfaCkcky Kuns DO Work Phone: [facility] Work Phone: Start: 10-29-2024 End: 40-66-4045Bfdhmji encounter procedureTian Hall P DO-[facility] Work Phone: Start: 10-25-2024 End: 57-04-5199kcaxjjrzofUghox Kuns DO Work Phone: [facility] Work Phone: Start: 10-25-2024 End: 21-16-5705Suseiwa encounter procedurePayuri Chapman TELECOMMUNICATIONS SALES REPRESENTATIVE-[facility] Work Phone: Start: 08-07-2024 End: 09-77-7143Nkiqmvp encounter procedureEdmond Duarte MD-[facility] Work Phone: Start: 06-28-2024 End: 99-61-5952byfrllcdncWvkak Kuns DO Work Phone: [facility] Work Phone: Start: 06-28-2024 End: 60-31-6090Wunvtfz encounter procedureBrykenrick Hall DO Work Phone: [facility] Work Phone: Start: 06-12-2024 End: 95-18-9247nrurwniffkEFSRH P KUNSNot AvailableStart: 06-04-2024 End: 29-50-3246qggpnteyylUnwyyvdtwParkview Health [facility] Work Phone: Start: 06-04-2024 End: 79-12-6564Arkpptt encounter procedureElpidioriverside [facility] Work Phone: Start: 03-30-2024 End: 48-78-1291syqpvzslsvFvqzo KunsFacility:[facility] Start: 32-62-3130Zsy-patient / Non-visitBrykenrick Hall DO Work Phone: [facility] Work Phone: Start: 27-76-7533Trxcclx encounter procedureBrykenrick Hall DO Work Phone: [facility] Family Medicine [place]Start: 03-30-2024 End: 97-97-7271jgyktjmlauGovpi Sukhdevs DO Work Phone: [facility] Work Phone: Start: 03-30-2024 End: 61-33-3622Szphufn encounter procedureBrykenrick Santizos DO Work Phone: [facility] Work Phone: Start: 01-05-2024 End: 58-83-4254Pvjlfjx encounter procedureDO Tian Hall Work Phone: [facility] Work Phone: Start: 01-05-2024 End: 26-96-4744yjthjchjtjDQ Tian Hall Work Phone: [facility] Work Phone: Start: 12-22-2023 End: 85-86-1405Fzfsonh encounter Aliya Hall Work Phone: [facility] [place] Work Phone: Start: 12-22-2023 End: 27-90-9294tdekjpxaorYU Bryan Kuns Work Phone: [facility] Work Phone: Start: 06-22-2023 End: 14-09-4900laeowjxawyJmbngkxteParkview Health [facility] Work Phone: Start: 06-22-2023 End: 79-21-0056Cyfjifb encounter [facility] [place] Work Phone: Start: 03-29-2023 End: 71-15-5081covywozodpMoiml Kuns Other [employer] Other Start: 48-16-9897Ygehmmtdt encounterTian HallFPG [facility] [place]Start: 01-21-2023 End: 85-92-6751frujgtghcwPO Bryan Kuns Work Phone: [facility] Work Phone: Start: 01-21-2023 End: 62-12-9528Jxepcckl ReferredDO Tian Hall Work Phone: [facility] [place] Work Phone: Start: 01-20-2023 End: 20-75-1140uuhfyobsvcQjlrp Kuns Other [employer] Other Start: 68-84-6585Fgxhhq outpatient visit 15 minutes Tian Villafuerte [facility] [place]Start: 01-03-2023 End: 49-69-2554cqswoanatrOrchm Kuns Other [employer] Other Start: 85-65-7430Chpqhoiwv encounterTian Villafuerte [facility] [place]Start: 12-30-2022 End: 89-42-4755omdoypqddeAenji Kuns Other [facility] [employer] Other Start: 72-26-8714Xhutjoigt encounterTian SantizoDianneTammy [facility] [place]Start: 12-20-2022 End: 11-68-2689nuhhrwclpvEJ Bryan Kuns Work Phone: [facility] Work Phone: Start: 12-20-2022 End: 62-24-9571Mnybxor encounter procedureDO Tian Hall Work Phone: [facility] Work Phone: Start: 14-92-3864gqjschrxctFzulatoryDr. Tian Hall Facility:[id number]: 19-09-1265Egizbn consultation new/estab patient 60 minTian Hall Work Phone: [phone]-Ntvvj [facility] DO Work Phone: Start: 12-01-2022 End: 70-23-1652ntszolauqxUjann Kuns Other [employer] Other Start: 53-13-5999Mhalcsv encounter procedureTian Hall [facility] Family Medicine [place]Start: 11-24-2022 End: 12-55-0724dfxpchargdPP Tian Hall Work Phone: [facility] Work Phone: Start: 11-24-2022 End: 11-05-0841Rlzuify encounter procedureDO Tian Hall Work Phone: [facility] [place] Work Phone: Start: 09-28-2022 End: 63-86-4155esqtcbzvphPwucy Kuns Other [employer] Other Start: 89-24-2737Ckdtvtyjz encounterJosekenrick HallFPG [facility] [place]Start: 09-01-2022 End: 06-21-7129utsrbrbatzWcimz Kuns Other [employer] Other Start: 67-03-7183Zmoquwdni encounterBrykenrick HallFPG [facility] [place]Start: 07-01-2022 End: 52-74-5748gumbwncgnaIuswi Kuns Other [employer] Other Start: 97-43-9483Hgstbqtgl encounterBrykenrick HallFPG [facility] [place]Start: 05-31-2022 End: 61-29-6571giwxffddbiFdpbf Kuns Other [employer] Other Start: 82-24-9313Yfnpai outpatient visit 25 minutes Tian SukhdevchanningG Family [facility] [place]Start: 05-17-2022 End: 01-33-4160cpdlichqfbDI Bryan Kuns Work Phone: [facility] Work Phone: Start: 05-17-2022 End: 94-51-3430Kcquxzq encounter procedureDO Tiankenrick Hall Work Phone: [facility] [place] Work Phone: Start: 05-10-2022 End: 96-42-9155vyaeviqdgyVapiw Kuns Other [employer] Other Start: 11-90-0094Rgpyadihe encounterBrykenrick Villafuerte [facility] [place]Start: 05-04-2022 End: 08-15-0038uhaezktirkJjfxd Kuns Other [employer] Other Start: 59-39-7381Etjiosw evaluation of patient and reportTian SuzanFPTammy [facility] [place]Start: 02-22-2022 End: 74-53-2207snbwqheudjDbnkh Kuns Other [employer] Other Start: 72-96-9813Pxmrtvsjj encounterJosekenrick Villafuerte [facility] [place]Start: 02-17-2022 End: 17-05-8027ngbagilpldQmckc Kuns Other [employer] Other Start: 34-13-1082Jvzapg outpatient visit 25 minutes Tian SantizoJose [facility] [place]Start: 12-21-2021 End: 73-03-5794agmyugtqahKursv Kuns Other [employer] Other Start: 08-11-3921Sqrsshtll encounterBrykenrick Villafuerte [facility] [place]Start: 10-20-2021 End: 78-84-4904xsaxxtqqpbWzmrt Kuns Other [employer] Other Start: 97-14-4954Xxloga outpatient visit 25 minutes Tian SantizosFPG [facility] [place]Start: 29-80-8574Qagazrmgm encounterBryan SuzanFPG [facility] [place]Start: 10-05-2021 End: 96-81-6716ruqfumoorgYewhz Kuns Other [employer] Other Start: 08-20-4729Rpjtmcjsr encounterBryan SuzanFPG [facility] [place]Start: 08-19-2021 End: 71-81-5789wkbimvoeykPayxd Kuns Other [employer] Other Start: 74-10-4313Cmmnrwpgf encounterBryan SuzanFPG [facility] [place]Start: 06-17-2021 End: 19-80-7022rgwwxcxmloFmvdt Kuns Other [employer] Other Start: 74-03-0519Vlydsif encounter procedureTian Hall [facility] Family Medicine [place]Start: 04-07-2021 End: 86-40-7286ohxtehiouhPwfrv Sukhdevs Other [employer] Other Start: 39-66-9343Qbturdhnl encounterBrykenrick HallFPG [facility] [place]Start: 02-23-2021 End: 35-12-8325jfgxswyyebRdxiv Sukhdevs Other [employer] Other Start: 46-90-6640Vmejndosp encounterBrykenrick HallFPG [facility] [place]aliaStart: 37-04-1189Vfkqff outpatient visit 15 minutesBrykenrick SuzanFPG [facility] [place] Procedures DateProcedureProcedure DetailPerforming ClinicianStart: 83-61-3497HKG (POC)Tian Hall DO Work Phone: Start: 46-83-1941Yyppauupw mammography of bilateral breastsDO Tian Hall Work Phone: Start: 52-01-3533Vhcxuksqh mammography of bilateral breastsDO Tian Hall Work Phone: Biopsy of skinTian Hall Work Phone: Comment on above:left ear;ColonoscopyTian Hall Work Phone: Partial hysterectomyTian Hall Work Phone: Plan of Treatment DateCare ActivityDetailAuthorStart: 59-64-0238Njgopge referralK[facility] Work Phone: Start: 65-91-8656Ifbglsy [facility] Work Phone: Start: 48-92-5364AyxfnwfqyAcmc Healthcare System Comprehensive metabolic 1999 panel - Serum or PlasmaAcmc Healthcare SystemComprehensive metabolic 1999 panel - Serum or [facility] HospitalGlucose measurement estimated from glycated hemoglobinAcmc Healthcare SystemGlucose measurement estimated from glycated hemoglobin [facility] SystemPatient referralK[facility] Work Phone: [facility] Immunizations Immunization DateImmunizationNotesCare RtijgdyyMnwpaexa34-50-5776vtwkwxyss, seasonal, injectablePatient ObjectionTian Hall Other [employer] Other [id number] polysaccharide vaccine, 23 valentPatient ObjectionTian Hall Other [employer] Other [id number] toxoid, reduced diphtheria toxoid, and acellular pertussis vaccine, adsorbedPatient ObjectionTian Hall Other [employer] Other [id number], high dose seasonal, preservative-freePatient ObjectionBryan Kuns Other [employer] Other [id number] conjugate vaccine, 13 valent Patient ObjectionTian Hall Other [employer] Other [id number] vaccine recombinantPatient Objection Tian Hall Other [employer] Other NEGATED: Highlighted row has not occurred!05-21-2019 influenza, seasonal, injectablePatient ObjectionTian Hall Other [employer] Other NEGATED: Highlighted row has not occurred!2018 pneumococcal polysaccharide vaccine, 23 valentPatient ObjectionTian Hall Other [employer] Other NEGATED: Highlighted row has not occurred!2018 tetanus toxoid, reduced diphtheria toxoid, and acellular pertussis vaccine, adsorbedPatient ObjectionTian Hall Other [employer] Other NEGATED: Highlighted row has not occurred!2018 influenza, high dose seasonal, preservative-freePatient ObjectionTian Hall Other [employer] Other NEGATED: Highlighted row has not occurred!2018 pneumococcal conjugate vaccine, 13 valentPatient ObjectionTian Hall Other [employer] Other NEGATED: Highlighted row has not occurred!2018 zoster vaccine recombinantPatient ObjectionTian Hall Other [employer] Other Payers DatePayer CategoryPayerPolicy [id number]-vsm [id number] [id number] [id number] Health Insurance [id number] MEDICARE ADVMedicare [id number] [id number] Social History DateTypeDetailFacilityUnknown if ever smokedC[employer] Other Sex Assigned At [facility]Sex [facility] [employer] Other Start: 29-37-5976Mdl [facility]igned At [facility]No alcohol useNo alcohol use-[facility] 250 DO Work Phone: Start: 2018 End: 66-47-8067Bztgbur smoking status NHISNever smoked tobacco (finding) [facility]-30-2024 End: 34-24-6616VttNlomwq (finding)[facility] Medical Equipment Procedure CodeEquipment CodeEquipment Original TextEquipment IdentifierDates Accu-Chek Softclix Lancet DevStart: 78-94-7838Dcrxdjc (Accu-Chek Soft[employer]ix Lancets) miscStart: 91-25-5400Uqeudkm (Accu-Chek Softclix Lancets) miscStart: 15-06-8020Lulzfjk (Accu-Chek Soft[employer]ix Lancets) miscStart: 23-59-4325Xrakd Sugar Diagnostic stripStart: 87-58-3077Fhstsbb (Accu-Chek Softclix Lancets) miscStart: 66-86-2401Ncvsc Sugar Diagnostic stripStart: 96-41-4849Urhyhga (Accu-Chek Softclix Lancets) miscStart: 07-63-8372Dbdbh Sugar Diagnostic stripStart: 64-79-2586Rtxhcss (Accu-Chek Soft[employer]ix Lancets) miscStart: 55-54-4071Kfneh Sugar Diagnostic stripStart: 69-53-0879Nbhwbhz (Accu-Chek Soft[employer]ix Lancets) miscStart: 83-53-0638Cwrka Sugar Diagnostic stripStart: 07-34-7424Mcfsivx (Accu-Chek Softclix Lancets) miscStart: 55-97-8276Qxttt Sugar Diagnostic stripStart: 95-58-0678Rebgxhn (Accu-Chek Soft[employer]ix Lancets) miscStart: 34-22-6733Qfdgv Sugar Diagnostic stripStart: 80-66-0796Eplhqxf (Accu-Chek Soft[employer]ix Lancets) miscStart: 06-21-2023 Clinical Notes 04-12-2016 to 08-07-2024 Note Date & DqubLgulWuizcpyz33-85-7194 Evaluation note* Diagnosis Onset Date Resolution Status Admit Date Hypertension acuteMay 2024 8:55amPalpitationsacuteMay 2024 8:55am [facility] Work Phone: 1(312) 240-993305-20-2025 Evaluation note* Diagnosis Onset Date Resolution Status Admit Date Hypertension acuteMay 2024 8:55amPalpitationsacuteMay 2024 8:55amChest congestion acuteAugust 2024 1:19pmSinusitisacuteAugust 2024 1:19pmAcute cough acuteAugust 2024 8:25amPalpitationsacuteAugust 2024 8:25amType II diabetes mellitusacuteAugust 2024 8:25am [facility] Work Phone: 1(154) 321-993303-17-2025 Evaluation note* Author Teresa Murdock [facility] Healthcare SystemAuthoredMar 2024 9:51amThe above note written by ERENDIRA Bergeron acting as human recorder, note dictated by Dr. Tian Hall. [facility] Work Phone: 1(806) 760-494501-10-2025 Evaluation note* Diagnosis Onset Date Resolution Status Admit Date Cough acuteJanuary 2024 8:13amHyperlipidemiaacuteJanuary 2024 8:13am HypertensionacuteJanuary 2024 8:13amHypothyroidismacuteJanuary 2024 8:13amMedicare annual wellness visit, subsequentacuteJanuary 2024 8:13am PalpitationsacuteJanuary 2024 8:13amType II diabetes mellitusacuteJanuary 2024 8:13am [facility] Work Phone: 1(598) 406-409101-09-2024 Evaluation note* Encounter Date Diagnosis Assessment Notes Treatment Notes Treatment Clinical Notes Mar, Elevated blood pressure (ICD-10 - R03.0) Mar,Hypothyroidism (ICD-10 - E03.9) [employer] Other 11-02-2023 Evaluation note* Encounter Date Diagnosis [...] above medications, and continue with Dr. Box. [employer] Other 11-02-2023 Evaluation note* Encounter Date Diagnosis [...] Dr. Box. Jan,Seborrheic keratoses (ICD-10 - L82.1) [employer] Other 10-16-2023 Evaluation note* Encounter Date Diagnosis Assessment Notes Treatment Notes Treatment Clinical Notes Dec, Diabetes (ICD-10 - E11.9) [employer] Other 10-12-2023 Evaluation note* Encounter Date Diagnosis Assessment Notes Treatment Notes Treatment Clinical Notes Dec, Diabetes (ICD-10 - E11.9) [employer] Other 09-13-2023 Evaluation note* Encounter Date Diagnosis [...] worse if she is carrying anything. 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 Patient also wakes [...] her out today. She is in agreement [employer] Other 07-11-2023 Evaluation note* Encounter Date Diagnosis Assessment Notes Treatment Notes Treatment Clinical Notes Sep, Elevated blood pressure (ICD-10 - R03.0) [employer] Other 04-13-2023 Evaluation note* Encounter Date Diagnosis Assessment Notes Treatment Notes Treatment Clinical Notes Jun, Diabetes (ICD-10 - E11.9) [employer] Other 03-13-2023 Evaluation note* Encounter Date Diagnosis [...] persist or worsen to contact the office. [employer] Other 02-14-2023 Evaluation note* Encounter Date Diagnosis Assessment Notes Treatment Notes Treatment Clinical Notes Apr, Cough (ICD-10 - R05.9) 14 Apr, 2022RSV (acute bronchiolitis due to respiratory syncytial virus) (ICD-10 - J21.0) 14 Apr, 2022RSV bronchitis (ICD-10 - J20.5) [employer] Other 12-05-2022 Evaluation note* Encounter Date Diagnosis Assessment Notes Treatment Notes Treatment Clinical Notes Feb, Diabetes (ICD-10 - E11.9) Feb,Hypothyroidism (ICD-10 - E03.9) Feb,Hyperlipidemia, unspecified (ICD-10 - E78.5) [employer] Other 11-30-2022 Evaluation note* Encounter Date Diagnosis [...] (ICD-10 - E78.5) Jan,Hypothyroidism (ICD-10 - E03.9) [employer] Other 10-03-2022 Evaluation note* Encounter Date Diagnosis Assessment Notes Treatment Notes Treatment Clinical Notes Dec, Encounter for screen ing mammogram for malignant neoplasm of breast (ICD-10 - Z12.31) [employer] Other 08-02-2022 Evaluation note* Encounter Date Diagnosis [...] Medications prescribed at todays visit for sinusitis/bronchitis. [employer] Other 07-18-2022 Evaluation note* Encounter Date Diagnosis Assessment Notes Treatment Notes Treatment Clinical Notes Sep, Hyperglycemia (ICD-10 - R73.9) [employer] Other 06-01-2022 Evaluation note* Encounter Date Diagnosis Assessment Notes Treatment Notes Treatment Clinical Notes Aug, Diabetes (ICD-10 - E11.9) [employer] Other 03-30-2022 Evaluation note* Encounter Date Diagnosis [...] colon cancer (ICD-10 - Z12.11) Cologuard ordered. [employer] Other 01-18-2022 Evaluation note* Encounter Date Diagnosis Assessment Notes Treatment Notes Treatment Clinical Notes Mar, Hypothyroidism (ICD-10 - E03.9) [employer] Other 12-06-2021 Evaluation note* Encounter Date Diagnosis Assessment Notes Treatment Notes Treatment Clinical Notes Feb, Diabetes (ICD-10 - E11.9) [employer] Other 09-29-2021 Evaluation note* Encounter Date Diagnosis [...] Nov,Hypothyroidism (ICD-10 - E03.9) Blood work ordered. [employer] Other 01-23-2017 History general Narrative - Reported* Type Description Date Medical History Dexascan, Mammogram 2012 Medical HistoryHyperlipidemiaMedical HistoryType II diabetes mellitusMedical [id number] EldridgeMedical History04/12/16, 07/04/2018 Mammogram Medical History05/2018 Negative cologuardSurgical Historyvaginal delivery x2 Surgical Historyd&cSurgical HistoryTotal Hysterectomy with Dr. Barrazae104/2015 Hospitalization HistorySEE ABOVE [employer] [facility] [place] Other Chief complaint Narrative - ReportedCECILIA COLÓN is being seen for a consultation for an abnormal ECG and palpitations.-[facility] DO Work Phone: Evaluation noteNo InformationNortEncompass Health Rehabilitation Hospital of [facility] [place] Other Evaluation noteNo assessment information available [facility] Work Phone: Evaluation note* Author Lyric Kingsley [facility] mantecaAprut 2023 8:58am Sooner if needed, the ER if concerns,The above note written by Lyric Kingsley LPN acting as human recorder, note dictated by Dr. Tian Hall [facility] Work Phone: Evaluation note* Author Teresa Murdock [facility] 2024 9:51amThe above note written by ERENDIRA Bergeron acting as human recorder, note dictated by Dr. Tian Hall. [facility] Work Phone: History of Present illness [...] see her, at her request, as needed. -[facility] DO Work Phone: Hospital Discharge instructionsAmbulatory Orders* Referral to Dermatology Time Frame: 06/04/24, Location: None [facility] Work Phone: Reason for referral (narrative)* Reason [...] (E78.5) Referral Organization [facility] Referring Provider First Name Tian Referring Provider Last Name Suzan Referring Provider Specialty Family Prac aidan Referred Organization [facility] Referred Provider Shaheen Box Referred Address [address] [facility] [address] [place] [id number] Referred Provider Specialty Cardiology Referral Priority Routine [facility] [place] Other Reason for referral (narrative)No reason for referral information availableK[facility]tering [facility] Hospital Work Phone: Advance Directives Advance Directive [...] 30, 2024 8:13am Encounter for medication counseling [facility] 2024 9:14am Neoplasm of uncertain behavior [...] 30, 2024 8:13am Encounter for medication counseling [facility] 2024 9:14am Neoplasm of uncertain behavior [...] LABS PRINTED, hyperlipidemia,DM managementRefillClinical Acute IllnessRefillsmedicare wellness [id number] - 30 min [id number] - 30 min procedureRefills Care Teams (unrecognized [...] 2024 End: October 25, 2024Teresa Chapman APRN COMMUNICATIONS TOWER TECHNICIAN-CAttending ProviderActive Start: October 25, 2024 End: October [...] section and content) DATE CREATED AUTHOR 12/21/2022 [facility] DATE CREATED AUTHOR AUTHOR'S ORGANIZ ATION 12/21/2022 [employer] DATE CREATED AUTHOR AUTHOR'S ORGANIZ ATION 06/17/2024 [facility] DATE CREATED AUTHOR AUTHOR'S ORGANIZ ATION 06/29/2024 [facility] FOR RECORDS PERTAINING TO PATIENTS [...] BE BASED ON THE PRIMARY CLINICAL RECORDS. [facility] [employer] provides no warranty or guarantee of the accuracy or completeness of information in this document.
== END 2025-01-22 08:24 | disposition home or self-care (01) ==
LOC: LAB 08:23
PROVIDERS: PCP Family Medicine; Visit Provider Family Medicine
DX: E11.9 Type 2 diabetes mellitus without complications (principal)
CPT/HCPCS: 82043; 82570